=== PATIENT | female | born 1995 | race Caucasian/White ===

== ENCOUNTER 2023-08-15 12:46 | Outpatient (OUT) | payer OTHER, SELFPAY ==
--- NOTE | 2023-08-15 | US_ITS ---
The [address] [address] Patient Name: IZABEL VILLALOBOS MRN: [id number] date: 1995 Sex: F Assigned Patient Location: [facility] Current Patient Location: [facility] Accession/Order Number: [id number] Exam Date: 08/15/2023 12:49 Report Date: 08/15/2023 14:38 At the request of: ALEX HEATH Procedure: US OB transvaginal EXAMINATION: US OB transvaginal HISTORY: MISSED MENSES COMPARISON: No relevant comparison available. FINDINGS: GESTATIONAL SAC: Present and normal appearing. YOLK SAC: Present and normal appearing. POLE: Present and normal appearing. CARDIAC: Present. UTERUS: Normal size and appearance. OVARIES: Right: Normal. Left: Normal. CERVIX: cm in length and closed. CUL-DE-SAC: Normal. OTHER: None. AGE BY LMP: 9 weeks 0 days WILLIAM BY LMP: 03/19/2024 AGE BY US CRL: 9 weeks 1 day WILLIAM BY US CRL: 03/18/2024 US/US OB transvaginal IMPRESSION: 1. Single live intrauterine . Electronically authenticated by: NARENDRA MISTRY Date: 08/15/2023 14:38
== END 2023-08-15 12:47 | disposition home or self-care (01) ==
LOC: NOMS 12:46
PROVIDERS: Visit Provider Obstetrics & Gynecology
DX: N92.6 Irregular menstruation, unspecified (principal)
CPT/HCPCS: 76817

== ENCOUNTER 2023-09-03 12:59 | Outpatient (OUT) | payer OTHER, SELFPAY ==
[2023-09-03 13:28] LABS: Basophils Percent Auto 0.3 % (0.2-2.0); Eosinophils Absolute Auto 0.1 10^3/uL (0.0-0.7); Eosinophils Percent Auto 1.9 % (0.9-7.0); Hematocrit 39.8 % (36.0-48.0); Hemoglobin 13.5 g/dL (12.0-16.0); Lymphocytes Absolute Auto 1.4 10^3/uL (1.2-3.8); Lymphocytes Percent Auto 21.9 % (20.5-60.0); Mean Corpuscular HGB Conc 33.9 g/dL (29.9-35.2); Mean Corpuscular Hemoglobin 30.9 pg (26.7-34.0); Mean Corpuscular Volume 91.1 fL (81.0-99.0); Mean Platelet Volume 11.5 fL (9.5-13.5); Monocytes Absolute Auto 0.4 10^3/uL (0.3-0.8); Monocytes Percent Auto 6.2 % (1.7-12.0); Neutrophils Absolute Auto 4.4 10^3/uL (1.4-6.5); Neutrophils Percent Auto 69.7 % (43.0-75.0); Platelet Count 207 10^3/uL (150-450); Red Blood Count 4.37 10^6/uL (4.20-5.40); Red Cell Distribution Width 12.6 % (11.0-15.0); White Blood Count 6.3 10^3/uL (4.0-11.0)
[2023-09-03 13:48] LABS: Estimated Average Glucose 88 mg/dL; Glycohemoglobin A1C 4.7 % (4.5-6.2)
[2023-09-03 13:52] LABS: BOX Test Sent Out Y
[2023-09-04 06:08] LABS: HBsAg Screen Negative (Negative); HCV Ab Non Reactive (Non Reactive); HIV Ab/p24 Ag Screen Non Reactive (Non Reactive)
[2023-09-04 12:09] LABS: Rapid Plasma Reagin, Quant Non Reactive titer (NonRea<1:1)
== END 2023-09-03 13:00 | disposition home or self-care (01) ==
LOC: LAB 13:03
PROVIDERS: Visit Provider Obstetrics & Gynecology
DX: N92.6 Irregular menstruation, unspecified (principal); Z36.0 Encounter for antenatal screening for chromosomal anomalies
CPT/HCPCS: 36415; 83036; 85025; 86592; 86762; 86803; 86850; 86900; 86901; 87086; 87340; 87389

== ENCOUNTER 2023-09-12 20:27 | Outpatient (REF) | payer OTHER, SELFPAY | END 2023-09-12 20:28 | disposition home or self-care (01) | LOC: LAB 20:27 | PROVIDERS: Visit Provider Obstetrics & Gynecology | DX: Z01.419 Encounter for gynecological examination (general) (routine) without abnormal findings (principal) | CPT/HCPCS: G0145 ==

== ENCOUNTER 2023-11-07 09:34 | Outpatient (OUT) | payer OTHER, SELFPAY ==
--- NOTE | 2023-11-07 09:35 | US_ITS ---
[address] [address] Patient Name: IZABEL VILLALOBOS MRN: [id number] date: 1995 Sex: F Assigned Patient Location: [facility] Current Patient Location: [facility] Accession/Order Number: [id number] Exam Date: 11/07/2023 09:36 Report Date: 11/07/2023 11:12 At the request of: CESAR ASIF Procedure: US OB cervical length EXAMINATION: US OB anatomy, US OB cervical length HISTORY: ANATOMY COMPARISON: No relevant comparison available. TECHNIQUE: Transabdominal sonographic examination was performed for obstetrical and evaluation. FINDINGS: Number: 1 Heart Rate: 150.0 bpm H.B. /min Amniotic Fluid Volume: Subjectively normal position: Cephalic presentation, longitudinal lie Placental Location: Anterior. The placenta is 6.3 cm from the cervical os Cervix Length: 5 cm , closed Normal anatomy: Lateral ventricles, cerebellum, posterior fossa, nose, lips, orbits, four-chamber heart, RVOT, LVOT, diaphragm, stomach, kidneys, abdominal cord insertion, bladder, umbilical arteries, three-vessel cord, spine, extremities BIOMETRY: BPD: 4.7 cm 20 weeks 1 days , 16% HC: 18.1 cm 20 weeks 3 days, 20% AC: 16.0 cm 21 weeks 1 days, 47% FL: 3.5 cm 21 weeks 1 days , 46% EFW:394.5 grams; 14 ounces, 47% FL/AC: 22.0 FL/BPD: 75.6 HC/AC: 1.1 GESTATIONAL AGE: Age by EDC: 21 weeks 0 days WILLIAM by EDC: 03/21/2024 Age by current US: 20 weeks 5 days WILLIAM by current US: 03/19/2020 US/US OB cervical length IMPRESSION: Normal anatomy scan Closed cervix measuring 5 cm in length *Reference: [employer] Practice Guideline for the performance of Obstetric Ultrasound Examinations, February 24, 2007. Electronically authenticated by: DAVID CHENG Date: 11/07/2023 11:12
--- NOTE | 2023-11-07 09:35 | US_ITS ---
[address] [address] Patient Name: IZABEL VILLALOBOS MRN: [id number] date: 1995 Sex: F Assigned Patient Location: [facility] Current Patient Location: [facility] Accession/Order Number: [id number] Exam Date: 11/07/2023 09:36 Report Date: 11/07/2023 11:12 At the request of: CESAR ASIF Procedure: US OB anatomy EXAMINATION: US OB anatomy, US OB cervical length HISTORY: ANATOMY COMPARISON: No relevant comparison available. TECHNIQUE: Transabdominal sonographic examination was performed for obstetrical and evaluation. FINDINGS: Number: 1 Heart Rate: 150.0 bpm H.B. /min Amniotic Fluid Volume: Subjectively normal position: Cephalic presentation, longitudinal lie Placental Location: Anterior. The placenta is 6.3 cm from the cervical os Cervix Length: 5 cm , closed Normal anatomy: Lateral ventricles, cerebellum, posterior fossa, nose, lips, orbits, four-chamber heart, RVOT, LVOT, diaphragm, stomach, kidneys, abdominal cord insertion, bladder, umbilical arteries, three-vessel cord, spine, extremities BIOMETRY: BPD: 4.7 cm 20 weeks 1 days , 16% HC: 18.1 cm 20 weeks 3 days, 20% AC: 16.0 cm 21 weeks 1 days, 47% FL: 3.5 cm 21 weeks 1 days , 46% EFW:394.5 grams; 14 ounces, 47% FL/AC: 22.0 FL/BPD: 75.6 HC/AC: 1.1 GESTATIONAL AGE: Age by EDC: 21 weeks 0 days WILLIAM by EDC: 03/21/2024 Age by current US: 20 weeks 5 days WILLIAM by current US: 03/19/2020 US/US OB anatomy IMPRESSION: Normal anatomy scan Closed cervix measuring 5 cm in length *Reference: [employer] Practice Guideline for the performance of Obstetric Ultrasound Examinations, February 24, 2007. Electronically authenticated by: DAVID CHENG Date: 11/07/2023 11:12
== END 2023-11-07 09:35 | disposition home or self-care (01) ==
LOC: NOMS 09:34
PROVIDERS: Visit Provider Physician Assistant
DX: Z34.92 Encounter for supervision of normal pregnancy, unspecified, second trimester (principal); Z36.89 Encounter for other specified antenatal screening; Z3A.20 20 weeks gestation of pregnancy
CPT/HCPCS: 36415; 76805; 76817; 82105

== ENCOUNTER 2023-11-07 10:37 | Outpatient (OUT) | payer OTHER, SELFPAY ==
[2023-11-09 01:07] LABS: AFP Value 56.1 ng/mL (.); Insulin Dep Diabetes No (.); Maternal Age At EDD 28.3 yr (.); OSBR Risk 1 IN 10000 (.); Results Report (.)
== END 2023-11-07 10:38 | disposition home or self-care (01) ==
LOC: LAB 10:38
PROVIDERS: Visit Provider Obstetrics & Gynecology
DX: Z34.92 Encounter for supervision of normal pregnancy, unspecified, second trimester (principal); Z36.89 Encounter for other specified antenatal screening
CPT/HCPCS: 36415; 82105

== ENCOUNTER 2023-12-13 10:31 | Outpatient (OUT) | payer OTHER, SELFPAY ==
--- OUTSIDE RECORDS SUMMARY | 2023-12-13 10:42 | XMS_ITS | CCD ---
Author Organization [facility] Inform ion Partnership [facility] Care Team Providers Care Furnace Attendant Name Role Phone Unavailable Primary Care Provider UnavailSUZI [place] Admitting Unavailable SUZI ALMONTE Attending Unavailable BHARAT, DR EVANS Attending Unavailable BHARAT, DR EVANS Consulting Unavailable BHARAT, DR EVANS Admitting Unavailable MISC, DR MADRID Primary Care Unavailable NONE, XXXX Primary Care Physician Unavailab Cheryl Moraes Unavailable Unavailable Aidan Melton Attending Unavailable ALEX HEATH Attending Unavailable CESAR ASIF Attending Unavailable ALEX HEATH Attending Unavailable Medications Current Medications Medication Drug Class(es) Dates Sig (Normalized) Sig (Original) acetaminophen 325 mg / HYDROcodone bitartrate 5 mg oral tablet (1 source) Opioid Agonist Start: 07-06-2020 End: 07-13-2020 take 1 tablet by mouth every six hours as needed for pain, then take 1 tablet by mouth as needed for pain HYDROcodone-acetamin ophen (NORCO) 5-325 MG per tablet Indications: Postoperative state Take 1 tablet by mouth every 6 hours as needed for Pain for up to 7 days. Intended supply: 3 days. Take lowest dose possible to manage pain 24 tablet 0 07/06/2020 07/13/2020 Active amoxicillin 875 mg oral tablet (1 source) Penicillin-class Antibacterial Start: 08-20-2023 End: 08-27-2023 take 1 tablet by mouth twice daily amoxicillin 875 mg Tab 875 mg = 1 tab(s), Oral, BID, X 7 day(s), # 14 tab(s), Refills(s) 0, Pharmacy: [facility], 165, cm, 08/20/23 14:01:00 EDT, Height/Length Dosing, 70.4, kg, 08/20/23 14:01:00 EDT, Weight Dosing Start Date: 08/20/23 Stop Date: 08/27/23 Status: Ordered 30 ml bupivacaine hydrochloride 5 mg/ml injection (1 source) Amide Local Anesthetic Start: 07-06-2020 bupivacaine (PF) (MARCAINE) 0.5 % injection 10 ml bupivacaine liposome 13.3 mg/ml injection (1 source) Start: 07-06-2020 bupivacaine liposome (EXPAREL) 1.3 % injection calcium chloride 0.0014 meq/ml / potassium chloride 0.004 meq/ml / sodium chloride 0.103 meq/ml / sodium lactate 0.028 meq/ml injectable solution (1 source) Start: 07-06-2020 lactated ringers infusion cephalexin 500 mg oral capsule (1 source) Cephalosporin Antibacterial Start: 07-06-2020 End: 07-13-2020 take 1 capsule by mouth three times daily cephALEXin (KEFLEX) 500 MG capsule Take 1 capsule by mouth 3 times daily for 7 days 21 capsule 0 07/06/2020 07/13/2020 Active 1 ml diphenhydrAMINE hydrochloride 50 mg/ml cartridge (1 source) Histamine-1 Receptor Antagonist Start: 07-06-2020 End: 07-06-2020 diphenhydrAMINE (BENADRYL) injection 12.5 mg docusate sodium 50 mg / sennosides, penitentiary 8.6 mg oral tablet (1 source) Start: 07-06-2020 take 8.6-50 mg by mouth once as needed senna-docusate (PERICOLACE) 8.6-50 MG per tablet Take 2 tablets by mouth daily as needed for Constipation Start taking 5 days after surgery. 60 tablet 1 07/06/2020 Active duloxetine 60 mg Cap-DR (1 source) Start: 08-11-2014 take 1 capsule by mouth once daily duloxetine 60 mg Cap-DR 60 mg, Oral, Daily, Refills(s) 0 Start Date: 08/11/14 Status: Ordered 2 ml fentaNYL 0.05 mg/ml injection (1 source) Opioid Agonist Start: 07-06-2020 fentaNYL (SUBLIMAZE) injection 25 mcg 1 ml hydrALAZINE hydrochloride 20 mg/ml injection (1 source) Arteriolar Vasodilator Start: 07-06-2020 hydrALAZINE (APRESOLINE) injection 5 mg 1 ml HYDROmorphone hydrochloride 1 mg/ml cartridge (1 source) Opioid Agonist Start: 07-06-2020 HYDROmorphone (DILAUDID) injection 0.5 mg ibuprofen 600 mg oral tablet (1 source) Nonsteroidal Anti-inflammatory Drug Start: 07-06-2020 take 1 tablet by mouth every six hours as needed for pain ibuprofen (ADVIL;MOTRIN) 600 MG tablet Take 1 tablet by mouth every 6 hours as needed for Pain 60 tablet 1 07/06/2020 Active loperamide hydrochloride 2 mg oral capsule (1 source) Opioid Agonist Start: 07-06-2020 End: 07-11-2020 take 1 capsule by mouth four times daily loperamide (IMODIUM) 2 MG capsule Take 1 capsule by mouth 4 times daily for 5 days 20 capsule 0 07/06/2020 07/11/2020 Active 1 ml meperidine hydrochloride 50 mg/ml injection (1 source) Opioid Agonist Start: 07-06-2020 meperidine (DEMEROL) injection 12.5 mg Misc Medication (1 source) Start: 03-29-2014 Misc Medication Control Pills daily Start Date: 03/29/14 Status: Ordered 30 ml morphine sulfate 1 mg/ml injection (1 source) Opioid Agonist Start: 07-06-2020 morphine (PF) injection 1 mg ondansetron 4 mg disintegrating oral tablet (2 sources) Serotonin-3 Receptor Antagonist Start: 07-06-2020 take 1 tablet by mouth every eight hours as needed for nausea ondansetron (ZOFRAN ODT) 4 MG disintegrating tablet Take 1 tablet by mouth every 8 hours as needed for Nausea or Vomiting 15 tablet 0 07/06/2020 Active Start: 07-06-2020 End: 07-06-2020 ondansetron (ZOFRAN) injecti on 4 mg 1 ml promethazine hydrochloride 25 mg/ml injection (1 source) Phenothiazine Start: 07-06-2020 End: 07-06-2020 promethazine (PHENERGAN) injection 6.25 mg 3 ml sodium chloride 9 mg/ml injection (5 sources) Start: 07-06-2020 sodium chlorid e flush 0.9 % injection Start: 07-06-2020 End: 07-06-2020 sodium chloride 0.9 % irriga tion Start: 07-06-2020 0.9 % sodium c hloride infusion Start: 07-06-2020 sodium chlorid e flush 0.9 % injection 10 mL Completed/Discontinued Medications Medication Drug Class(es) Dates Sig (Normalized) Sig (Original) MV-Min-Fe Fum-FA-DHA ( 1 PO) (1 source) MV-Min-Fe Fum-FA-DHA ( 1 PO) Take by mouth 0 Suspended tamsulosin hydrochloride 0.4 mg oral capsule (1 source) alpha-Adrenergic Jona Start: 07-06-2020 End: 07-06-2020 tamsulosin (FLOMAX) capsule 0.4 mg Start: 07-06-2020 End: 07-06-2020 tamsulosin (FLOMAX) capsule 0.4 mg Problems Problem Classification Problem Date Documented Date Episodic/Chronic Abdominal hernia (1 source) Left inguinal hernia 06-30-2019 Episodic Immunizations and screening for infectious disease (1 source) Encounter for screening for human papillomavirus (HPV); Translations: [ENC SCREENING HUMAN PAPILLOMAVIRUS] Onset: 02-15-2022 Episodic Other screening for suspected conditions (not mental disorders or infectious disease) (4 sources) Encounter for screening for malignant neoplasm of cervix; Translations: [ENC SCREENING MALIG NEOPLASM CERV] Onset: 02-14-2022 Episodic Otitis media and related conditions (1 source) Otitis media; Translations: [Otitis media, unspecified, right ear] Onset: 08-20-2023 Episodic Residual codes; unclassified (1 source) Needs influenza immunization 06-30-2019 Episodic Residual codes; unclassified (1 source) Postoperative state; Translations: [Postoperative state] Substance-related disorders (1 source) Cigarette smoker 06-30-2019 Chronic Comment on above: Added secondary to d ocumentation in Social History. Results Test Name Value Interpretation Reference Range Facil ity Ambulatory Visit Summaryon 0 08-20-2023 Ambulatory Visit Summary CRIS VILLALOBOSTONY Villalpando :1995 Visit Date:08/20/2023 Ambulatory Visit Instructions Your Diagnosis Right otitis media Your Care Team Attending Physician - Linh KWON, Aidan Butler Primary Care Physician - NONE, XXXX This Is Your Medications List amoxicillin (amoxicillin 875 mg Tab) Contact prescribing physician if questions or concerns Non-Formulary Medication (Misc Medication) duloxetine (duloxetine 60 mg Cap-DR) Procedures Performed left inguinal hernia repair (05/22/2013). Discharge Vitals Temperature (Temporal Artery) 36.5 ?C Heart Rate (Peripheral) 83 Blood Pressure 118/68 Height 165 cm Height 65 in Weight 70.4 kg Weight 154.88 lb BMI 25.86 Medications What How Much When Why Instructions New amoxicillin (amoxicillin 875 mg Tab) 1 Tablets By Mouth 2 times a day Right otitis media Duration: 7 Days Pickup at [facility] Unchanged duloxetine (duloxetine 60 mg Cap-DR) 60 Milligram By Mouth Every day Contact prescribing physician if questions or concerns Unchanged Non-Formulary Medication (Misc Medication) Control Pills daily Contact prescribing physician if questions or concerns Pharmacy Information [facility]: [address] [place] [id number] [phone] Medications and Immunizations Administered Not Given influenza virus vaccine, inactivated, Patient Refuses SARS-CoV-2 mRNA (tozinameran 5y-11y) vac, Postpone due to refusal Allergies No Known Allergies Problems Ongoing - Any problem that you are currently receiving treatment for. Cigarette smoker Influenza vaccination not up to date Historical - Any problem that you are no longer receiving treatment for. Left inguinal hernia Patient Survey You may receive a survey via text or e-mail asking about your office visit. Please share your experience with us by completing your survey. We appreciate your feedback and thank you for choosing us for your care. Education Materials Otitis Media, Adult Otitis media is a condition in which the middle ear is red and swollen (inflamed) and full of fluid. The middle ear is the part of the ear that contains bones for hearing as well as air that helps send sounds to the brain. The condition usually goes away on its own. What are the causes? This condition is caused by a blockage in the eustachian tube. This tube connects the middle ear to the back of the nose. It normally allows air into the middle ear. The blockage is caused by fluid or swelling. Problems that can cause blockage include: ? A cold or infection that affects the nose, mouth, or throat. ? Allergies. ? An irritant, such as tobacco smoke. ? Adenoids that have become large. The adenoids are soft tissue located in the back of the throat, behind the nose and the roof of the mouth. ? Growth or swelling in the upper part of the throat, just behind the nose (nasopharynx). ? Damage to the ear caused by a change in pressure. This is called barotrauma. What increases the risk? You are more likely to develop this condition if you: ? Smoke or are exposed to tobacco smoke. ? Have an opening in the roof of your mouth (cleft palate). ? Have acid reflux. ? Have problems in your body's defense system (immune system). What are the signs or symptoms? Symptoms of this condition include: ? Ear pain. ? Fever. ? Problems with hearing. ? Being tired. ? Fluid leaking from the ear. ? Ringing in the ear. How is this treated? This condition can go away on its own within 3?5 days. But if the condition is caused by germs (bacteria) and does not go away on its own, or if it keeps coming back, your doctor may: ? Give you antibiotic medicines. ? Give you medicines for pain. Follow these instructions at home: ? Take yuqm-rka-jqaydfj and prescription medicines only as told by your doctor. ? If you were prescribed an antibiotic medicine, take it as told by your doctor. Do not stop taking it even if you start to feel better. ? Keep all follow-up visits. Contact a doctor if: ? You have bleeding from your nose. ? There is a lump on your neck. ? You are not feeling better in 5 days. ? You feel worse instead of better. Get help right away if: ? You have pain that is not helped with medicine. ? You have swelling, redness, or pain around your ear. ? You get a stiff neck. ? You cannot move part of your face (paralysis). ? You notice that the bone behind your ear hurts when you touch it. ? You get a very bad headache. Summary ? Otitis media means that the middle ear is red, swollen, and full of fluid. ? This condition usually goes away on its own. ? If the problem does not go away, treatment may be needed. You may be given medicines to treat the infection or to treat your pain. ? If you were prescribed an antibiotic medicine, take it as told by yo (more content not included)... Normal [facility] Family Medicine Office/Clini c Noteon 08-20-2023 Family Medicine Office/Clinic Note Chief Complaint right ear pain HPI Staff 27 year old female presents with right ear pain, popping ,congestion, muffled hearing, feels like liquid in ear. No drainage. symptoms began two days ago. History of Present Illness Reviewed and agree with above documented HPI by medical assistant dermatology. Patient is a 27-year-old female who complains of right ear pain with a popping sensation and feeling of fluid in that ear. She denies any drainage from the ear. She states that the hearing on that side is muffled. The symptoms started about 2 days ago. She states that she does have some sinus congestion and has had that for about a week and a half. She states she has not done anything for treatment of symptoms. She has known allergies but she is currently with her second child. Review of Systems PHQ Score Initial Depression Screen Score: 0 SCORE Physical Exam Vitals & Measurements T: 36.5 ?C(Temporal Artery) HR: 83(Peripheral) BP: 118/68 SpO2: 99% HT: 65 in HT: 165 cm WT: 70.4 kg WT: 154.88 lb BMI: 25.86 General: Well developed, well nourished, in no acute distress, does not appear ill or septic Eyes: Pupils equal, round, and reactive to light. Conjunctivae and sclerae normal, and extraocular movements intact Ears: no deformity or lesions of external ear. Canals appear normal bilaterally. TM of left ear is intact, noninflamed, normal light reflex. TM of right ear is intact, inflamed, slightly bulging, absent light reflex. Hearing to the left ear is normal to conversational speech, right ear is diminished in hearing. Nose: No deformity, discharge, inflammation, or lesions Mouth: Mucous membranes moist. Normal oropharynx, and posterior pharynx without lesions or exudates. Tongue normal Neck: no adenopathy Lungs: Normal respiratory effort and clear to auscultation Cardio: regular rate and rhythm, no murmur Abdomen: Soft, non-distended, non-tender Musculoskeletal: No deformity or scoliosis noted. Normal range of motion. Joints normal. No erythema, edema, effusion, or ecchymosis Extremity: No clubbing, cyanosis, edema, or deformity, with normal ROM in both upper and lower bilateral extremities Neurologic: Grossly normal Skin: No rashes, ulcerations, or suspicious lesions Mental Status: Alert and oriented x3. Normal speech and thought content, normal mood and affect Assessment/Plan 1. Right otitis media (H66.91: Otitis media, unspecified, right ear) Will treat with amoxicillin. Finish course. Fluids/rest, PRN Tylenol/ibuprofen for pain and/or fever encouraged. May use antipyretics for symptomatic tx. Encouraged to follow up with PCP for recheck in about 5 days to ensure infection resolving, especially if symptoms worsening or fevers. Patient and/or parent verbalized understanding of treatment plan. Ordered: amoxicillin, 875 mg = 1 tab(s), Oral, BID, X 7 day(s), # 14 tab(s), Refills(s) 0, Pharmacy: [facility], 165, cm, 08/20/23 14:01:00 EDT, Height/Length Dosing, 70.4, kg, 08/20/23 14:01:00 EDT, Weight Dosing Portions of this record may have been created with voice recognition artificial intelligence software, specifically [employer], [employer] and or [employer]. Occasional wrong-word or `qkhvf-c-bewc? substitutions may have occurred due to the inherent limitations of voice recognition and artificial intelligence software. Follow-up No qualifying data available Patient Education Otitis Media, Adult, Efkq-rq-Gqqe Problem List/Past Medical History Ongoing Cigarette smoker Influenza vaccination not up to date Historical Left inguinal hernia Procedure/Surgical History left inguinal hernia repair (05/22/2013). Medications amoxicillin 875 mg Tab, 875 mg= 1 tab(s), Oral, BID duloxetine 60 mg Cap-DR, 60 mg, Oral, Daily, Not taking Misc Medication, Not taking Allergies No Known Allergies Social History Tobacco - Medium Risk, 06/30/2019 Former smoker, quit more than 30 days ago Tobacco Use:. Never Smokeless Tobacco Use:. Cigarettes, 08/20/2023 Family History Asthma: Sister. Hypertension: Mother and Father. Stroke: Grandparent. Immunizations Vaccine Date Status Comments influenza virus vaccine, inactivated - Not Given Patient Refuses SARS-CoV-2 mRNA (heber 5y-11y) vac - Not Given Postpone due to refusal Normal [facility] Comment on above: Result Comment: Elec tronically Signed By: Linh KWON, Aidan Miller.ryanne\Date and Time Signed: 08/20/23 14:33 EDT Patient Educationon 08-20-19 24 Patient Education ENT Otitis Media, Adult Otitis media is a condition in which the middle ear is red and swollen (inflamed) and full of fluid. The middle ear is the part of the ear that contains bones for hearing as well as air that helps send sounds to the brain. The condition usually goes away on its own. What are the causes? This condition is caused by a blockage in the eustachian tube. This tube connects the middle ear to the back of the nose. It normally allows air into the middle ear. The blockage is caused by fluid or swelling. Problems that can cause blockage include: ? A cold or infection that affects the nose, mouth, or throat. ? Allergies. ? An irritant, such as tobacco smoke. ? Adenoids that have become large. The adenoids are soft tissue located in the back of the throat, behind the nose and the roof of the mouth. ? Growth or swelling in the upper part of the throat, just behind the nose (nasopharynx). ? Damage to the ear caused by a change in pressure. This is called barotrauma. What increases the risk? You are more likely to develop this condition if you: ? Smoke or are exposed to tobacco smoke. ? Have an opening in the roof of your mouth (cleft palate). ? Have acid reflux. ? Have problems in your body's defense system (immune system). What are the signs or symptoms? Symptoms of this condition include: ? Ear pain. ? Fever. ? Problems with hearing. ? Being tired. ? Fluid leaking from the ear. ? Ringing in the ear. How is this treated? This condition can go away on its own within 3?5 days. But if the condition is caused by germs (bacteria) and does not go away on its own, or if it keeps coming back, your doctor may: ? Give you antibiotic medicines. ? Give you medicines for pain. Follow these instructions at home: ? Take snwt-szi-mmtwkqa and prescription medicines only as told by your doctor. ? If you were prescribed an antibiotic medicine, take it as told by your doctor. Do not stop taking it even if you start to feel better. ? Keep all follow-up visits. Contact a doctor if: ? You have bleeding from your nose. ? There is a lump on your neck. ? You are not feeling better in 5 days. ? You feel worse instead of better. Get help right away if: ? You have pain that is not helped with medicine. ? You have swelling, redness, or pain around your ear. ? You get a stiff neck. ? You cannot move part of your face (paralysis). ? You notice that the bone behind your ear hurts when you touch it. ? You get a very bad headache. Summary ? Otitis media means that the middle ear is red, swollen, and full of fluid. ? This condition usually goes away on its own. ? If the problem does not go away, treatment may be needed. You may be given medicines to treat the infection or to treat your pain. ? If you were prescribed an antibiotic medicine, take it as told by your doctor. Do not stop taking it even if you start to feel better. ? Keep all follow-up visits. This information is not intended to replace advice given to you by your health care provider. Make sure you discuss any questions you have with your health care provider. Document Revised: 08/21/2021 Document Reviewed: 08/21/2021 [employer] Patient Education ? 2022 [employer] Normal [facility] PAP ACOG PANEL 2: 21 to 29on 02-22-2022 . . Normal [facility] Comment on above: Performed By: #### [id number] #### [facility] [address] [place] [address] Dr. Jj Norman Age Gdln ACOG Testing - [facility] Comment on above: Performed By: #### [id number] #### [facility] [address] [address] [address] Jj Norman DIAGNOSIS: Comment [facility] Comment on above: Result Comment: NEGA TIVE FOR INTRAEPITHELIAL LESION OR MALIGNANCY. Performed By: #### [id number] #### [facility] [address] [address] [address] Jj Norman Methodology: Comment [facility] Comment on above: Result Comment: This liquid based ThinPrep(R) pap test was screened with the use of an image guided system. Performed By: #### [id number] #### [facility] [address] [place] [address] Dr. Jj Norman Note: Comment [facility] Comment on above: Result Comment: The Pap smear is a screening test designed to aid in the detection of premalignant and malignant conditions of the uterine cervix. It is not a diagnostic procedure and should not be used as the sole means of detecting cervical cancer. Both false-positive and false-negative reports do occur. . Performed By: #### [id number] #### [facility] [address] [place] [address] Dr. Jj Norman Performed by: Comment Normal [facility] Comment on above: Result Comment: Ashlyn Prado, Pesticide Chemist (ASCP) Performed By: #### [id number] #### [facility] [address] [place] [address] Dr. Jj Norman Reflex Criteria: Comment [facility] Comment on above: Result Comment: The HPV DNA reflex criteria were not met with this specimen result therefore, no HPV testing was performed. . Performed By: #### [id number] #### [facility] [address] [place] [address] Dr. Jj Norman Specimen adequacy: Comment [facility] Comment on above: Result Comment: Sati sfactory for evaluation. Endocervical and/or squamous metaplastic cells (endocervical component) are present. Performed By: #### [id number] #### [facility] [address] [place] [address] Dr. Jj Norman OPERATIVE REPORTon OPERATIVE REPORT [address] [id number] OPERATIVE REPORT PATIENT NAME: IZABEL ARCE : 1995 MED REC NO: [id number] ROOM: ACCOUNT NO: [id number] ADMIT DATE: 07/06/2020 PROVIDER: Suzi Almonte DATE OF PROCEDURE: 07/06/2020 INDICATIONS FOR SURGERY: Fecal incontinence, anal sphincter deficiency, and perineal disruption status post traumatic vaginal delivery with fourth-degree tear. PREOPERATIVE DIAGNOSES: Fecal incontinence, anal sphincter deficiency, perineal disruption status post traumatic vaginal delivery with fourth-degree tear, grade-2 rectocele, and perineal deficiency. POSTOPERATIVE DIAGNOSES: Fecal incontinence, anal sphincter deficiency, perineal disruption status post traumatic vaginal delivery with fourth-degree tear, grade-2 rectocele, perineal deficiency, internal and external anal sphincter tears and deficiency, poor tissue turgor. PROCEDURES: Posterior colpoperineorrhaphy with perineal revision and internal anal sphincteroplasty as well as overlapping external anal sphincteroplasty. SURGEON: Suzi Almonte DO DOCTOR OF NAPRAPATHY: Dagmar Womack DO ANESTHESIA: General endotracheal. FINDINGS: As above. SPECIMENS: None. COMPLICATIONS: None. BLOOD LOSS: Approximately 50 mL. DRAINS: In-and-out Powers catheterization. COURSE: Prior to the procedure, risks and benefits of the procedure were explained to the patient. The patient understood and signed informed consent under no duress or confusion. A rectovaginal fistula had been ruled out in the office. The patient understands she could have some persistent fecal incontinence or urgency, that there could be rare risk of wound breakdown or fistula formation with long-term dyspareunia of up to 17% over 2 years. It was discussed with her and advised that her next delivery be done via section. She was prepped preoperatively with a bowel prep to be medically constipated postoperatively for least 5-7 days to allow the area to heal without a large-caliber stool being evacuated out of the anus. She did receive preoperative antibiotics, and EPC cuffs were functioning. Her COVID and tests were negative. She was taken back to the OR and prepped and draped in sterile fashion in the dorsal lithotomy position under general anesthesia. She was confirmed to be neutrally positioned by myself in candy cane stirrups. The bladder was drained with in-and-out Powers catheterization. The perineum was grasped with 2 Allis clamps at the introitus. The area was infiltrated with approximately 20 mL of a mixture of 266 mg of Exparel with 20 mL of saline as well as 10 mL of 0.5% Marcaine plain for both immediate and long-term pain relief. The area of the posterior vagina, introitus, and perianus was injected and infiltrated with negative vascular withdrawal . A naveed-shaped incision was made with a 15-blade scalpel and extended up to the apex of the posterior rectocele, which was at the distal third of the vagina. Dissection down to the muscularis of the internal and external sphincters as well as the insertions of the bulbocavernosus and transverse perinei muscles was completed. The rectocele was dissected away from perirectal fascia and mucosa as perianal dissection helped to free up both areas of the external anal sphincter in particular. It is important to note that skin tissue turgor was extremely poor and elastic. Skin tended to tear really very easily, so extra caution was used to ensure no tearing of the mucosa or muscular tissue. It was noted that there was a rupture between the internal anal sphincter and the external anal sphincter that needed to be repaired as well. Cautery was used to treat some rather moderate oozing during dissection as well as pressure from operative sponges. 1-0 Vicryl suture was then used to build up the lateral perirectal fascia in an interrupted manner, incorporating the lower levators into the midline. Internal anal sphincteroplasty was also completed with 1-0 Vicryl suture with finger into the rectum to ensure no intrarectal suture placement as well as reestablishing a shelf of which to support the external anal sphincter apically. Next, the ends of the external anal sphincter found at 10 and 2 o'clock were brought into the midline, and in an overlapping manner, the right part of the sphincter was overlapped on top of the left portion using a [id number], doubly placed, 1-0 Vicryl suture in four quadrants as well as reattaching the distal internal sphincter to the capsule of the external sphincter apically. This reduced redundancy of the anus from approximately 2-1/2 fingerbreadths down to 1 to 1-1/2 fingerbreadths. Superficial perirectal fascia and was brought into the midline with 1-0 Vicryl suture from the apex to the introitus of the posterior colpoperineorrhaphy as well as building up the perineum and reestablishing the perineal body with plication of the bulbocavernosus and transverse perinei muscles to the sphincter complexes. Bleeding was negligible at this time. The vaginal mucosa was then closed in a locked running position with 1-0 Vicryl suture from the apex down to the posterior introitus and anterior hymenal ring. 3-0 Monocryl was then used in a double-imbricated running manner through the introitus to buildup the perineum and back up from the anus to the introitus. Labia minora that were lacerated around this area were trimmed and closed appropriately. This did not reduce the aperture of the vaginal introitus or hour-glass the vagina. It did help to get rid of extreme redundancy under anesthesia of up to 4 fingerbreadths down to 2-1/2 fingerbreadths. This redundancy seemed to affect the way the patient defecated and some of her dyspareunia. Vaginal length and girth were maintained to a healthy degree. The perineum which was less than 1 cm between the anus and posterior introitus was now built up to 4 cm without a high-riding introitus. All incisions were hemostatic, and sponge and needle counts were correct. The patient tolerated the procedure well and went to Recovery in stable fashion. The mother was updated by phone POSTOPERATIVE COURSE: The patient will undergo a voiding trial in postop, and if her pain is less than 5, she will go home. If greater than 5, she will stay to be managed overnight. She will go home on oral narcotic pain medicine to alternate with Motrin; a stool softener, not to start for 5-7 days; Imodium 2 tablets four times a day for the next week; she understands maintaining a liquid diet but may use protein shakes. If she does have a BM and cannot help it, she should try and make the BM as soft as possible with good oral intake of water. She may also go home on some Flomax for any mild urinary retention from an S2/3/4 reflex arc due to the surgery. SUZI ALMONTE [id number] Doc#: [id number] CC: Suzi Quinones Armida Normal [facility] POCT urine pregnancyon 07-06 Beta HCG ( test) Ql (U) Negative NEGATIVE [facility] [place] [place] [place] Comment on above: Specimens with hCG l evels near the threshold of the test (25 mIU/mL) may give a negative or indeterminate result. In such cases, another test should be performed with a new specimen in 48-72 hours. If early is suspected clinically in this setting, correlation with quantitative serum b-hCG level is suggested. TESTING PERFORMED AT [address] [place] [address] Vital Signs Date Time Vital Sign Value Performing Clinician Facility 08-20-2023 13:59-0400 Blood Pressure Location [facility] 08-20-2023 13:59-0400 Body temperature 97.7 [degF] [facility] 08-20-2023 13:59-0400 Diastolic blood pressure 68 mm[Hg] [facility] 08-20-2023 13:59-0400 Heart rate 83 /min [facility] 08-20-2023 13:59-0400 SaO2% (BldA) [Mass fraction] 99 % [facility] 08-20-2023 13:59-0400 Systolic blood pressure 118 mm[Hg] [facility] 07-06-2020 10:45-0500 BP Diastolic 82 mm[Hg] [place] 07-06-2020 10:45-0500 BP Systolic 121 mm[Hg] [place] 07-06-2020 10:45-0500 Pulse (Heart Rate) 89 /min [place] 07-06-2020 10:45-0500 Pulse Oximetry 100 % Suzi Tiara [place], [place] 07-06-2020 10:15-0500 Body Temperature 97.59 [degF] Suzi Almonte [place], [place] 07-06-2020 07:47-0500 BMI (Body Mass Index) 24 kg/m2 [place] 07-06-2020 07:47-0500 Body weight 65.43 kg Suzi Tiara [place], [place] 07-06-2020 07:47-0500 Respiratory Rate 18 /min Suzi Almonte [place], [place] 06-29-2020 10:13-0500 Height 165.1 cm Suzi Almonte [place] Encounters Encounter Date Encounter Type Care Provider Facility Start: 11-14-2023 End: 11-14-2023 ambulatory ALEX ARMIDA Not Available Start: 10-10-2023 End: 10-10-2023 ambulatory CESAR ASIF Not Available Start: 09-12-2023 End: 09-12-2023 ambulatory ALEX ARMIDA Not Available Start: 08-20-2023 End: 08-21-2023 ambulatory Aidan Melton Facility:[facility] Start: 08-20-2023 End: 08-20-2023 Patient encounter procedure Aidan Melton [facility] Start: 08-15-2023 End: 08-15-2023 ambulatory ALEX ARMIDA Not Available Start: 02-14-2022 End: 02-14-[address] NATHAN NICHOLSON Facility: Start: 07-06-2020 End: 07-06-2020 Patient encounter procedure SUZI ALMONTE [facility] Start: 07-06-2020 End: 07-06-2020 Subsequent hospital visit by physician Suzi Almonte Work Phone: [facility] [place] Comment on above: Postoperative state (Primary Dx) Procedures Date Procedure Procedure Detail Performing Clinician Start: 07-06-2020 Urine test visual color cmprsn meths Suzi Almonte Work Phone: Start: 05-22-2013 left inguinal hernia repair Aidan Melton Plan of Treatment Date Care Activity Detail Author Start: 01-26-2020 [facility] End: 07-06-2020 Blood glucose - POCT Blood glucose - POCT Point of Care Testing Routine One Time for 1 Occurrences starting 07/06/2020 until 07/06/2020 [facility] Comment on above: One Time for 1 Occur rences starting 07/06/2020 until 07/06/2020 Oxygen therapy [[facility] Data Set] Initiate Oxygen Therapy Protocol Respiratory Care Routine Daily until discontinued starting 07/06/2020 [facility] Comment on above: Daily until disconti nued starting 07/06/2020 Phase I & II - meter ed glucose Phase I & II - metered glucose Point of Care Testing Routine As Needed until discontinued starting 07/06/2020 [facility] Comment on above: As Needed until disc ontinued starting 07/06/2020 End: 07-06-2020 , urine POCT , urine POCT Point of Care Testing Routine One Time for 1 Occurrences starting 07/06/2020 until 07/06/2020 [facility] Comment on above: One Time for 1 Occur rences starting 07/06/2020 until 07/06/2020 Immunizations Immunization Date Immunization Notes Care Provider Fa cility NEGATED: Highlighted row has not occurred!08-20-2023 influenza virus vaccine, unspecified formulation [facility] NEGATED: Highlighted row has not occurred!08-20-2023 SARS-CoV-2 mRNA (tozinameran 5y-11y) vaccine [facility] Payers Date Payer Category Payer Unknown [id number] [id number] 1995 Unknown [id number] [id number] [id number] 1995 Unknown [id number] [id number] 1995 Unknown [id number] 2.16.84 [id number] 1995 Unknown [id number] 2.16.84 [id number] 1995 Unknown [id number] 2.16.84 [id number] 1995 Unknown [id number] 2.16.84 [id number] 1959 Private Health Insurance [id number] Social History Date Type Detail Facility Start: 07-06-2020 End: 08-20-2023 Tobacco smoking status NHIS Former smoker [facility] Start: 07-06-2020 Tobacco use and exposure Never used [place], [place] Start: 07-06-2020 Alcohol intake Ex-drinker (finding) [place] Start: 06-29-2020 Tobacco Comment Jun 2019 [place] Sex Assigned At Not on file [place] Exposure to SARS-CoV -2 (event) Not sure [place], [place] Tobacco smoking status Never [facility] Sex Assigned At Female [facility] Functional Status Date Assessment Result Facility 08-20-2023 Functional Status N/A [facility] Discharge instructions 08-20-2023 Note Date & Type Note Facility 08-20-2023 Hospital Discharg e instructions Patient Education 08/20/2023 14:33:02 Otitis Media, Adult, Iyfp-jc-[id number] Otitis Media, Adult Otitis media is a condition in which the middle ear is red and swollen (inflamed) and full of fluid. The middle ear is the part of the ear that contains bones for hearing as well as air that helps send sounds to the brain. The condition usually goes away on its own. What are the causes? This condition is caused by a blockage in the eustachian tube. This tube connects the middle ear to the back of the nose. It normally allows air into the middle ear. The blockage is caused by fluid or swelling. Problems that can cause blockage include: A cold or infection that affects the nose, mouth, or throat. Allergies. An irritant, such as tobacco smoke. Adenoids that have become large. The adenoids are soft tissue located in the back of the throat, behind the nose and the roof of the mouth. Growth or swelling in the upper part of the throat, just behind the nose (nasopharynx). Damage to the ear caused by a change in pressure. This is called barotrauma. What increases the risk? You are more likely to develop this condition if you: Smoke or are exposed to tobacco smoke. Have an opening in the roof of your mouth (cleft palate). Have acid reflux. Have problems in your body's defense system (immune system). What are the signs or symptoms? Symptoms of this condition include: Ear pain. Fever. Problems with hearing. Being tired. Fluid leaking from the ear. Ringing in the ear. How is this treated? This condition can go away on its own within 3 5 days. But if the condition is caused by germs (bacteria) and does not go away on its own, or if it keeps coming back, your doctor may: Give you antibiotic medicines. Give you medicines for pain. Follow these instructions at home: Take infa-sow-dhrqktr and prescription medicines only as told by your doctor. If you were prescribed an antibiotic medicine, take it as told by your doctor. Do not stop taking it even if you start to feel better. Keep all follow-up visits. Contact a doctor if: You have bleeding from your nose. There is a lump on your neck. You are not feeling better in 5 days. You feel worse instead of better. Get help right away if: You have pain that is not helped with medicine. You have swelling, redness, or pain around your ear. You get a stiff neck. You cannot move part of your face (paralysis). You notice that the bone behind your ear hurts when you touch it. You get a very bad headache. Summary Otitis media means that the middle ear is red, swollen, and full of fluid. This condition usually goes away on its own. If the problem does not go away, treatment may be needed. You may be given medicines to treat the infection or to treat your pain. If you were prescribed an antibiotic medicine, take it as told by your doctor. Do not stop taking it even if you start to feel better. Keep all follow-up visits. This information is not intended to replace advice given to you by your health care provider. Make sure you discuss any questions you have with your health care provider. Document Revised: 08/21/2021 Document Reviewed: 08/21/2021 [employer] Patient Education 2022 [employer]. [facility] Evaluation + Plan note Note Date & Type Note Facility Evaluation + Plan note No data available for this section [facility] Progress note Note Date & Type Note Facility Progress note No data available for this section [facility] Discharge Instructions * Instructions* Mackenzie Pinon RN - 07/06/2020 Learning About Urinary Catheter Care to Prevent Infection What is a urinary catheter? A urinary catheter is a flexible plastic tube used to drain urine from your bladder when you can't urinate on your own. The catheter allows urine to drain from the bladder into a bag. Two types of drainage bags may be used with a urinary catheter. A bedside bag is a large bag that you can hang on the side of your bed or on a chair. You can use it overnight or anytime you will be sitting or lying down for a long time. A leg bag is a small bag that you can use during the day. It is usually attached to your thigh or calf and hidden under your clothes. Having a urinary catheter increases your risk of getting a urinary tract infection. Germs may get on the catheter and cause an infection in your bladder or kidneys. The longer you have a catheter, the more likely it is that you will get an infection. You can help prevent this problem with good hygiene and careful handling of your catheter and drainage bags. How can you help prevent infection? Take care to be clean Always wash your hands well before and after you handle your catheter. Clean the skin around the catheter twice a day using soap and water. Dry with a clean towel afterward. You can shower with your catheter and drainage bag in place unless your doctor told you not to. When you clean around the catheter, check the surrounding skin for signs of infection. Look for things like pus or irritated, swollen, red, or tender skin around the catheter. Be careful with your drainage bag Always keep the drainage bag below the level of your bladder. This will help keep urine from flowing back into your bladder. Check often to see that urine is flowing through the catheter into the drainage bag. Empty the drainage bag when it is half full. This will keep it from overflowing or backing up. When you empty the drainage bag, do not let the tubing or drain spout touch anything. Keep the cap that comes with the tubing and cover the tip of the tubing when not in use. Be careful with your catheter Do not unhook the catheter from the drain tube until you are ready to change the tubing and bag. That could let germs get into the tube. Make sure that the catheter tubing does not get twisted or kinked. Do not tug or pull on the catheter. And make sure that the drainage bag does not drag or pull on the catheter. Do not put powder or lotion on the skin around the catheter. Talk with your doctor about your options for sexual intercourse while wearing a catheter. How do you empty a urine drainage bag? If your doctor has asked you to keep a record, write down the amount of urine in the bag before youempty it. Wash your hands before and after you touch the bag. 1. Remove the drain spout from its sleeve at the bottom of the drainage bag. 2. Open the valve on the drain spout. Let the urine flow out into the toilet or a container. Be careful not to let the tubing or drain spout touch anything. 3. After you empty the bag, close the valve. Then put the drain spout back into its sleeve at the bottom of the collection bag. How do you switch to a bedside bag for overnight use? Wash your hands before and after you handle the bags. 1. Empty the leg bag that is attached to the tubing and catheter. 2. Put a clean towel under the tubing attached to the leg bag. 3. Use an alcohol wipe to clean the tip of the tubing attached to the bedside bag. 4. To stop the flow of urine, pinch the catheter with your fingers just above the tubing connection. 5. Use a twisting motion to disconnect the leg bag tubing from the catheter. 6. Then securely connect the catheter to the tubing from the bedside bag. How can you clean a bedside drainage bag? Many people clean their bedside bag in the morning if they switch to a leg bag. To clean a bedside drainage ba. Remove the bedside bag and attach the leg bag. 2. Fill the bedside bag with 2 parts vinegar and 3 parts water. Let it stand for 20 minutes. 3. Empty the bag, and let it air dry. When should you call for help? Call your doctor now or seek immediate medical care if: You have symptoms of a urinary infection. These may include: ? Pain or burning when you urinate. ? A frequent need to urinate without being able to pass much urine. ? Pain in the flank, which is just below the rib cage and above the waist on either side of the back. ? Blood in your urine. ? A fever. Your urine smells bad. You see large blood clots in your urine. No urine or very little urine is flowing into the bag for 4 or more hours. Watch closely for changes in your health, and be sure to contact your doctor if: The area around the catheter becomes irritated, swollen, red, or tender, or there is pus draining from it. Urine is leaking from the place where the catheter enters your body. Follow-up care is a baca part of your treatment and safety. Be sure to make and go to all appointments, and call your doctor if you are having problems. It's also a good idea to know your test resultsand keep a list of the medicines you take. Where can you learn more? Go to [email or web address] and sign in to your [employer] account. Enter U010 in the Search Health Information box to learn more about Learning About Urinary Catheter Care to PreventInfection. If you do not have an account, please click on the Sign Up Now link. Current as of: November 23, 2019 Content Version: 12.6 [employer]. Care instructions adapted under license by [employer]. If you have questions about a medical condition or this instruction, always ask your healthcare professional. [employer] disclaims any warranty or liability for your use of this information. POSTOPERATIVE PATIENT INSTRUCTIONS MAJOR & MINOR SURGICAL PROCEDURES Congratulations! You have taken the brave step of undergoing a surgery in order to try to improve your health. Now it is time to focus on healing outside of the hospital / surgery center setting. To make your dismissal as successful as possible, it is recommended that you thoroughly review these postoperative instructions. These instructions pertain to, but are not limited to the following procedures: MAJOR ; Hysterectomy Vaginal / Laparoscopic / Robotic ; With or Without tube-ovarian Removal (Salpingo-oophorectomy) ; Sacrocolpopexy / Sacroperineopexy / Sacrocervicopexy (Lifting the vagina / cervix to the sacrum) ; Major Vaginal Prolapse repairs ; Cystocele repair (Anterior Colporrhaphy) ; Rectocele repair (Posterior Colporrhaphy) ; Enterocele repair ; Vaginal vault repair ; Closing or removal of the vagina (Colpocleisis / Colpectomy) ; Major urinary incontinence surgery (Dan Urethropexy, MMK) ; Major fibroid removal (Myomectomy) ; Major tubal surgery (re-anastomosis, ectopic , pelvic inflammatory disease) ; Major surgery for adhesions or endometriosis involving bowel ; Major vaginal mesh removal ; Fistula repair of the bladder or colorectum to the vagina ; Creation of a new vagina (Neovaginoplasty) or repair of a Mullerian Anomaly ; Other MINOR ; Hysteroscopy with Dilatation / Curettage, Endometrial Ablation ; Laparoscopy With or Without minor tubal or ovarian surgery ; Minor Vaginal Prolapse repairs ; Cystocele repair (Anterior Colporrhaphy) ; Rectocele repair (Posterior Colporrhaphy) ; Urethrocele repair ; Minor urinary incontinence surgery (Slings, Transurethral Bulking) ; Minor vaginal surgery (Mesh removal, Laser ablation, Biopsies, Labial revisions, Injections) ; Minor surgery of the bladder (DMSO, Hydrodistention, Botox, etc.) ; Other 1 POST OPERATIVE BASIC INSTRUCTIONS The office will call on the Saturday, or within 1 week, after your surgery to make sure you are doingwell and to answer questions. 1. Your 1st post-op visit will occur within 1-2 weeks after your surgery. 2. Your final post-op visit will occur @ 4-6 weeks depending on the surgery & your desire to return to work. 3. Your surgery and recovery may require more visits in between the 1st and final visits. DO S, DONT S, & WHEN TO CALL As reviewed with you on the morning of your discharge, for the 1st week out of surgery below is a QUICK list of DO s, DONT s, and WHEN TO CALL: 5 THINGS YOU MAY DO 5 THINGS YOU MAY NOT DO FOR 4-6 WEEKS -Shower with Ivory Soap and water -Tub bathe, hot tub, or swim -Gradually increase walking -Heavy lifting > 15lbs (2 gallons worth) -Go up and down stairs slowly -Insert anything into the vagina (sex, douching, tampons) -Drive a car / motorcycle (*See -Light housecleaning (dusting, dishwashing) Special Considerations) -Short local travel (restaurant, gnosticist) -Long distance travel > 1.5 hours (*See Special Considerations) 5 SYMPTOMS TO CALL FOR: -Sustained fever >100.4 despite Tylenol or a cold shower, especially associated with redness of incision/s -Pain out of the ordinary (>7) despite pain meds / anti-inflammatories -Heavy vaginal bleeding > 1 pad / hour with large red clots -Inability to eliminate urine (especially if catheterized) or flatus / stool (with sustained distention & nausea) -Calf pain or extreme shortness of breath QUESTIONS, CONCERNS, EMERGENCIES * Please call the office with any questions or concerns at [phone]. * If during office hours, your issue may require an appointment. If after hours, the answering service will connect you with the physician Neurology Physician Assistant. * If you are concerned that your issue may be emergent, PLEASE CALL FIRST. ; Many issues may be resolved over the phone and avoid an unnecessary and expensive ER visit. ; If you truly have an emergency related to the surgery and call first: *You will be directed to the hospital ER in which you had your surgery. [facility] primarily or [facility] rarely. [facility] patients may be asked to report to [facility] if Dr. Almonte s on-call partner is assuming responsibility. ; Calling first helps to expedite your care and avoids an unnecessary and expensive ambulance transfer to [facility]. Dial 911 or go to your closest ER if your emergency is related to a potential heart attack or stroke. 2 DISCHARGE MEDICINES * [place] 325/5mg tablets or alternative narcotic. Take 1-2 tablets by mouth every 4-6 hours as needed for pain. - Per [place] Board [employer] Pharmacy laws, only 1 week of narcotics may be prescribed at a time. - Do not take extra Tylenol (Acetaminophen) orally as [place] already contains the medicine. - May take 500mg orally every 4-6 hours if off of [place]. * Ibuprofen 400-800mg is safe to take. Take 1 tablet by mouth every 8 hours for inflammation. * Senokot S. Take two tablets by mouth every night to prevent constipation. Stop if loose stools occur. * If an antibiotic is required: Keflex 250-500mg take 1 tablet by mouth 3x / day as prescribed OR Cipro 250-500mg take 1 tablet by mouth 2x / day as prescribed * Other medicines or antibiotics may be prescribed based on your postoperative course or situation. *You may resume taking any medications you were taking before your surgery, unless told otherwise. DUE TO BLEEDING RISK, DO NOT RESUME HOME ANTICOAGULANTS UNLESS DISCUSSED SPECIAL CONSIDERATIONS After surgery, give yourself a chance to adjust and recover. Some patients feel fine within a month. Many need a little extra time. Do not be concerned if you feel fatigued for the first month, your body is recovering. It may take several weeks for you to get your energy back. Even if energy has returned, please do not be tempted to re-engage in strenuous activity. Although mild weight gain is not uncommon, most of it is IV fluid weight that your body will remove with time. You have the rest ofyour life to exercise, so some patience and rest is browning in the short term in order to heal successfully [employer]. Once you have fully recovered, you may focus on enjoying your life. Keep in mind, you will continue to heal for 6-12 months after surgery, so use common sense to protect your surgery (avoid repetitive heavy lifting, constipation, chronic pelvic strain.) In particular, if you had a hysterectomy, you may have both physical and emotional effects that maybe brief or fci. After hysterectomy, periods will stop and a woman can no longer achieve . Despite popular myth, post-hysterectomy weight gain is not due to the hysterectomy, but is usually a result of other factors. A depressive emotional reaction to loss of the uterus is not uncommon or abnormal. Please discuss any concerns with your health care provider if persistent. Sexual response may change after hysterectomy. There are no definitive studies showing decreased orgasmic potential post-hysterectomy. Some women have a heightened response due to correcting painful pathology. O varian removal may decrease estrogenization, leading to vaginal dryness and menopausal hot flashes.Hormonal therapy may need to be discussed. SOME SURGERIES HAVE SPECIAL CONSIDERATIONS MAJOR * For all major surgeries listed above, you may drive after your 1week post-op visit if cleared, have discontinued narcotic pain meds, and are able to depress the brake quickly without pain. Long distance travel may be resumed in 4 weeks if stable. * With major robotic hysterectomy, you should refrain from intercourse for 8 weeks, other hysterectomies 6 weeks. MINOR * Minor surgeries may drive next day any distance if off narcotic pain meds and are able to brake safely. * For minor vaginal surgeries for prolapse and / or urinary incontinence procedures, maintain pelvic rest for 4 weeks. Exercise and work may be resumed within 2-4 weeks depending on healing. * For minor surgeries of the vagina, uterus, and bladder, hysteroscopy, D&C, and laparoscopy, maintain pelvic rest for 1-2 weeks depending on healing. Exercise and work may be resumed within the week. 3 CONSENT ITEMS REVISITED IN THE POST OPERATIVE PERIOD 1. Physical and sexual activity will be restricted in varying degrees for an indeterminate period of time, but most often 2-8 weeks depending on the breadth of surgery. It is impossible to list everyundesirable effect and that the condition for which surgery is done is not always cured or significantly improved, and in rare cases may even worsen. 2. There is no 100% guarantee that the planned surgery, despite everything being done correctly andto the medico-surgical standard with resolve a condition 100% including but not limited to pain, urinary infections, bladder function, or defecatory dysfunction. Specifically, up to 20% of patients with abdominopelvic pain, 27% of those with UTI's, 16-26% with urinary incontinence or voiding dysfunction, and 40% with defecatory dysfunction may not see substantial long lasting improvement from a surgical intervention. 3. Dangerous blood clots in the legs or lungs may occur post-operatively. Patients on chronic bloodthinners, particularly those without antidote, may be at significant risk of bleeding, hemorrhage, hematoma formation, need for transfusion, and over the regular population. Life-threatening bleeding complications may even occur up to 4 weeks out of surgery even if anticoagulation is managed appropriately. If the patient has been taken off anticoagulation because of bleeding, this could expose her to life-threatening blood clots in the legs or lungs, IA, or stroke. 4. Elderly patients over the age of 70 may experience up to a 2% mortality rate in the postsurgicalperiod related to comorbidities and declining health. A living will and is recommended to be reviewed. 5. For major outpatient procedures requiring less than a 24 hour stay, you will be dismissed from the hospital or surgery setting when stable and meets criteria for discharge. Less than 5% of patients may rebound to an emergency setting for some of the risks mentioned above even though they have met criteria for dismissal earlier. Outpatient surgical recovery usually occurs between 2 and 4 weeks.For major inpatient procedures requiring an average 1-3 day hospital stay, and the patient may not be fully recovered from major surgery for up to 6-8 weeks. Please understand with Medicare and insurance reform, only 1 night will be approved for most reconstructive or robotic procedures. In regards to reconstructive pelvic and incontinence surgery: 1. Approximately 85% of patients experience a reasonable improvement >5 years in pelvic support and urinary/fecal incontinence, as well as urinary infections, after the procedure. There is a long-term risk of recurrent prolapse in up to 30% of women who have undergone reconstructive surgery if healthy lifestyle behaviors are not maintained. This includes but is not limited to smoking cessation, weight loss in the obese, reduction in heavy lifting, exercise, fall prevention, and bowel regularity. Reconstructive pelvic and/or urinary/fecal incontinence surgeries may only improve your condition/s mildly and may not completely resolve problems including but not limited to urinary tract infect ions and/or defecatory dysfunction. 17% of patients may still get a urinary tract infection and 40-60% of patients may still experience constipation postoperatively. 2. It may be hard to urinate for a few days or weeks. Sometimes, up to 40% of women cannot urinate efficiently after surgery due to swelling, anesthesia, or pain. Prolonged urinary retention may rarely occur after an incontinence or pelvic prolapse surgery and is more likely if retention predates surgery or includes factors that are not limited to neuropathy, diabetes mellitus, or prior pelvic surgery. The patient may need a catheter to drain the bladder for 1-2 weeks on average. Patients in Dr. Almonte's practice most often prefer a transurethral Powers. Other choices are a suprapubic catheter or intermittent self-catheterization. The patient has been given instructions on how to manage the type of catheter chosen, which will be reiterated postoperatively. Despite evidence indicating no need for antibiotics with a catheter, real world experience shows a 20-40% rate of UTI with a Powers catheter which depending on personal risk factors and extent of surgery, may require a prophylactic anti biotic afterwards. Antibiotics have risks of resistance, diarrhea and C. difficile infection. Suprapubic catheters carry a risk of urinoma, bowel injury, and bleeding and have a UTI risk of 15-20%. Intermittent self-catheterization carries an 11% risk of a UTI. In regards to labial or perineal reconstructive surgery: 1. You should expect some bruising and mild swelling with related discomfort following these surgeries that lasts 1-2 weeks. Ice packs and sitz baths may be utilized after surgery to help minimize swelling and discomfort. Mild analgesics are also used. Final optimal results can usually be appreciated in several months. Most patients may return to work or school within a week after surgery; however, strenuous activity or tight clothing is discouraged and patients must refrain from sexual intercourse for 4-6 weeks after surgery. 2. You may receive a topical antibiotic, which reduces risk of infection. Mild bleeding is not uncommon and can occur postoperatively if strenuous activity or intercourse is begun too early. Problemswith healing, such as incision separation, suture popping, scarring, and/or pain following the surgery are rare but can happen. 4 SPECIAL INSTRUCTIONS IF MRSA POSITIVE * Continue Bactroban to the nares 2x / day for 2 weeks post-operatively. Since many people are colonized in the community, it is not something we will routinely culture for post-operatively. TO PREVENT BLOOD CLOTS IN THE LEGS OR LUNGS / PNEUMONIA IN THE LUNGS * Regular walking or calf stretches and wearing a supportive hose may help prevent clots in the legs or lungs. * If interested, home pneumatic cuffs are available for purchase through the office if you wish to continue these at home. * Take home your incentive spirometer and utilize it as instructed to prevent pneumonia. * Smoking cessation before and after surgery is strongly encouraged. VAGINAL BLEEDING & DISCHARGE * You will likely experience light bleeding with the potential for small dime size clots, lasting 2-3 weeks after your surgery. This should not be construed as heavy bleeding. * You may notice an increase in vaginal discharge 4-6 weeks after your surgery, which may be watery, yellowish, or pinkish. It may have more of an acidic odor. This is common as the vagina flushes out edematous body fluid and dissolves the absorbable sutures. * As the healing process progresses, you may experience mild itching within the vagina, as well as outside the vaginal opening. If this itching become severe, and/or is accompanied by a foul smell and swelling, please call the office. DRAINS & WOUND CARE * If a drain or specific wound care appliance is present at the time of dismissal, please follow additional instructions that may be provided regarding maintenance of the device/s. * Basic daily maintenance of a drain is as follows: - You may wash around the drain site with warm, soapy water and pat dry with a towel. - If indicated, use a topical antibiotic around the drain site 2x / day. - Strip or milk the drain from the drain site to the bulb suction 3x / day. This clears any blockage from the drain. Simply pinch the drain at its insertion site into your body between your thumb and forefinger. Thensqueeze and pull the drainage tubing as you move towards the drain bulb, allowing the tube to slidebetween your fingers with mild resistance, you should see a suction effect within the drain tube that moves fluid toward the bulb. * Please call the office immediately if the drain falls out or cannot maintain suction. * Please call if redness of the drain site increases and is associated with fever, pain, or purulent discharge. CONSTIPATION * Patients are often constipated after a prolonged period of bed rest, or with the use of oral narcotic pain medications. If you have not had a bowel movement for 3 days after you are dismissed from the hospital, or are uncomfortable and unable to pass stool, please try one or all of the following measures in a stepwise manner: 1. Eat fruits, vegetables, prunes & whole-grain foods. Drink 8 glasses of fluid daily. Add PlumSmart juice. 2. Metamucil, FiberCon, or other bulking medication - use as directed 3. Milk of magnesia - 30 mL s by mouth every 12 hours 4. Dulcolax suppository - 1 suppository per rectum every 4-6 hours 5. Fleets enema use as directed unless told nothing per rectum (colorectal fistula repair) BLADDER DRAINAGE There is a >70% chance you will void on your own post-operatively. In particular to reconstructive and incontinence surgeries (whether you had incontinence before surgery or not), sometimes surgical effects of normal swelling and new positioning of the bladder may be associated with some mild tomoderate postoperative urinary leakage. Often this leakage is urge related. As discussed pre-operatively, up to 26% of patients with prolapse and negative urodynamic testing may develop de taylor incontinence afterwards. Please do not be frustrated if temporary incontinence occurs for it will most likely improve as you continue to heal. Leakage rarely persists long-term, there are many options for t reatment, and Dr. Almonte and his office staff are there to help you every step of the way. 5 [facility] The patient, (name), has been discharged from the hospital / surgery center on (date) from her operation. The patient has been given the appropriate postoperative instructions and they have been reviewed thoroughly with the patient and her family as necessary. The patient voices understanding and all questions have been answered to her and / or her family s satisfaction. Regarding her voiding ability at the time of discharge from the hospital: [ ] Patient was able to void on her own. (*RN to remove pages 7-16*) [ ] The patient was discharged with an indwelling Powers catheter and will do clamping trials at home. She will need a voiding trial at the office in 1 week. (*RN to include pages 7-10,15,16 & remove pages 11-14*) [ ] The patient was discharged with an indwelling Powers catheter and bladder rest. She will not undergo a voiding trial unless directed by Dr. Almonte at the first post-operative visit. (*RN to include pages 7-10,15,16 & remove pages 11-14*) [ ] Patient was taught intermittent self-catheterization. (*RN to include pages 7,8,11,15,16 & remove pages 9,10,12-14*) [ ] The patient was discharged with a suprapubic catheter. (*RN to include pages 7-10,12-16 & remove page 11*) RN Signature Date Patient or Family Member Signature Date FAX COMPLETED FORM TO: Suzi Almonte DO FAX: [phone] (Patient Sticker Here) 6 BLADDER DRAINAGE FOR THOSE PATIENTS REQUIRING A CATHETER Conversely, it may be hard for you to urinate for a few days or weeks. Sometimes, up to 30-40% of women cannot urinate efficiently after surgery due to swelling or anesthesia. This may last a few hours to a few weeks. You may be required to use a catheter in your bladder to help it drain and retrain it to work properly. One kind of catheter, called a Transurethral Powers Catheter, may be placed into the bladder through the urethra. This is usually reserved for large pelvic reconstructive surgeries and timely recovery. Some patients prefer to use a catheter intermittently to empty their bladder. This is called Intermittent Self-Catheterization (ISC). It is an easy technique to learn and helps to lessen the threat of urine infection. A third kind of catheter is called a Suprapubic Catheter (SPC). This catheter is placed through a small incision in the abdomen. A SPC is good for elderly patients or those whoare obese and may not be able to insert a catheter, or for complex bladder surgery requiring delayed recovery. Other tubes may help drain fluid from your incision/s. Unless instructed to maintain a catheter to drainage or to rest, you will begin plugging the end ofyour catheter with a small plastic plug in the hospital, and you will leave it plugged for set intervals of time. You will continue this upon dismissal. While your catheter is plugged, the urine willnot drain out of it, and your bladder will fill like it always has naturally. You will be sent home with a smaller day bag that straps to your leg for mobility plus a larger night bag to allow you torest all night without the need to drain the bag, and cleansing supplies. * If you have a Transurethral Powers Catheter, plugging of the catheter helps to wake up the bladderand increases capacity. By the time you come in for your 1st postoperative visit, 95% of patients will be ready to pass a voiding trial and have the catheter removed successfully. During daytime, tryplugging until you are comfortably full, then drain your bladder through the catheter. Your goal should be 2-4 hours of plugging between bladder emptying. You may put your catheter to drainage at night. * If you are performing Intermittent Self-Catheterization, you should attempt to urinate every houror so and then catheterize at the end of the time interval to measure how much urine is left in thebladder by emptying the catheter into the measuring hat. * If you have a Suprapubic Catheter, during the time that your catheter is plugged, you should attempt to urinate naturally every hour or so. At the end of the time interval, measure how much urine is left in the bladder by emptying the catheter into the measuring hat. 7 You will not begin progressing through the different intervals of the suprapubic plugging or catheterization routine until you are able to urinate normally through your urethra. Until this happens, you will repeat the 4 hour interval over and over. When you have started urinating normally, you willmeasure how much is left in your bladder at the end of each interval and make a decision about whether you may progress to the next time interval. Please see the respective catheterization routine pertinent to the type of catheter that you may have. Until the 12 hour interval is reached, the catheter should be hooked to the drainage bag every night to drain. After the 1st successful 24-hour interval, please call the office to update one of the nurses. Troubleshooting the Catheter It is not uncommon for the transurethral or suprapubic catheter to leak around the urethra or skin incision respectively as the bladder gets too full. If you have problems with this type of leaking, drain your bladder through the catheter. If leakage continues, reconnect your catheter to the Powers bag until the next morning, then restart the plugging routine. Please call the office with continuedleakage problems. Removing the Catheter The catheter is held in place inside your bladder by a water-filled balloon. Cutting the collar (next to the end of the part you ve been plugging) will cause the water inside the balloon to empty out, and the balloon will deflate. You may then remove the catheter by pulling on it gently. Things to Remember * You do not need to measure how much you urinate, ever. You need only to measure how much is left in your bladder (which gets drained from the catheter) at the end of each plugging interval. This isknown as the residual urine. You do not have to measure this residual every time you urinate normally; only at the end of the plugging interval. * You may find it easier to use the Powers bag at night to collect your urine. Doing this prevents you from having to get up in the night to drain your bladder. If you use the Powers bag, simply restart your most recent plugging interval when you wake up (for example, if you were at the 6 hour interval before bed, start at this interval routine in the morning.) * The site where a catheter is inserted into the urethra or abdomen may become pinkish, purplish, or develop a pus-like or crusty substance around it. These are your body s reactions to the catheter s presence, and are very normal. You may wash around the catheter daily with soap and water. Rinse and dry these areas well. You may shower while wearing the catheter. Maintain good personal hygiene. If this site develops a redness that spreads, or is warm and painful to the touch, please call the office immediately. * When changing from one bag to another, using a clean leg bag or Powers bag and an alcohol prep. Wash your hands thoroughly with soap and water and swab the end of the drainage tubing that will be attached to the Powers catheter. Disconnect the drainage bag from the Powers catheter and put the bag aside. Attach a clean bag to the catheter. Wash your hands thoroughly afterwards. * To clean the bags simply empty the urine from the bag and leave the spout open for cleaning. Mix a cup of vinegar and cup of cool water and flush the bag using a 50 mL syringe, or by submerging thebag under the mixture. Once the bag is filled, close the spout and allow the liquid to stay in the bag for 30 minutes. Drain the cleaning solution and rinse the bag again with tap water. Hang dry with the cap off and the spout open. A commercially prepared urinary appliance cesspool cleaner may also be usedas instructed. * It is important that when it is time to remove the catheter, do so in the morning, because you will need to urinate every 30-60 minutes on the day that you remove it. This is to keep the bladder empty and compressed, and to allow itself to heal. This is especially important for the suprapubic incision for those with suprapubic catheters. After removing the suprapubic catheter in particular, cover the site with a Band-Aid for the 1st 24-48 hours. * Drink at least 2 quarts of liquid a day. Avoid caffeinated drinks as they may irritate the bladder and cause bladder spasms. * Please remember to call the office once a week until the catheter is removed with an update on your progress. 8 HOW TO CARE FOR YOUR POWERS CATHETER FEMALE About this Topic: Powers catheter is a thin, flexible tube that drains urine from your bladder. The catheter connects to a special bag. The bag holds the urine until you are able to empty the bag. Youmay need to have a catheter for a short time. You may need a catheter after you are sick or have had surgery. Sometimes a catheter is used for a long time. What Will the Results Be: Your urine will drain and you will prevent infection. What Care is Needed at Home? ; Ask your doctor what you need to do when you go home. Make sure you ask questions if you do not understand what the doctor says. This way you will know what you need to do. ; Your doctor may order a home health nurse to come to your house to help you learn to care for your catheter. ; Prevent infections: ; Wash your hands before and after handling your catheter. ; If you switch between a leg bag and an overnight drainage bag, be sure you clean the connection between the catheter and the bag before you switch bags. Ask your doctor what to use to clean the connection. ; Place a cap on the drainage bag you are not using and store in a clean towel. ; Rinse the empty drainage bag not in use with 1 cup vinegar mixed with 1 cup water. ; Care for the tube: ; Wash the skin around the catheter with soap and water each day. Pat the skin dry. ; Do not put anything on the tube. ; Keep the tube secure. Do not let the tube pull or catch when you are moving around during the day. ; Do not let the tube kink or loop. ; Care for the Drainage Bag: ; Keep your urine bag below your bladder. ; Drain the bag often to help keep you from getting an infection. ; Wear cotton underwear. ; What Follow-Up Care Is Needed? Your doctor may ask you to make visits to the office to check on your progress. Be sure to keep these visits. ; ; ; ; 9 ; What Lifestyle Changes are Needed? ; Drink 6-8 glasses of water every day. ; Take showers rather than soaking in a bath. ; Will Physical Activity Be Limited? ; Talk to your doctor about what you can and cannot do when the catheter is in place. ; What Problems Could Happen? ; The catheter has a balloon to hold it inside the bladder. The balloon can break or leak and the catheter can fall out. ; Urine flow stops or is blocked by kinks or bends in the tube or if the drain bag is kept higher than your bladder. ; You may see blood in the collecting tube or bag. ; Bladder infection. ; When Do I Need To Call the Doctor? ; Signs of infection like a fever of 100.4F (38C) or higher, chills, pain around the catheter, redness or swelling of the skin around the catheter. ; Urine has blood and it is dark or coffee colored, or is pus-like. ; Tube comes out or urine stops flowing. ; Burning or painful feeling in your bladder. ; You are not feeling better in 2-3 days or you are feeling worse. ; Teach Back: Helping You Understand ; The Teach Back Method helps you understand the information we are giving you. The idea is simple.After talking with the staff, tell them in your own words what you were just told. This helps to make sure the staff has covered each thing clearly. It also helps to explain things that may have denae bit confusing. Before going home, make sure you are able to do these: ; I can tell you about my condition. ; I can tell you how to prevent infection and care for the tube and bag of my Powers catheter. ; I can tell you what I will do if my urine stops flowing or there is a burning or painful feeling in my bladder. 10 Intermittent Self-Catheterization (ISC) Instructions After your operation, you may experience swelling around the bladder and urethra. Swelling may limit the ability to pass urine naturally through your urethra. Intermittent Self-Catheterization (ISC) will allow you to pass your urine until this swelling subsides. This technique prevents discomfort from bladder over distention. By following the simple routine below, you will be able to use ISC to empty your bladder until yournatural ability to pass urine gradually returns. You will find that as your ability to pass urine naturally improves, the need for ISC will be less. On average, a woman should expect to have use ISC from 2 to 4 weeks. You may reuse catheters by cleaning them in hot soapy water if low on supplies. 1. Attempt to pass urine naturally as often as you like. At first, do not be surprised if you cannot pass urine in very small amounts. 2. Try to void naturally immediately before each self-catheterization. 3. During the day, self-catheterize every 3 - 4 hours to ensure bladder emptying. Use your non-dominant hand to gently spread your labia and wipe your urethra with a soap wipe. Use your dominant hand to introduce the catheter into the urethra until urine flow starts and then stops. 4. Measure the residual urine drained out of the catheter at the end of each interval. Use the measuring hat. If your catheterized amount is 400 ml or more, self- catheterize more often (every 2 -3 hours). 5. Start out with a self-catheterization schedule of every 3 - 4 hours if possible. This is equivalent to self-catheterizing 6 - 8 times per day. 6. When the amount catheterized is less than 150 ml on 2 occasions, increase your catheterization interval to every 6 hours, or 4 times per day. 7. When the amount catheterized is less than 150 ml on 2 occasions, increase your catheterization interval to every 8 hours, or 3 times per day. 8. When the amount catheterized is less than 150 ml on 2 occasions, increase your catheterization interval to every 12 hours, or 2 times per day. 9. When the amount catheterized is less than 150 ml on 2 occasions, increase your catheterization interval to every 24 hours, or 1 time per day. 10. Once the amount catheterized at the 24 hour interval is less than 150 ml on 1 occasion, self-catheterization may be stopped. SPECIAL INSTRUCTIONS * Call Dr. Almotne's office at [phone] on a weekly basis to report to Franny on your progress. * Call Dr. Almonte with the following problems: 1. Symptoms of a urinary infection (pain, burning, urgency, frequency, or blood). 2. Fever greater than 100.4 F on 2 occasions 4 hours apart. 3. The inability to pass urine through the catheter. 11 Suprapubic Catheter Instructions After your operation, you may experience swelling around the bladder and urethra. Swelling may limit your ability to pass urine naturally through your urethra. The suprapubic catheter (SPC) placed into your pubic hair area allows you to pass urine until swelling subsides. The SPC prevents discomfort from bladder over distention. The SPC site may be cleaned with soap and water. The SPC tucks discreetly into your underpants. By following the simple routine below, you will be able to use the SPC to empty your bladder until your natural ability to pass urine gradually returns. You will find that as your ability to pass urine naturally improves, the need to use your SPC will be less. On average, a woman should expect to have the SPC from 2 to 4 weeks. 1. Attempt to pass urine naturally as often as you like. At first, do not be surprised if you cannot pass urine in very small amounts. 2. Try to void naturally immediately before each unplugging of the SPC. 3. During the day, unplug your SPC every 3 - 4 hours to ensure bladder emptying. So you can sleep well at night, connect your SPC to the night bag. 4. Measure the residual amount drained out of the SPC at the end of each interval. Use the measuring hat. If your SPC amount is 400 cc or more, unplug more often (every 2 -3 hours). 5. Start out with an unplugging interval of every 3 - 4 hours if possible. This is equivalent to unplugging 6 - 8 times per day. 6. When the amount unplugged is less than 150 ml on 2 occasions, increase your unplugging interval to every 6 hours, or 4 times per day. 7. When the amount unplugged is less than 150 ml on 2 occasions, increase your unplugging interval to every 8 hours, or 3 times per day. At the 8 hour interval, you no longer need to connect your SPC to the night bag. 8. When the amount unplugged is less than 150 ml on 2 occasions, increase your unplugging interval to every 12 hours, or 2 times per day. 9. When the amount unplugged is less than 150 ml on 2 occasions, increase your unplugging interval to every 24 hours, or 1 time per day. 10. Once the amount unplugged at the 24 hour interval is less than 150 cc on 1 occasion, the SPC may then be removed. SPECIAL INSTRUCTIONS * Call Dr. Almonte's office at [phone] on a weekly basis to report on your progress or to arrange for removal of the SPC. * Call Dr. Almonte with the following problems: 1. Symptoms of a urinary infection (pain, burning, urgency, frequency, or blood). 2. Fever greater than 100.4 F on 2 occasions 4 hours apart. 3. The inability to pass urine through the SPC. 12 HOW TO CARE FOR YOUR SUPRAPUBIC URINARY CATHETER About this Topic: A suprapubic urinary catheter is a bendable rubber tube. It is put into an opening called a stoma. This is made in the lower belly wall that goes straight into the bladder. A bulb at the end of the tube sits against the bladder wall and keeps the tube from moving out of place. Thecatheter is used to drain urine from the bladder when the bladder is not working the right way or is blocked. This type of catheter may have less chance of infection. General: The skin near the stoma should be cleaned every day and checked for signs of infection. These include redness, swelling, pus, and soreness. Cleaning the Skin Near the Stoma: You may take showers, but check with your doctor about bathing, hot tubs, and swimming pools. Avoid using creams, powders or sprays near the tube site. ; Get the Things You Will Need: ; Gloves * Warm water and non-scented soap ; Clean, dry washcloth and towel * Clean gauze bandage ; Surgical tape * Plastic Trash Bag ; Wash your hands with soap and water. ; Put on clean gloves ; Hold the skin on all sides of the stoma. Gently take off the bandage. Be careful not to pull out the catheter. Throw the bandage away in the trash bag. ; Check for redness or swelling, colored or foul-smelling urine or drainage, or skin changes. Thesemay be signs of an infection. Call your doctor. ; Hold the end of the catheter tube while cleaning. ; Wash the base of the catheter and the skin near the stoma with warm soap and water. Wash away from the stoma, gently pat dry with a towel. ; Secure the catheter with a clean gauze bandage and tape. Changing the Catheter: ; Get the Things You Will Need: ; Drainage bag * Sterile gloves ; Syringe to remove water in the catheter balloon * Clean sterile gauze bandage ; Surgical tape * Plastic trash bag ; Wash your hands with soap and water before and after changing the catheter. ; Put on clean gloves. ; Take off the old bandage or dressing and throw in the trash bag. ; Clean the skin at the site. ; Remove and throw away your gloves. ; Open packages carefully before putting on sterile gloves so you do not infect yourself once gloved. Be careful not to contaminate the sterile items inside the packages, mainly the new catheter. It is very helpful to have someone help you. ; Put on sterile gloves and take care to keep things sterile at all times when working with the newcatheter. ; Fix the new catheter as you have been trained. ; Using the syringe, remove water from the old catheter bulb. ; Keep your fingers close to the site. Gently pull the catheter until it comes out. You can tell how far in the new catheter should go from the length of the catheter you took out. ; Clean the skin at the site again. 13 ; Make sure the drainage bag is attached to the new catheter. ; Gently put the new catheter in as far as the old one had been. ; Once urine begins to flow, inflate the bulb with about 8-10 mL water or the amount given on the package. If you have pain or feel resistance, withdraw the catheter a little and try again. If you cannot get the catheter in, cover the opening and call your caregiver right away. ; Secure the catheter with a new bandage. Tubing should be loose so it does not pull on the catheter. ; Throw away your gloves and any old catheter supplies. What Problems Could Happen? ; Infection * Bleeding ; Kidney damage * Bladder injury ; Bladder stones * Catheter gets displaced causing a leak or blockage When Do I Need to Call the Doctor? ; Signs of infection these include a fever of 100.4F (38C) or higher, chills, stomach pain. ; Signs of wound infection these include swelling, redness, warmth around the catheter site, too much pain when touched, yellowish/greenish or bloody discharge, foul smell coming from the site. ; Cloudy or foul smelling urine. ; Blood in urine. ; Stones or sediment in the tubing or drainage bag. ; Soreness near the tube. ; Very bad bladder pain or spasms. ; Urine leaking around the tube. ; No urine flowing into the bag; this could be a sign that the tube is clogged. ; Tubing comes out. Helpful Tips: ; To lower your chance if infection or other problems: ; Always wash your hands before and after you care for your catheter. ; Check your catheter often to be sure it is in the right position and secure to avoid leakage at the stoma. ; Keep the urine drain bag below the level of your bladder. ; Make sure to keep the tubing free of kinks so the urine flows freely. ; Avoid wearing tight-fitting clothing over the tubing that could block the flow of urine. ; Do not re-use single use drainage bags. ; Drink lots of liquids each day; avoid caffeine drinks and beer, wine, and mixed drinks (alcohol) which may bother the bladder. ; Eat lots of fiber each day to avoid hard stools. This will help to avoid a blockage and bladder pressure. 14 RECORD FOR VOIDED AND POSTVOID AMOUNTS Please record the time you void, the amount voided, and the amount left in your bladder after you empty it with your catheter. Date/Time Voided Amount Post Void Residual Amount Date/Time Voided Amount Post Void Residual Amount 15 [facility] SUPPLY LIST Please contact your local pharmacy or medical supply store regarding supplies for the type of catheter you may have. Transurethral Powers catheter 1 Night bag and 1 Day bag with leg strap Lubricating jelly Alcohol wipes Measuring had for toilet seat 5 50 mL syringes Self-Intermittent Catheterization Supplies: 100 #11-Bol[place] female catheters (hydrophilic if possible) Lubricating jelly Alcohol wipes Measuring hat for toilet seat Hand-held mirror Suprapubic catheter kit 1 Roll Transpire tape 1 inch 10 yards 1. Box of 25 drain dressings, precut, 6 pi 4 x 4 1 package catheter plugs 1. 2000 mL urinary drainage bag 1 day bag with leg strap 1 60 mL syringe catheter tip 1 Quart vinegar You may obtain the above supplies from the Pharmacy Counter at their 3 locations. [facility] [address] [address] [place] [address] [place] [address] Store hours: Saturday through Saturday 9 AM to 6 PM Saturday 9 AM to 1 PM Saturday closed 16 documented in this encounter History of Present Illness * Mackenzie Pinon RN - 07/06/2020 2:44 PM EST Indwelling powers cath care and edu discussed with pt. Supplies sent home. Questions answered. [facility]. Resident aware. * Donovan Gonzalez - 07/06/2020 11:15 AM EST CLINICAL PHARMACY NOTE: MEDS TO BEDS [facility] Select Patient?: No Total # of Prescriptions Filled: 6 The following medications were delivered to the patient: norco 5-325 pericolace Ondansetron ODT 4mg Ibuprofen 600 Cephalexin 500mg Loperamide 2mg Total # of Interventions Completed: 0 Time Spent (min): 0 Additional Documentation: * Mackenzie Pinon RN - 07/06/2020 10:40 AM EST Discharge inst discussed w/ pt an mother. Question answered. Scripts per pharmacy * Cristy Crump RN - 06/29/2020 10:27 AM EST DAY OF SURGERY/PROCEDURE GUIDELINES As a patient at the [facility] you can expect quality medical and nursing carethat is centered on your individual needs. It is our goal to make your surgical experience as comfortable and excellent as possible. The following instructions are general guidelines, if any information on this sheet is different from what your doctor has instructed you to do, please follow your doctor's instructions. Please arrive on time or your procedure may be rescheduled. Enter through front entrance C of the building. Upon arrival you will be taken to the pre-operative area to get ready for surgery You will be given a specific time when you will NOT be able to eat, drink, smoke, suck or chew ANYTHING (no water, gum, mints, cigarettes, cigars, pipes, snuff, chewing tobacco, etc.) or your surgerymay be canceled. This will occur during your PAT appointment or by phone 1-2 days before surgery Take a shower or bath on the morning of your surgery/procedure (Hibiclens if directed) [place] your teeth, but do not swallow any water IN CASE OF ILLNESS - If you have a cold or flu symptoms (high fever, runny nose, sore throat, cough, etc.) rash, nausea, vomiting, loose stools, and/or recent contact with someone who has a contagious disease (chick pox, measles, etc.) please call your doctor before coming to the surgery center Take a small sip of water with heart, blood pressure, and/or seizure medication the morning of surgery. (DO NOT take blood pressure medications that contain a diuretic) If applicable bring your: Inhaler (s) Hearing aid(s) Eyeglasses and Case (If you wear contacts they have to be removed before surgery, bring case and solution) Any paperwork given to you by your doctor Any X-rays you were told to bring A copy of your Living Will or Durable Power of [employer] DO NOT take anticoagulants (blood thinners, aspiring or aspirin-containing products) two weeks prior to your surgery. DO NOT take any diabetic pills or insulin. Please bring your sliding scale instructions and sick day plan with you. If you have a low blood sugar reaction after midnight, drink 4 ounces of apple juice or regular pop. Wear loose, comfortable clothing that is easy to put on and take off. You will be returning home the same day as your surgery, you will need to have a responsible adult (18 years of age or older) present to drive you home. You will need someone to stay with you at homefor the first 24 hours following your surgery. This is due to the anesthesia and the medications given to you during surgery and recovery. Your doctor may talk with your family immediately following your procedure. Depending on your needs, you will stay in the recovery room between 30 minutes to 2 hours. While you are recovering, the surgery family waiting room entry level receptionist can answer many of your family's questions. All medically related questions will be answered by a medical professional. If you had outpatient surgery, you will meet your family for discharge instructions before leaving. documented in this encounter Assessments Diagnosis Postoperative state- Primary Other postprocedural status Summary Purpose Family History No Family History Records FoundNo Family History Records Found No data available for this section No Family History Records FoundNo Family History Records Found Advance Directives No Advanced Directives Records FoundNo Advanced Directives Records FoundNo Advanced Directives Records FoundNo Advanced Directives Records Found Additional Source Comments Reason for Visit (unrecogniz ed section and content) Status Reason Specialty Diagnoses / Procedures Re ferred By Contact Referred To Contact Diagnoses Fourth degree perineal tear during delivery with problem PERINEAL 4* TEAR CHILDBIRTH Procedures SD OFFICE/OUTPT VISIT,PROCEDURE ONLY SD REPAIR OF PERINEUM,NON OBSTETRICAL SD REPAIR OF ANAL SPHINCTER,ADULT PERINEAL REVISION WITH [place] [id number] [address] [facility] Ordered Prescriptions (unrec ognized section and content) Prescription Sig Dispensed Refills Start Date End Da te ondansetron (ZOFRAN ODT) 4 MG disintegrating tablet Take 1 tablet by mouth every 8 hours as needed for Nausea or Vomiting 15 tablet 0 07/06/2020 loperamide (IMODIUM) 2 MG capsule Take 1 capsule by mouth 4 times daily for 5 days 20 capsule 0 07/06/2020 07/11/2020 senna-docusate (PERICOLACE) 8.6-50 MG per tablet Take 2 tablets by mouth daily as needed for Constipation Start taking 5 days after surgery. 60 tablet 1 07/06/2020 HYDROcodone-acetaminop hen (NORCO) 5-325 MG per tabletIndications:Post operative state Take 1 tablet by mouth every 6 hours as needed for Pain for up to 7 days. Intended supply: 3 days. Take lowest dose possible to manage pain 24 tablet 0 07/06/2020 07/13/2020 ibuprofen (ADVIL;MOTRIN) 600 MG tablet Take 1 tablet by mouth every 6 hours as needed for Pain 60 tablet 1 07/06/2020 cephALEXin (KEFLEX) 500 MG capsule Take 1 capsule by mouth 3 times daily for 7 days 21 capsule 0 07/06/2020 07/13/2020 INFORMATION SOURCE (unrecogn ized section and content) DATE CREATED AUTHOR 07/12/2020 [facility] DATE CREATED AUTHOR AUTHOR'S ORGANIZ ATION 02/25/2022 Berny Fitzgerald [facility] DATE CREATED AUTHOR AUTHOR'S ORGANIZ ATION 08/21/2023 [facility] DATE CREATED AUTHOR AUTHOR'S ORGANIZ ATION 11/16/2023 [facility] FOR RECORDS PERTAINING TO PATIENTS WHO ARE OR HAVE BEEN ENROLLED IN A CHEMICAL DEPENDENCY/SUBSTANCEABUSE PROGRAM, SOME INFORMATION MAY BE OMITTED. This clinical summary was aggregated from multiple sources. Caution should be exercised in using it in the provision of clinical care. This summary normalizes information from multiple sources, and as a consequence, information in this document may materially change the coding, format and clinical context of patient data. In addition, data may be omitted in some cases. CLINICAL DECISIONS SHOULD BE BASED ON THE PRIMARY CLINICAL RECORDS. [facility]. provides no warranty or guarantee of the accuracy or completeness of information in this document.
[2023-12-13 11:58] LABS: Basophils Percent Auto 0.3 % (0.2-2.0); Eosinophils Absolute Auto 0.1 10^3/uL (0.0-0.7); Eosinophils Percent Auto 1.3 % (0.9-7.0); Hematocrit 37.6 % (36.0-48.0); Hemoglobin 12.6 g/dL (12.0-16.0); Immature Granulocytes Abs Auto 0.03 10^3/uL (0.00-0.03); Immature Granulocytes Pct Auto 0.4 % (0.0-0.5); Lymphocytes Absolute Auto 1.1 10^3/uL (1.2-3.8); Lymphocytes Percent Auto 14.5 % (20.5-60.0); Mean Corpuscular HGB Conc 33.5 g/dL (29.9-35.2); Mean Corpuscular Hemoglobin 32.1 pg (26.7-34.0); Mean Corpuscular Volume 95.7 fL (81.0-99.0); Mean Platelet Volume 11.9 fL (9.5-13.5); Monocytes Absolute Auto 0.4 10^3/uL (0.3-0.8); Monocytes Percent Auto 5.7 % (1.7-12.0); Neutrophils Percent Auto 77.8 % (43.0-75.0); Platelet Count 167 10^3/uL (150-450); Red Blood Count 3.93 10^6/uL (4.20-5.40); Red Cell Distribution Width 13.1 % (11.0-15.0); White Blood Count 7.7 10^3/uL (4.0-11.0)
[2023-12-13 12:31] LABS: Glucose 1 Hour 118 mg/dL (<130)
== END 2023-12-13 10:32 | disposition home or self-care (01) ==
LOC: LAB 10:32
PROVIDERS: Visit Provider Obstetrics & Gynecology
DX: Z13.1 Encounter for screening for diabetes mellitus (principal)
CPT/HCPCS: 36415; 82950; 85025

== ENCOUNTER 2024-01-16 10:15 | Outpatient (OUT) | payer OTHER, SELFPAY ==
--- NOTE | 2024-01-16 10:18 | US_ITS ---
[address] [address] Patient Name: IZABEL VILLALOBOS MRN: [id number] date: 1995 Sex: F Assigned Patient Location: [facility] Current Patient Location: [facility] Accession/Order Number: [id number] Exam Date: 01/16/2024 10:18 Report Date: 01/16/2024 13:39 At the request of: ALEX HEATH Procedure: US OB growth EXAMINATION: US OB growth HISTORY: INCONSISTENT SIZE COMPARISON: Ultrasound OB anatomy 11/07/2023 FINDINGS: Heart Rate: 135 bpm Amniotic Fluid Volume: 9.9 cm; normal range. Number: 1 Position: CEPHALIC BIOMETRY: BPD: 7.55 cm; 30 weeks 2 days; 19.10 % HC: 28.30 cm; 31 weeks 0 days; 16.10 % AC: 26.27 cm; 30 weeks 3 days; 28.80 % FL: 5.88 cm; 30 weeks 5 days; 27.50 % EFW: 1540.69 g; 23.90 % FL/AC: 22.38 FL/BPD: 77.88 HC/AC: 1.08 GESTATIONAL AGE: Age by EDC: 31 weeks 0 days WILLIAM by EDC: 2024-03-19 Age by US: 30 weeks 4 days WILLIAM by US: 2024-03-22 US/US OB growth IMPRESSION: 1. Single live intrauterine with growth detailed above. Electronically authenticated by: NARENDRA MISTRY Date: 01/16/2024 13:39
--- OUTSIDE RECORDS SUMMARY | 2024-01-16 10:28 | XMS_ITS | CCD ---
Author Organization [facility] Inform ion Partnership [facility] Care Team Providers Care Leather Patcher Name Role Phone Unavailable Primary Care Provider UnavailSUZI [place] Admitting Unavailable SUZI ALMONTE Attending Unavailable BHARAT, DR EVANS Attending Unavailable BHARAT, DR EVANS Consulting Unavailable BHARAT, DR EVNAS Admitting Unavailable MISC, DR MADRID Primary Care Unavailable NONE, XXXX Primary Care Physician Unavailab Cheryl Moraes Unavailable Unavailable Aidan Melton Attending Unavailable ALEX HUFFMAN Attending Unavailable CESAR ASIF Attending Unavailable ALEX HUFFMAN Attending Unavailable ALEX HUFFMAN Attending Unavailable ALEX HUFFMAN Attending Unavailable Medications Current Medications Medication Drug [...] day(s), # 14 tab(s), Refills(s) 0, Pharmacy: [facility], 165, cm, 08/20/23 14:01:00 EDT, [...] mg docusate sodium 50 mg / sennosides, alf 8.6 mg oral tablet (1 source) Start: [...] Start: 07-06-2020 meperidine (DEMEROL) [facility] Start: 03-29-2014 Misc Medication [...] Visit Summaryon 0 08-20-2023 Ambulatory Visit Summary IZABEL VILLALOBOS :1995 Visit Date:08/20/2023 Ambulatory Visit Instructions Your [...] otitis media Duration: 7 Days Pickup at [facility] 1985 Unchanged duloxetine (duloxetine 60 mg Cap-DR) 60 Milligram By Mouth Every day Contact prescribing physician if questions or concerns Unchanged Non-Formulary Medication (Misc Medication) Control Pills daily Contact prescribing physician if questions or concerns Pharmacy Information [facility]: [address] [place] [id number] [phone] Medications and Immunizations Administered Not Given influenza virus vaccine, inactivated, Patient Refuses SARS-CoV-2 mRNA (toveronameran 5y-11y) vac, Postpone due to refusal Allergies [...] Follow these instructions at home: ? Take pfpi-noi-whwfbll and prescription medicines only as told by [...] by yo (more content not included)... [facility]/Cheloi c Bandar 08-20-2023 Family Medicine Office/Clinic Note Chief Complaint right ear pain HPI Staff 27 year old female presents with right ear pain, popping ,congestion, muffled hearing, feels like liquid in ear. No drainage. symptoms began two days ago. History of Present Illness Reviewed and agree with above documented HPI by medical records assistant. Patient is a 27-year-old female who complains [...] day(s), # 14 tab(s), Refills(s) 0, Pharmacy: [facility], 165, cm, 08/20/23 14:01:00 EDT, Height/Length Dosing, 70.4, kg, 08/20/23 14:01:00 EDT, Weight Dosing Portions of this record may have been created with voice recognition artificial intelligence software, specifically [employer], [employer] and or [employer]. Occasional wrong-word or `sfdlf-d-tsmx? substitutions may have occurred due to the inherent limitations of voice recognition and artificial intelligence software. Follow-up No qualifying data available Patient Education Otitis Media, Adult, Oros-ul-Uqmf Problem List/Past Medical History Ongoing Cigarette smoker [...] - Not Given Patient Refuses SARS-CoV-2 mRNA (toalenan 5y-11y) vac - Not Given Postpone due to refusal [facility] Comment on above: Result Comment: Elec tronically Signed By: Linh KWON, Aidan K\.br\Date and Time Signed: 08/20/23 14:33 EDT Patient Educationon 08-20-19 Patient Education ENT Otitis Media, Adult Otitis [...] Follow these instructions at home: ? Take ituh-jjd-bkchiji and prescription medicines only as told by [...] provider. Document Revised: 08/21/2021 Document Reviewed: 08/21/2021 [employer] Patient Education ? 2022 [employer] [facility] PAP ACOG PANEL 2: 21 to 29on 02-22-2022 . . Normal [facility] Comment on above: Performed By: #### [id number] #### [facility] [address] [place] [address] Dr. Jj Norman Age Gdln ACOG Testing - Normal [facility] Comment on above: Performed By: #### [id number] #### [facility] [address] [address] [address] Jj Norman DIAGNOSIS: Comment [facility] Comment on above: Result Comment: NEGA TIVE FOR INTRAEPITHELIAL LESION OR MALIGNANCY. Performed By: #### [id number] #### [facility] [address] [address] [address] Jj Norman Methodology: Comment [facility] Comment on above: Result Comment: This liquid based ThinPrep(R) pap test was screened with the use of an image guided system. Performed By: #### [id number] #### [facility] [address] [place] [address] Dr. Jj Norman Note: Comment [facility] Comment on above: Result Comment: The Pap smear is a screening test designed to aid in the detection of premalignant and malignant conditions of the uterine cervix. It is not a diagnostic procedure and should not be used as the sole means of detecting cervical cancer. Both false-positive and false-negative reports do occur. . Performed By: #### [id number] #### [facility] [address] [place] [address] Dr. Jj Norman Performed by: Comment Normal [facility] Comment on above: Result Comment: Ashlyn Prado, Manager House (ASCP) Performed By: #### [id number] #### [facility] [address] [place] [address] Dr. Jj Norman Reflex Criteria: Comment Normal [facility] Comment on above: Result Comment: The HPV DNA reflex criteria were not met with this specimen result therefore, no HPV testing was performed. . Performed By: #### [id number] #### [facility] [address] [place] [address] Dr. Jj Norman Specimen adequacy: Comment [facility] Comment on above: Result Comment: Sati sfactory for evaluation. Endocervical and/or squamous metaplastic cells (endocervical component) are present. Performed By: #### 4 [id number] #### [facility] [address] [place] [address] Dr. Jj Norman OPERATIVE REPORTon 1 OPERATIVE REPORT [address] [id number] OPERATIVE REPORT PATIENT NAME: IZABEL ARCE : 1995 MED REC NO: [id number] ROOM: ACCOUNT NO: [id number] ADMIT DATE: 07/06/2020 PROVIDER: Suzi Almonte DATE [...] external anal sphincteroplasty. SURGEON: Suzi Almonte DO TOOL ROOM ATTENDANT: Dagmar Womack DO ANESTHESIA: General endotracheal. FINDINGS: [...] top of the left portion using a yirine-rn-tiglk, doubly placed, 1-0 Vicryl suture in four [...] arc due to the surgery. SUZI ALMONTE [id number] Doc#: [id number] CC: Suzi Huffman [facility] POCT urine pregnancyon 07-06 Beta HCG ( test) Ql (U) Negative NEGATIVE [facility], [place] Comment on above: Specimens with hCG l evels near the threshold of the test (25 mIU/mL) may give a negative or indeterminate result. In such cases, another test should be performed with a new specimen in 48-72 hours. If early is suspected clinically in this setting, correlation with quantitative serum b-hCG level is suggested. TESTING PERFORMED AT [facility] [address] [place] [address] Vital Signs Date Time Vital Sign Value Performing Clinician Facility 08-20-2023 13:59-0400 Blood Pressure Location [facility] 08-20-2023 13:59-0400 Body temperature 97.7 [degF] [facility] 08-20-2023 13:59-0400 Diastolic blood pressure 68 mm[Hg] [facility] 08-20-2023 13:59-0400 Heart rate 83 /min [facility] 08-20-2023 13:59-0400 SaO2% (BldA) [Mass fraction] 99 % [facility] 08-20-2023 13:59-0400 Systolic blood pressure 118 mm[Hg] [facility] 07-06-2020 10:45-0500 BP Diastolic 82 mm[Hg] [place] 07-06-2020 10:45-0500 BP Systolic 121 mm[Hg] [place], [place] 07-06-2020 10:45-0500 Pulse (Heart Rate) 89 /min [place], [place] 07-06-2020 10:45-0500 Pulse Oximetry 100 % [place] 07-06-2020 10:15-0500 Body Temperature 97.59 [degF] [place] 07-06-2020 07:47-0500 BMI (Body Mass Index) 24 kg/m2 [place], [place] 07-06-2020 07:47-0500 Body weight 65.43 kg [place] 07-06-2020 07:47-0500 Respiratory Rate 18 /min [place] 06-29-2020 10:13-0500 Height 165.1 cm Suzi Croak [facility] [place] [facility] [place] Encounters Encounter Date Encounter Type Care Provider Facility Start: 01-01-2024 End: 01-01-2024 ambulatory ALEX KUMAR Not Available Start: 12-12-2023 End: 12-12-2023 ambulatory ALEX KUMAR Not Available Start: 11-14-2023 End: 11-14-2023 ambulatory ALEX KUMAR Not Available Start: 10-10-2023 End: 10-10-2023 ambulatory CESAR ASIF Not Available Start: 09-12-2023 End: 09-12-2023 ambulatory ALEX KUMAR Not Available Start: 08-20-2023 End: 08-21-2023 ambulatory Aidan Melton Facility:[facility] Start: 08-20-2023 End: 08-20-2023 Patient encounter procedure Aidan Melton [facility] Start: 08-15-2023 End: 08-15-2023 ambulatory ALEX KUMAR Not Available Start: 02-14-2022 End: 02-14-[address] NATHAN NICHOLSON Facility:[facility] Start: 07-06-2020 End: 07-06-2020 Patient encounter procedure SUZI ALMONTE [facility] Start: 07-06-2020 End: 07-06-2020 Subsequent hospital visit by physician Suzi Almonte Work Phone: [facility] [place] Comment on above: Postoperative state (Primary Dx) Procedures Date Procedure Procedure Detail Performing Clinician Start: 07-06-2020 Urine test visual color cmprsn meths Suzi Almonte Work Phone: Start: 05-22-2013 left inguinal hernia repair Aidan Melton Plan of Treatment Date Care Activity Detail Author Start: 01-26-2020 Influenza vaccination Flu vaccine (# 1) [facility] JANET End: 07-06-2020 Blood glucose - POCT Blood glucose - POCT Point of Care Testing Routine One Time for 1 Occurrences starting 07/06/2020 until 07/06/2020 [facility]ANET Comment on above: One Time for 1 Occur rences starting 07/06/2020 until 07/06/2020 Oxygen therapy [[facility] Data Set] Initiate Oxygen Therapy Protocol Respiratory Care Routine Daily until discontinued starting 07/06/2020 [facility] JANET Comment on above: Daily until disconti nued starting 07/06/2020 Phase I & II - meter ed glucose Phase I & II - metered glucose Point of Care Testing Routine As Needed until discontinued starting 07/06/2020 [facility] [place] Comment on above: As Needed until disc ontinued starting 07/06/2020 End: 07-06-2020 , urine POCT , urine POCT Point of Care Testing Routine One Time for 1 Occurrences starting 07/06/2020 until 07/06/2020 [facility] JANET Comment on above: One Time for 1 Occur rences starting 07/06/2020 until 07/06/2020 Immunizations Immunization Date Immunization Notes Care Provider Fa cility NEGATED: Highlighted row has not occurred!08-20-2023 influenza virus vaccine, unspecified formulation [facility] NEGATED: Highlighted row has not occurred!08-20-2023 SARS-CoV-2 mRNA (tozinameran 5y-11y) vaccine [facility] Payers Date Payer Category Payer Unknown [id number] 2.16.8 [id number] 1995 Unknown [id number] 2.16.84 [id number] 1995 Unknown [id number] 2.16.8 [id number] 1995 Unknown [id number] 2.16.84 [id number] 1995 Unknown [id number] 2.16.84 [id number] 1995 Unknown [id number] 2.16.84 [id number] 1995 Unknown [id number] 2.16.84 [id number] 1995 Unknown [id number] 2.16.84 [id number] 1995 Unknown [id number] 2.16.84 [id number] 1959 Private Health Insurance [id number] Social History Date Type Detail Facility Start: 07-06-2020 End: 08-20-2023 Tobacco smoking status NHIS Former smoker [facility] Start: 07-06-2020 Tobacco use and exposure Never used [place] Start: 07-06-2020 Alcohol intake Ex-drinker (finding) [place] Start: 06-29-2020 Tobacco Comment Jun 2019 [place], [place] Sex Assigned At Not on file [place] Exposure to SARS-CoV -2 (event) Not sure [place] Tobacco smoking status Never [facility] Sex Assigned At Female [facility] Functional Status Date Assessment Result Facility 08-20-2023 Functional Status N/A [facility] Hospital Discharge instructions 08-20-2023 Note Date & Type Note Facility 08-20-2023 Hospital Discharg e instructions Patient Education 08/20/2023 14:33:02 Otitis Media, Adult, Hvba-vo-Asvz Otitis Media, Adult Otitis media is a [...] pain. Follow these instructions at home: Take lpqm-ppt-leemire and prescription medicines only as told by [...] provider. Document Revised: 08/21/2021 Document Reviewed: 08/21/2021 [employer] Patient Education 2022 Project Manager. [facility] Evaluation + Plan note Note Date & Type Note Facility Evaluation + Plan note No data available for this section [facility] Progress note Note Date & Type Note Facility Progress note No data available for this section [facility] Discharge Instructions * Instructions* Mackenzie Pinon, DOUGLAS - 07/06/2020 Learning About Urinary Catheter Care [...] Where can you learn more? Go to [email or web address] and sign in to your Vilynx account. Enter U010 in the Search Health Information box to learn more about Learning About Urinary Catheter Care to PreventInfection. If you do not have an account, please click on the Sign Up Now link. Current as of: November 23, 2019 Content Version: 12.6 [employer]. Care instructions adapted under license by [email or web address]. If you have questions about a medical condition or this instruction, always ask your healthcare professional. [employer] disclaims any warranty or liability for your [...] dishwashing) Special Considerations) -Short local travel (restaurant, nondenominational) -Long distance travel > 1.5 hours (*See [...] office with any questions or concerns at [phone]. * If during office hours, your issue may require an appointment. If after hours, the answering service will connect you with the physician [employer]. * If you are concerned that your issue may be emergent, PLEASE CALL FIRST. ; Many issues may be resolved over the phone and avoid an unnecessary and expensive ER visit. ; If you truly have an emergency related to the surgery and call first: *You will be directed to the hospital ER in which you had your surgery. [facility] primarily or [facility] rarely. [facility] patients may be asked to report to [facility] if Dr. Almonte s on-call partner is assuming responsibility. ; Calling first helps to expedite your care and avoids an unnecessary and expensive ambulance transfer to [facility]. Dial 911 or go to your closest ER if your emergency is related to a potential heart attack or stroke. 2 DISCHARGE MEDICINES * [place] 325/5mg tablets or alternative narcotic. Take 1-2 tablets by mouth every 4-6 hours as needed for pain. - Per [place] Board of Pharmacy laws, only 1 week of narcotics may be prescribed at a time. - Do not take extra Tylenol (Acetaminophen) orally as [place] already contains the medicine. - May take 500mg orally every 4-6 hours if off of [place]. * Ibuprofen 400-800mg is safe to take. [...] short term in order to heal successfully exterminator termite. Once you have fully recovered, you may focus on enjoying your life. Keep in mind, you will continue to heal for 6-12 months after surgery, so use common sense to protect your surgery (avoid repetitive heavy lifting, constipation, chronic pelvic strain.) In particular, if you had a hysterectomy, you may have both physical and emotional effects that maybe brief or exterminator termite. After hysterectomy, periods will stop and a [...] blood clots in the legs or lungs, [place], or stroke. 4. Elderly patients over the [...] you every step of the way. [facility] The [...] Signature Date FAX COMPLETED FORM TO: Suzi Almonte, FAX: [phone] (Patient Sticker Here) 6 BLADDER DRAINAGE FOR [...] spout open. A commercially prepared urinary appliance creel cleaner may also be usedas instructed. * [...] be stopped. SPECIAL INSTRUCTIONS * Call Dr. Almonte's office at [phone] on a weekly basis to report to [...] INSTRUCTIONS * Call Dr. Almonte's office at [phone] on a weekly basis to report on [...] Voided Amount Post Void Residual Amount 15 [facility] HOME SUPPLY LIST Please contact your local pharmacy or medical supply store regarding supplies for the type of catheter you may have. Transurethral Powers catheter 1 Night bag and 1 Day bag with leg strap Lubricating jelly Alcohol wipes Measuring had for toilet seat 5 50 mL syringes Self-Intermittent Catheterization Supplies: 100 #11-Cymraes female catheters (hydrophilic if possible) Lubricating jelly [...] the Pharmacy Counter at their 3 locations. [facility] [address] [address] [place] [address] [place] [address] Store hours: Saturday through Saturday 9 AM to 6 PM Saturday 9 AM to 1 PM Saturday closed 16 documented in this encounter History of Present Illness * Mackenzie Pinon RN - 07/06/2020 2:44 PM EST Indwelling powers cath care and edu discussed with pt. Supplies sent home. Questions answered. [facility]. Resident aware. * Donovan Gonzalez - 07/06/2020 11:15 AM EST CLINICAL PHARMACY NOTE: MEDS TO [facility] Patient?: No Total # of Prescriptions [...] SURGERY/PROCEDURE GUIDELINES As a patient at the [facility] you can expect quality medical and nursing [...] morning of your surgery/procedure (Hibiclens if directed) [place] your teeth, but do not swallow any [...] your Living Will or Durable Power of Cash Control Specialist DO NOT take anticoagulants (blood thinners, aspiring [...] are recovering, the surgery family waiting room retail center receptionist can answer many of your family's [...] with problem PERINEAL 4* TEAR CHILDBIRTH Procedures [place] OFFICE/OUTPT VISIT,PROCEDURE ONLY [place] REPAIR OF PERINEUM,NON OBSTETRICAL [place] REPAIR OF ANAL SPHINCTER,ADULT PERINEAL REVISION WITH [place] [address] [place] [address] [facility] Ordered Prescriptions (unrec ognized section and content) [...] section and content) DATE CREATED AUTHOR 07/12/2020 [facility] DATE CREATED AUTHOR AUTHOR'S ORGANIZ ATION 02/25/2022 [facility] DATE CREATED AUTHOR AUTHOR'S ORGANIZ ATION 08/21/2023 [facility] DATE CREATED AUTHOR AUTHOR'S ORGANIZ ATION 01/03/2024 [facility] Specialists [facility] FOR RECORDS PERTAINING TO PATIENTS WHO ARE [...] BE BASED ON THE PRIMARY CLINICAL RECORDS. [facility] [employer] [facility]. provides no warranty or guarantee of the accuracy or completeness of information in this document.
== END 2024-01-16 10:16 | disposition home or self-care (01) ==
LOC: NOMS 10:15
PROVIDERS: Visit Provider Obstetrics & Gynecology
DX: O26.849 Uterine size-date discrepancy, unspecified trimester (principal); Z3A.30 30 weeks gestation of pregnancy
CPT/HCPCS: 76816

== ENCOUNTER 2024-02-20 19:12 | Outpatient (REF) | payer OTHER, SELFPAY ==
--- OUTSIDE RECORDS SUMMARY | 2024-02-20 19:15 | XMS_ITS | CCD ---
Author Organization [facility] Care Team Providers Care Cupola Worker Name Role Phone Unavailable Primary Care Provider UnavailSUZI [place] Admitting Unavailable SUZI ALMONTE Attending Unavailable BHARAT, DR EVANS Attending Unavailable KARJENK, DR EVANS Consulting Unavailable BHARAT, DR EVANS Admitting Unavailable MISC, DR MADRID Primary Care Unavailable NONE, XXXX Primary Care Physician Unavailab Cheryl Moraes Unavailable Unavailable Aidan Melton Attending Unavailable ARMIDA, ALEX Attending Unavailable CESAR ASIF Attending Unavailable ARMIDA, ALEX Attending Unavailable ARMIDA, ALEX Attending Unavailable ARMIDA, ALEX Attending Unavailable ARMIDA, ALEX Attending Unavailable CESAR ASIF Attending Unavailable ARMIDA, ALEX Attending Unavailable Medications Current Medications Medication Drug [...] day(s), # 14 tab(s), Refills(s) 0, Pharmacy: [facility], 165, cm, 08/20/23 14:01:00 [...] mg docusate sodium 50 mg / sennosides, correction 8.6 mg oral tablet (1 source) Start: [...] Your Care Team Attending Physician - Linh AYOUB-JORGE ALBERTOAidan Primary Care Physician - NONE, XXXX This [...] otitis media Duration: 7 Days Pickup at [facility] 1985 Unchanged duloxetine (duloxetine 60 mg Cap-DR) 60 Milligram By Mouth Every day Contact prescribing physician if questions or concerns Unchanged Non-Formulary Medication (Misc Medication) Control Pills daily Contact prescribing physician if questions or concerns Pharmacy Information [facility] 1986: [address] [place], [place] [id number] [phone] Medications and Immunizations Administered Not Given influenza [...] Follow these instructions at home: ? Take vtsq-mvj-pxsoqsu and prescription medicines only as told by [...] yo (more content not included)... Normal [facility] Medicine Office/Clini c Noteon 08-20-2023 Family Medicine Office/Clinic Note Chief Complaint right ear pain HPI Staff 27 year old female presents with right ear pain, popping ,congestion, muffled hearing, feels like liquid in ear. No drainage. symptoms began two days ago. History of Present Illness Reviewed and agree with above documented HPI by registered medical assistant. Patient is a 27-year-old female who [...] day(s), # 14 tab(s), Refills(s) 0, Pharmacy: [facility], 165, cm, 08/20/23 14:01:00 EDT, Height/Length Dosing, 70.4, kg, 08/20/23 14:01:00 EDT, Weight Dosing Portions of this record may have been created with voice recognition artificial intelligence software, specifically Phantom, Kynded and or [employer]. Occasional wrong-word or `mtlcr-x-cnxp? substitutions may have occurred due to the inherent limitations of voice recognition and artificial intelligence software. Follow-up No qualifying data available Patient Education Otitis Media, Adult, Ywph-vj-Iysj Problem List/Past Medical History Ongoing Cigarette smoker [...] Not Given Postpone due to refusal Normal [facility] Comment on above: Result Comment: Elec [...] Follow these instructions at home: ? Take tdcm-rst-rhvnmzj and prescription medicines only as told by [...] provider. Document Revised: 08/21/2021 Document Reviewed: 08/21/2021 [employer] Patient Education ? 2022 [employer] Normal [facility] PAP ACOG PANEL 2: 21 to 29on 02-22-2022 . . Normal [facility] Comment on above: Performed By: #### [id number] #### [facility] [address] [address] [address] Jj Norman Age Gdln ACOG Testing Normal [facility] Comment on above: Performed By: #### [id number] #### [facility] [address] [address] [address] Jj Norman DIAGNOSIS: Comment [facility] Comment on above: Result Comment: NEGA TIVE FOR INTRAEPITHELIAL LESION OR MALIGNANCY. Performed By: #### [id number] #### [facility] [address] [address] [address] Jj Norman Methodology: Comment [facility] Comment on above: Result Comment: This liquid based ThinPrep(R) pap test was screened with the use of an image guided system. Performed By: #### [id number] #### [facility] [address] [place] [address] Dr. Jj Norman Note: Comment Normal [facility] Comment on above: Result Comment: The Pap smear is a screening test designed to aid in the detection of premalignant and malignant conditions of the uterine cervix. It is not a diagnostic procedure and should not be used as the sole means of detecting cervical cancer. Both false-positive and false-negative reports do occur. . Performed By: #### [id number] #### [facility] [address] [place] [address] Dr. Jj Norman Performed by: Comment Normal [facility] Comment on above: Result Comment: Ashlyn Prado, Marketing Editor (ASCP) Performed By: #### [id number] #### [facility] [address] [place] [address] Dr. Jj Norman Reflex Criteria: Comment Normal [facility] Comment on above: Result Comment: The HPV DNA reflex criteria were not met with this specimen result therefore, no HPV testing was performed. . Performed By: #### [id number] #### [facility] [address] [place] [address] Dr. Jj Norman Specimen adequacy: Comment Normal [facility] Comment on above: Result Comment: Sati sfactory for evaluation. Endocervical and/or squamous metaplastic cells (endocervical component) are present. Performed By: #### [id number] #### [facility] [address] [place] [address] Dr. Jj Norman OPERATIVE REPORTon 1 OPERATIVE REPORT [address] [id number] OPERATIVE REPORT PATIENT NAME: IZABEL ARCE : 1995 MED REC NO: [id number] ROOM: ACCOUNT NO: [id number] ADMIT DATE: 07/06/2020 PROVIDER: Suzi Almonte DATE [...] external anal sphincteroplasty. SURGEON: Suzi Almonte DO PSYCHOLOGIST COUNSELING: Dagmar Womack DO ANESTHESIA: General endotracheal. FINDINGS: [...] top of the left portion using a dsqxuo-qq-crony, doubly placed, 1-0 Vicryl suture in four [...] to the surgery. SUZI ALMONTE [id number] Doc#: [id number] CC: Suzi Quinones Armida Normal [facility] POCT urine pregnancyon 07-06 Beta HCG ( test) Ql (U) Negative NEGATIVE [facility] [place] Comment on above: Specimens with hCG l evels near the threshold of the test (25 mIU/mL) may give a negative or indeterminate result. In such cases, another test should be performed with a new specimen in 48-72 hours. If early is suspected clinically in this setting, correlation with quantitative serum b-hCG level is suggested. TESTING PERFORMED AT [facility] [id number] [place] [address] Vital Signs Date Time Vital Sign Value Performing Clinician Facility 08-20-2023 13:59-0400 Blood Pressure Location [facility] 08-20-2023 13:59-0400 Body temperature 97.7 [degF] [facility] 08-20-2023 13:59-0400 Diastolic blood pressure 68 mm[Hg] [facility] 08-20-2023 13:59-0400 Heart rate 83 /min [facility] 08-20-2023 13:59-0400 SaO2% (BldA) [Mass fraction] 99 % [facility] 08-20-2023 13:59-0400 Systolic blood pressure 118 mm[Hg] [facility] 07-06-2020 10:45-0500 BP Diastolic 82 mm[Hg] [place], [place] 07-06-2020 10:45-0500 BP Systolic 121 mm[Hg] [facility] [place] 07-06-2020 10:45-0500 Pulse (Heart Rate) 89 /min [place], [place] 07-06-2020 10:45-0500 Pulse Oximetry 100 % [place], [place] 07-06-2020 10:15-0500 Body Temperature 97.59 [degF] [facility], [place] 07-06-2020 07:47-0500 BMI (Body Mass Index) 24 kg/m2 [place] 07-06-2020 07:47-0500 Body weight 65.43 kg [place] 07-06-2020 07:47-0500 Respiratory Rate 18 /min [facility], [place] 06-29-2020 10:13-0500 Height 165.1 cm Suzi Almonte [facility] [place] , [place] Encounters Encounter Date Encounter Type Care Provider Facility Start: 02-13-2024 End: 02-13-2024 ambulatory ALEX ARMIDA Not Available Start: 01-30-2024 End: 01-30-2024 ambulatory CESAR ASIF Not Available Start: 01-16-2024 End: 01-16-2024 ambulatory ALEX ARMIDA Not Available Start: 01-01-2024 End: 01-01-2024 ambulatory ALEX ARMIDA Not Available Start: 12-12-2023 End: 12-12-2023 ambulatory ALEX ARMIDA Not Available Start: 11-14-2023 End: 11-14-2023 ambulatory ALEX ARMIDA Not Available Start: 10-10-2023 End: 10-10-2023 ambulatory CESAR ASIF Not Available Start: 09-12-2023 End: 09-12-2023 ambulatory ALEX ARMIDA Not Available Start: 08-20-2023 End: 08-21-2023 ambulatory Aidan Melton Facility:[facility] Start: 08-20-2023 End: 08-20-2023 Patient encounter procedure Aidan Melton [facility] Start: 08-15-2023 End: 08-15-2023 ambulatory ALEX ARMIDA Not Available Start: 02-14-2022 End: 02-14-[address] NATHAN NICHOLSON Facility:[facility] Start: 07-06-2020 End: 07-06-2020 Patient encounter procedure USZI ALMONTE [facility] Start: 07-06-2020 End: 07-06-2020 Subsequent hospital visit by physician Suzi Almonte Work Phone: [facility] [place] Comment on above: Postoperative state (Primary Dx) Procedures Date Procedure Procedure Detail Performing Clinician Start: 07-06-2020 Urine test visual color cmprsn meths Suzi Almonte Work Phone: Start: 05-22-2013 left inguinal hernia repair Aidan Melton Plan of Treatment Date Care Activity Detail Author Start: 01-26-2020 Influenza vaccination Flu vaccine (# 1) [place], [place] End: 07-06-2020 Blood glucose - POCT Blood glucose - POCT Point of Care Testing Routine One Time for 1 Occurrences starting 07/06/2020 until 07/06/2020 [place] Comment on above: One Time for 1 Occur rences starting 07/06/2020 until 07/06/2020 Oxygen therapy [[facility] Data Set] Initiate Oxygen Therapy Protocol Respiratory Care Routine Daily until discontinued starting 07/06/2020 [place] Comment on above: Daily until disconti nued starting 07/06/2020 Phase I & II - meter ed glucose Phase I & II - metered glucose Point of Care Testing Routine As Needed until discontinued starting 07/06/2020 [place] Comment on above: As Needed until disc ontinued starting 07/06/2020 End: 07-06-2020 , urine POCT , urine POCT Point of Care Testing Routine One Time for 1 Occurrences starting 07/06/2020 until 07/06/2020 [place] Comment on above: One Time for 1 Occur rences starting 07/06/2020 until 07/06/2020 Immunizations Immunization Date Immunization Notes Care Provider Fa lilliam NEGATED: Highlighted row has not occurred!08-20-2023 influenza virus vaccine, unspecified formulation [facility] NEGATED: Highlighted row has not occurred!08-20-2023 SARS-CoV-2 mRNA (tozinameran 5y-11y) vaccine [facility] Payers Date Payer Category Payer Unknown [id number] 2.16.8 [id number] 1995 Unknown [id number] 2.16.84 [id number] 1995 Unknown [id number] 2.16.8 [id number] 1995 Unknown [id number] 2.16.84 [id number] 1995 Unknown [id number] 2.16.84 [id number] 1995 Unknown [id number] 2.16.84 [id number] 1995 Unknown [id number] 2.16.84 [id number] 1995 Unknown [id number] 2.16.84 [id number] 1995 Unknown [id number] 2.16.84 [id number] 1995 Unknown [id number] 2.16.84 [id number] 1995 Unknown [id number] 2.16.84 [id number] 1995 Unknown [id number] 2.16.84 [id number] 1959 Private Health Insurance [id number] Social History Date Type Detail Facility Start: 07-06-2020 End: 08-20-2023 Tobacco smoking status NHIS Former smoker [facility] Start: 07-06-2020 Tobacco use and exposure Never used [place] Start: 07-06-2020 Alcohol intake Ex-drinker (finding) [place] Start: 06-29-2020 Tobacco Comment Jun 2019 [facility] [place] Sex Assigned At Not on file [place] Exposure to SARS-CoV -2 (event) Not sure [place] Tobacco smoking status Never [facility] Sex Assigned At Female [facility] Functional Status Date Assessment Result Facility 08-20-2023 Functional Status N/A [facility] Hospital Discharge instructions 08-20-2023 Note Date & Type Note Facility 08-20-2023 Hospital Discharg e instructions Patient Education 08/20/2023 14:33:02 Otitis Media, Adult, Nvdc-an-Ajlt Otitis Media, Adult Otitis media is a [...] pain. Follow these instructions at home: Take sptu-gei-irxlxln and prescription medicines only as told by [...] provider. Document Revised: 08/21/2021 Document Reviewed: 08/21/2021 [employer] Patient Education 2022 [employer]. [facility] Evaluation + Plan note Note Date & Type Note Facility Evaluation + Plan note No data available for this section [facility] Progress note Note Date & Type Note Facility Progress note No data available for this section [facility] Discharge Instructions * Instructions* [...] Where can you learn more? Go to [email or web address] and sign in to your [employer] account. Enter U010 in the Search Health Information box to learn more about Learning About Urinary Catheter Care to PreventInfection. If you do not have an account, please click on the Sign Up Now link. Current as of: November 23, 2019 Content Version: 12.6 [employer]. Care instructions adapted under license by [employer]. If you have questions about a medical condition or this instruction, always ask your healthcare professional. [employer] disclaims any warranty or liability for your [...] dishwashing) Special Considerations) -Short local travel (restaurant, anglican) -Long distance travel > 1.5 hours (*See [...] office with any questions or concerns at [phone]. * If during office hours, your issue may require an appointment. If after hours, the answering service will connect you with the physician Stone Processing Machine Operator. * If you are concerned that your issue may be emergent, PLEASE CALL FIRST. ; Many issues may be resolved over the phone and avoid an unnecessary and expensive ER visit. ; If you truly have an emergency related to the surgery and call first: *You will be directed to the hospital ER in which you had your surgery. [facility] primarily or [facility] rarely. [facility] s patients may be asked to report to [facility] if Dr. Almonte s on-call partner is assuming responsibility. ; Calling first helps to expedite your care and avoids an unnecessary and expensive ambulance transfer to [facility]. Dial 911 or go to your closest ER if your emergency is related to a potential heart attack or stroke. 2 DISCHARGE MEDICINES * Sagle 325/5mg tablets or alternative narcotic. Take 1-2 tablets by mouth every 4-6 hours as needed for pain. - Per [facility] Board of Pharmacy laws, only 1 week of narcotics may be prescribed at a time. - Do not take extra Tylenol (Acetaminophen) orally as Sagle already contains the medicine. - May take 500mg orally every 4-6 hours if off of Sagle. * Ibuprofen 400-800mg is safe to take. [...] short term in order to heal successfully termite renewal inspector. Once you have fully recovered, you may focus on enjoying your life. Keep in mind, you will continue to heal for 6-12 months after surgery, so use common sense to protect your surgery (avoid repetitive heavy lifting, constipation, chronic pelvic strain.) In particular, if you had a hysterectomy, you may have both physical and emotional effects that maybe brief or termite renewal inspector. After hysterectomy, periods will stop and a [...] blood clots in the legs or lungs, [place], or stroke. 4. Elderly patients over the [...] you every step of the way. 5 [facility] [...] FAX COMPLETED FORM TO: Suzi Almonte, FAX: [phone] (Patient Sticker Here) 6 BLADDER DRAINAGE FOR [...] spout open. A commercially prepared urinary appliance immersion metalcleaner may also be usedas instructed. * It [...] INSTRUCTIONS * Call Dr. Almonte's office at [phone] on a weekly basis to report to [...] INSTRUCTIONS * Call Dr. Almonte's office at [phone] on a weekly basis to report on [...] Voided Amount Post Void Residual Amount 15 [facility] HOME SUPPLY LIST Please contact your local pharmacy or medical supply store regarding supplies for the type of catheter you may have. Transurethral Powers catheter 1 Night bag and 1 Day bag with leg strap Lubricating jelly Alcohol wipes Measuring had for toilet seat 5 50 mL syringes Self-Intermittent Catheterization Supplies: 100 #11-Persian female catheters (hydrophilic if possible) Lubricating jelly [...] the Pharmacy Counter at their 3 locations. [facility] [address] [place] [address] [place] [address] Store hours: Saturday through Saturday 9 AM to 6 PM Saturday 9 AM to 1 PM Saturday closed 16 documented in this encounter History of Present Illness * Mackenzie Pinon RN - 07/06/2020 2:44 PM EST Indwelling powers cath care and edu discussed with pt. Supplies sent home. Questions answered. Formsfaxed to [facility] office. Resident aware. * Donovan Gonzalez - 07/06/2020 11:15 AM EST CLINICAL PHARMACY NOTE: MEDS TO [facility] Patient?: No Total # of Prescriptions [...] SURGERY/PROCEDURE GUIDELINES As a patient at the [facility] you can expect quality medical and [...] morning of your surgery/procedure (Hibiclens if directed) Sanders your teeth, but do not swallow any [...] your Living Will or Durable Power of Warehouse Representative DO NOT take anticoagulants (blood thinners, aspiring [...] are recovering, the surgery family waiting room receptionist clerk can answer many of your family's questions. [...] with problem PERINEAL 4* TEAR CHILDBIRTH Procedures [place] OFFICE/OUTPT VISIT,PROCEDURE ONLY [place] REPAIR OF PERINEUM,NON OBSTETRICAL [place] REPAIR OF ANAL SPHINCTER,ADULT PERINEAL REVISION WITH [place] [address] [id number] [facility] Ordered Prescriptions (unrec ognized section and [...] section and content) DATE CREATED AUTHOR 07/12/2020 [facility] DATE CREATED AUTHOR AUTHOR'S ORGANIZ ATION 02/25/2022 [facility] DATE CREATED AUTHOR AUTHOR'S ORGANIZ ATION 08/21/[address] [facility] DATE CREATED AUTHOR AUTHOR'S ORGANIZ ATION 02/15/2024 [facility]me Specialists [facility] FOR RECORDS PERTAINING TO PATIENTS WHO ARE [...] BE BASED ON THE PRIMARY CLINICAL RECORDS. [employer]. provides no warranty or guarantee of the accuracy or completeness of information in this document.
== END 2024-02-20 19:13 | disposition home or self-care (01) ==
LOC: LAB 19:12
PROVIDERS: Visit Provider Obstetrics & Gynecology
DX: Z34.93 Encounter for supervision of normal pregnancy, unspecified, third trimester (principal)
CPT/HCPCS: 87081; 87150

== ENCOUNTER 2024-03-12 05:21 | Inpatient (IN) | payer OTHER, SELFPAY ==
[2024-03-12] VITALS (36 sets, daily range): BP systolic 110–136; BP diastolic 58–95; PULSE 66–95; TEMP 36.4–36.8; O2SAT 97–100
--- OUTSIDE RECORDS SUMMARY | 2024-03-12 05:24 | XMS_ITS | CCD ---
Author Organization [facility] Care Team Providers Care Cellular Biologist Name Role Phone Unavailable Primary Care Provider UnavailSUZI [place] Admitting Unavailable SUZI ALMONTE Attending Unavailable BHARAT, DR EVANS Attending Unavailable KARJENK, DR EVANS Consulting Unavailable MAXWELLK, DR EVANS Admitting Unavailable MISC, DR MADRID Primary Care Unavailable NONE, XXXX Primary Care Physician Unavailab Cheryl Moraes Unavailable Unavailable ClingmaAidan pozo Attending Unavailable Unavailable Primary Care Provider Unavailraymundo HUFFMAN, ALEX Attending Unavailable YEFRI, GOLDIE Attending Unavailable ARMIDA, ALEX Attending Unavailable ARMIDA, ALEX Attending Unavailable ARMIDA, ALEX Attending Unavailable ARMIDA, ALEX Attending Unavailable YEFRI, GOLDIE Attending Unavailable ARMIDA, ALEX Attending Unavailable ARMIDA, ALEX Attending Unavailable YEFRI, GOLDIE Attending Unavailable YEFRI, GOLDIE Attending Unavailable Medications Current Medications Medication Drug [...] day(s), # 14 tab(s), Refills(s) 0, Pharmacy: [facility], 165, cm, 08/20/23 14:01:00 [...] mg docusate sodium 50 mg / sennosides, skilled nursing 8.6 mg oral tablet (1 source) Start: [...] 07-06-2020 ondansetron (ZOFRAN) injecti on 4 mg Vit-Fe Fumarate-FA ( 19 PO) (6 sources) take 1 dose by mouth once daily Vit-Fe Fumarate-FA ( 19 PO) Take 1 each by mouth Daily Active 1 ml promethazine hydrochloride 25 mg/ml injection (1 source) Phenothiazine Start: 07-06-2020 End: 07-06-2020 promethazine (PHENERGAN) injection 6.25 mg 3 ml sodium chloride 9 mg/ml injection (5 sources) Start: 07-06-2020 sodium chloride flush 0.9 % injection Start: 07-06-2020 End: [...] SCREENING HUMAN PAPILLOMAVIRUS] Onset: 02-15-2022 Episodic Other and delivery including normal (4 sources) Third trimester ; Translations: [Encounter for supervision of normal , unspecified, third trimester] 02-27-2024 Episodic Other screening for suspected conditions (not mental disorders or infectious disease) (4 sources) Encounter for screening for malignant neoplasm of cervix; Translations: [ENC SCREENING MALIG NEOPLASM CERV] Onset: 02-14-2022 Episodic Otitis media and related conditions (1 source) Otitis media; Translations: [Otitis media, unspecified, right ear] Onset: 08-20-2023 Episodic Residual codes; unclassified (1 source) Needs influenza immunization 06-30-2019 Episodic Residual codes; unclassified (2 sources) Gestation period, 37 weeks; Translations: [37 weeks gestation of ] 02-27-2024 Episodic Residual codes; unclassified (2 sources) Gestation period, 38 weeks; Translations: [38 weeks gestation of ] 03-05-2024 Episodic Residual codes; unclassified (1 source) Postoperative state; Translations: [Postoperative state] Substance-related disorders (1 source) Cigarette smoker 06-30-2019 Chronic Comment on above: Added secondary to d ocumentation in Social History. Results Test Name Value Interpretation Reference Range Facility Urinalysis macro (dipstick) panel (U)on 03-05-2024 Bilirubin, UA Negative Negative - 4(70) +++ mg/dL [facility] Blood, UA Positive Negative - 50 Bebeto/mcL [facility] Comment on above: trace-intact Clarity, UA Clear [facility] Color, UA Yellow [facility] Glucose, UA Negative Negative - 1999(110) ++++ mg/dL [facility] Interpretation and review of laboratory results Abnormal [facility] Ketones, UA Negative Negative - 160(16) ++++ mg/dL [facility] Leukocytes, UA Trace Negative - 500+++ Jose/mcL [facility] Nitrite, UA Negative Negative - Positive [facility] pH, UA 7.0 5 - 9 [facility] Protein, UA Negative Negative - 1999(20) ++++ mg/dL [facility] Spec Grav, UA 1.020 1 - 1.03 [facility] Urobilinogen, UA 0.2 0.2 - 12 mg/dL [facility] Urinalysis macro (dipstick) panel (U)on 02-27-2024 Bilirubin, UA Negative Negative - 4(70) +++ mg/dL [facility] Blood, UA Negative Negative - 50 Bebeto/mcL [facility] Clarity, UA Clear [facility] Color, UA Yellow [facility] Glucose, UA Negative Negative - 1999(110) ++++ mg/dL [facility] Interpretation and review of laboratory results Normal [facility] Ketones, UA Negative Negative - 160(16) ++++ mg/dL [facility] Leukocytes, UA Negative Negative - 500+++ Jose/mcL [facility] Nitrite, UA Negative Negative - Positive [facility] pH, UA 6.0 5 - 9 [facility] Protein, UA Negative Negative - 1999(20) ++++ mg/dL [facility] Spec Grav, UA 1.020 1 - 1.03 [facility] Urobilinogen, UA 1.0 0.2 - 12 mg/dL [facility] Ambulatory Visit Summaryon 0 08-20-2023 Ambulatory Visit Summary IZABEL BUSTAMANTE :1995 Visit Date:08/20/2023 Ambulatory Visit Instructions Your [...] otitis media Duration: 7 Days Pickup at [facility] Unchanged duloxetine (duloxetine 60 mg Cap-DR) 60 Milligram By Mouth Every day Contact prescribing physician if questions or concerns Unchanged Non-Formulary Medication (Misc Medication) Control Pills daily Contact prescribing physician if questions or concerns Pharmacy Information [facility] 1985: [address] [place], [place] [id number] [phone] Medications and Immunizations Administered Not Given influenza [...] Follow these instructions at home: ? Take szcw-ckj-dgnecpc and prescription medicines only as told by [...] (more content not included)... Normal [facility] Family Medicine Office/Clini c Noteon 08-20-2023 Family Medicine Office/Clinic Note Chief Complaint right ear pain HPI Staff 27 year old female presents with right ear pain, popping ,congestion, muffled hearing, feels like liquid in ear. No drainage. symptoms began two days ago. History of Present Illness Reviewed and agree with above documented HPI by medical center manager. Patient is a 27-year-old female who complains [...] day(s), # 14 tab(s), Refills(s) 0, Pharmacy: [facility], 165, cm, 08/20/23 14:01:00 EDT, Height/Length Dosing, 70.4, kg, 08/20/23 14:01:00 EDT, Weight Dosing Portions of this record may have been created with voice recognition artificial intelligence software, specifically [employer], [employer] and or [employer]. Occasional wrong-word or `kfjlw-h-acud? substitutions may have occurred due to the inherent limitations of voice recognition and artificial intelligence software. Follow-up No qualifying data available Patient Education Otitis Media, Adult, Emop-bi-Axqy Problem List/Past Medical History Ongoing Cigarette smoker [...] - Not Given Patient Refuses SARS-CoV-2 mRNA (arlenemaddy 5y-11y) vac - Not Given Postpone due to refusal Normal [facility] Comment on above: Result Comment: Elec tronically [...] Follow these instructions at home: ? Take xzoq-nja-diwqicg and prescription medicines only as told by [...] provider. Document Revised: 08/21/2021 Document Reviewed: 08/21/2021 [employer] Patient Education ? 2022 [employer] Normal [facility] PAP ACOG PANEL 2: 21 to 29on 02-22-2022 . . Normal [facility] Comment on above: Performed By: #### [id number] #### [facility] [address] [place] [address] Dr. Jj Norman Age Gdln ACOG Testing - Normal [facility] Comment on above: Performed By: #### [id number] #### [facility] [address] [place] [address] Dr. Jj Norman DIAGNOSIS: Comment Normal [facility] Comment on above: Result Comment: NEGA TIVE FOR INTRAEPITHELIAL LESION OR MALIGNANCY. Performed By: #### [id number] #### [facility] [address] [place] [address] Dr. Jj Norman Methodology: Comment Normal [facility] Comment on above: Result Comment: This liquid based ThinPrep(R) pap test was screened with the use of an image guided system. Performed By: #### [id number] #### [facility] [address] [place] [address] Dr. Jj Norman Note: Comment Normal [facility] Comment on above: Result Comment: The Pap smear is a screening test designed to aid in the detection of premalignant and malignant conditions of the uterine cervix. It is not a diagnostic procedure and should not be used as the sole means of detecting cervical cancer. Both false-positive and false-negative reports do occur. . Performed By: #### [id number] #### [facility] [address] [place] [address] Dr. Jj Norman Performed by: Comment Normal [place] Comment on above: Result Comment: Ashlyn Prado, Insurance Verification Clerk (ASCP) Performed By: #### 4 [id number] #### [facility] [address] [place] [address] Dr. Jj Norman Reflex Criteria: Comment Normal [facility] Comment on above: Result Comment: The HPV DNA reflex criteria were not met with this specimen result therefore, no HPV testing was performed. . Performed By: #### [id number] #### [facility] [address] [place] [address] Dr. Jj Norman Specimen adequacy: Comment Normal [facility] Comment on above: Result Comment: Sati sfactory for evaluation. Endocervical and/or squamous metaplastic cells (endocervical component) are present. Performed By: #### [id number] #### [facility] [address] [place] [address] Dr. Jj Norman OPERATIVE REPORTon OPERATIVE REPORT [address] [address] OPERATIVE REPORT PATIENT NAME: IZABEL ARCE : 1995 MED REC NO: [id number] ROOM: ACCOUNT NO: [id number] ADMIT DATE: 07/06/2020 PROVIDER: Suzi Almonte DATE [...] external anal sphincteroplasty. SURGEON: Suzi Almonte DO TILE MOLDER: Dagmar Womack DO ANESTHESIA: General endotracheal. FINDINGS: [...] top of the left portion using a dnsjtq-ub-zoljn, doubly placed, 1-0 Vicryl suture in four [...] to the surgery. SUZI ALMONTE [id number] Doc#: [id number] CC: Suzi Fariao Normal [facility] POCT urine pregnancyon 07-06 Beta HCG ( test) Ql (U) Negative NEGATIVE [place], [place] Comment on above: Specimens with hCG l evels near the threshold of the test (25 mIU/mL) may give a negative or indeterminate result. In such cases, another test should be performed with a new specimen in 48-72 hours. If early is suspected clinically in this setting, correlation with quantitative serum b-hCG level is suggested. TESTING PERFORMED AT [facility] [address] [place] [address] Vital Signs Date Time Vital Sign Value Performing Clinician Facility 03-05-2024 09:16-0400 Body mass index (BMI) [Ratio] 28.86 kg/m2 Goldie KATZ Work Phone: [facility] 03-05-2024 09:16-0400 Body weight 78.65 kg Goldie KATZ Work Phone: [facility] 03-05-2024 09:16-0400 Diastolic blood pressure 70 mm[Hg] Goldie KATZ Work Phone: [facility] 03-05-2024 09:16-0400 Systolic blood pressure 120 mm[Hg] Goldie KATZ Work Phone: [facility] 02-27-2024 14:40-0400 Body mass index (BMI) [Ratio] 28.62 kg/m2 Goldie KATZ Work Phone: [facility] 02-27-2024 14:40-0400 Body weight 78.02 kg Goldie KATZ Work Phone: [facility] 02-27-2024 14:40-0400 Diastolic blood pressure 70 mm[Hg] Goldie KATZ Work Phone: [facility] 02-27-2024 14:40-0400 Systolic blood pressure 110 mm[Hg] Goldie KATZ Work Phone: [facility] 08-20-2023 13:59-0400 [facility] 08-20-2023 13:59-0400 Body temperature 97.7 [degF] [facility] 08-20-2023 13:59-0400 Diastolic blood pressure 68 mm[Hg] [facility] 08-20-2023 13:59-0400 Heart rate 83 /min [facility] 08-20-2023 13:59-0400 SaO2% (BldA) [Mass fraction] 99 % [facility] 08-20-2023 13:59-0400 Systolic blood pressure 118 mm[Hg] [facility] 07-06-2020 10:45-0500 BP Diastolic 82 mm[Hg] Suzi Almonte [place], [place] 07-06-2020 10:45-0500 BP Systolic 121 mm[Hg] [place] 07-06-2020 10:45-0500 Pulse (Heart Rate) 89 /min [place] 07-06-2020 10:45-0500 Pulse Oximetry 100 % [place] 07-06-2020 10:15-0500 Body Temperature 97.59 [degF] Suzi Almonte [facility], [place] 07-06-2020 07:47-0500 BMI (Body Mass Index) 24 kg/m2 [place], [place] 07-06-2020 07:47-0500 Body weight 65.43 [place] 07-06-2020 07:47-0500 Respiratory Rate 18 /min Suzi Almonte [place], [place] 06-29-2020 10:13-0500 Height 165.1 cm Suzi [place], [place] Encounters Encounter Date Encounter Type Care Provider Facility Start: 03-05-2024 End: 03-05-2024 Arvin flowsviktoria KATZ Work Phone: [facility] Start: 03-05-2024 End: 03-05-2024 Arvin KATZ Work Phone: [facility] Start: 03-05-2024 End: 03-05-2024 flow sheet Goldie KATZ Work Phone: [facility] Comment on above: 38 weeks gestation o f ; Third trimester Start: 03-05-2024 End: 03-05-2024 ambulatory GOLDIE ASIF Not Available Start: 02-27-2024 End: 02-27-2024 flow sheet Goldie KATZ Work Phone: [facility] Comment on above: 37 weeks gestation o f (Primary Dx); Third trimester Start: 02-27-2024 End: 02-27-2024 ambulatory GOLDIE ASIF Not Available Start: 02-27-2024 End: 02-27-2024 Bamboo flowsheet Goldie KATZ Work Phone: [facility] Start: 02-27-2024 End: 02-27-2024 Bamboo flowsheet Goldie KATZ Work Phone: [facility] Start: 02-20-2024 End: 02-20-2024 ambulatory ALEX ARMIDA Not Available Start: 02-13-2024 End: 02-13-2024 ambulatory ALEX ARMIDA Not Available Start: 01-30-2024 End: 01-30-2024 ambulatory GOLDIE YEFRI Not Available Start: 01-16-2024 End: 01-16-2024 ambulatory ALEX ARMIDA Not Available Start: 01-01-2024 End: 01-01-2024 ambulatory ALEX ARMIDA Not Available Start: 12-12-2023 End: 12-12-2023 ambulatory ALEX ARMIDA Not Available Start: 11-14-2023 End: 11-14-2023 ambulatory ALEX ARMIDA Not Available Start: 10-10-2023 End: 10-10-2023 ambulatory GOLDIE YEFRI Not Available Start: 09-12-2023 End: 09-12-2023 ambulatory ALEX ARMIDA Not Available Start: 08-20-2023 End: 08-21-2023 ambulatory Aidan Melton Facility: [facility] Start: 08-20-2023 End: 08-20-2023 Patient encounter procedure Aidan Butler Linh [facility] Start: 08-15-2023 End: 08-15-2023 ambulatory ALEX HUFFMAN Not Available Start: 02-14-2022 End: 02-14-[address] NATHAN NICHOLSON Facility: Start: 07-06-2020 End: 07-06-2020 Patient encounter procedure SUZI ALMONTE [facility] Start: 07-06-2020 End: 07-06-2020 Subsequent hospital visit by physician Suzi Almonte Work Phone: [facility] [place] Comment on above: Postoperative state (Primary Dx) Procedures Date Procedure Procedure Detail Performing Clinician Start: 03-05-2024 Urnls dip stick/tabl et rgnt non-auto w/o micrscp Goldie KATZ Work Phone: Start: 02-27-2024 Urnls dip stick/tabl et rgnt non-auto w/o micrscp Goldie KATZ Work Phone: Start: 07-06-2020 Urine test visual color cmprsn meths Suzi Almonte Work Phone: Start: 05-22-2013 left inguinal hernia repair Aidan Melton Plan of Treatment Date Care Activity Detail Author Start: 03-12-2024 End: 03-12-2024 Patient encounter procedure 03/12/2024 6:00 AM EDT Procedure Visit [facility] Alex Huffman, [address] [place] [address] [facility] Start: 03-05-2024 End: 03-05-2024 Patient encounter procedure 03/05/2024 9:10 AM EDT Routine [facility] [address] [place] [id number] Goldie Asif PA [address] [place] [address] [facility] Start: 02-27-2024 End: 02-27-2024 Patient encounter procedure 02/27/2024 2:30 PM EDT Routine [facility] [address] [facility] [place] [address] Goldie Asif PA [address] [facility] [place] [address] [facility] Comment on above: Arrived Start: 01-26-2020 Influenza vaccination Flu vaccine (# 1) [place], [place] End: 07-06-2020 Blood glucose - POCT Blood glucose - POCT Point of Care Testing Routine One Time for 1 Occurrences starting 07/06/2020 until 07/06/2020 [place], [place] Comment on above: One Time for 1 Occur rences starting 07/06/2020 until 07/06/2020 Oxygen therapy [[facility] Data Set] Initiate Oxygen Therapy Protocol Respiratory Care Routine Daily until discontinued starting 07/06/2020 [place], [place] Comment on above: Daily until disconti nued starting 07/06/2020 Phase I & II - meter ed glucose Phase I & II - metered glucose Point of Care Testing Routine As Needed until discontinued starting 07/06/2020 [place], [place] Comment on above: As Needed until disc ontinued starting 07/06/2020 End: 07-06-2020 , urine POCT , urine POCT Point of Care Testing Routine One Time for 1 Occurrences starting 07/06/2020 until 07/06/2020 [place], [place] Comment on above: One Time for 1 Occur rences starting 07/06/2020 until 07/06/2020 Immunizations Immunization Date Immunization Notes Care Provider Fa cility NEGATED: Highlighted row has not occurred!08-20-2023 influenza virus vaccine, unspecified formulation [facility] NEGATED: Highlighted row has not occurred!08-20-2023 SARS-CoV-2 mRNA (tozinameran 5y-11y) vaccine [facility] Payers Date Payer Category Payer Private Health Insurance [employer] [id number] 2018-Present [address] [place] [address] [id number] 1995 Unknown [id number] .175 1995 Unknown [id number] [id number] .593 1995 Unknown [id number] [id number] .727 1995 Unknown [id number] [id number] .1259 1995 Unknown [id number] [id number] .9 1995 Unknown [id number] [id number] .1259 1995 Unknown [id number] 2.16840.1.327379.3.579.2 .1259 1995 Unknown [id number] 2.16840.1.033333.3.579.2 .1259 1995 Unknown [id number] [id number] .1259 1995 Unknown [id number] [id number] .1259 1995 Unknown [id number] [id number] .1259 1995 Unknown [id number] [id number] .1259 1995 Unknown [id number] [id number] .1259 1995 Unknown [id number] [id number] .1259 1995 Unknown [id number] [id number] .1259 1959 Private Health Insurance [id number] Social History Date Type Detail Facility Start: 07-06-2020 End: 08-20-2023 Tobacco smoking status NHIS Former smoker [facility] Start: 07-06-2020 End: 08-15-2023 Tobacco use and exposure Never used [employer] Start: 07-06-2020 [facility] Start: 06-29-2020 Tobacco Comment Jun 2019 [facility] [employer] Sex Assigned At Not on file [facility] Exposure to SARS-CoV -2 (event) [facility] smoking status Never [facility] Start: 08-15-2023 Sex Assigned At Female [facility] Start: 08-15-2023 Tobacco smoking status NHIS Never smoked tobacco [facility] Start: 02-13-2024 End: 03-05-2024 Alcoholic beverage intake Lifetime non-drinker (finding) [facility] Start: 08-15-2023 History of Social function [facility] Start: 06-27-2023 [facility] Start: 1995 Sex assigned at Female [facility] Start: 03-14-2023 Gender identity Identifies as female gender (finding) [facility] Start: 03-14-2023 Sexual orientation Heterosexual (finding) [facility] Functional Status Date Assessment Result Facility 08-20-2023 Functional Status N/A [facility] [place] History of Present illness Narrative 03-05-2024 GIANNA Vergara - 03/05/2024 9:10 AM EDT Note Date & Type Note Facility 03-05-2024 History of Presen t illness Narrative Reason for Appointment: Patient ID: Izabel Bustamante is a 28 y.o. female who presents for Routine Visit Patient presents today for Return OB appointment. MEDICATIONS Current Outpatient Medications Medication Instructions Vit-Fe Fumarate-FA ( 19 PO) 1 each, Oral, Daily ALLERGIES No Known Allergies PROBLEMS Active Ambulatory Problems Diagnosis Date Noted No Active Ambulatory Problems Resolved Ambulatory Problems Diagnosis Date Noted No Resolved Ambulatory Problems No Additional Past Medical History HISTORY PAST MEDICAL HISTORY SOCIAL HISTORY History reviewed. No pertinent past medical history. Social History Tobacco Use Smoking status: Never Smokeless tobacco: Never Vaping Use Vaping status: Never Used Substance Use Topics Alcohol use: Never Drug use: Never FAMILY HISTORY No family history on file. SURGICAL HISTORY Past Surgical History: Procedure Laterality Date HERNIA REPAIR REVIEW OF SYSTEMS Review of Systems: Review of Systems Constitutional: Negative. HENT: Negative. Eyes: Negative. Respiratory: Negative. Cardiovascular: Negative. Gastrointestinal: Negative. Genitourinary: Negative. Musculoskeletal: Negative. Skin: Negative. Neurological: Negative. All other systems reviewed and are negative. Hematological: Negative. Endocrine: Negative. Allergic/Immunologic: Negative. OBJECTIVE Objective: Physical Exam Constitutional: Appearance: Normal appearance. She is well-developed and normal weight. HENT: Head: Normocephalic. Cardiovascular: Rate and Rhythm: Normal rate and regular rhythm. Pulses: Normal pulses. Pulmonary: Effort: Pulmonary effort is normal. Breath sounds: Normal breath sounds. Abdominal: General: Bowel sounds are normal. There is no distension. Palpations: Abdomen is soft. Tenderness: There is no abdominal tenderness. There is no guarding or rebound. Musculoskeletal: General: No swelling. Normal range of motion. Right lower leg: No edema. Left lower leg: No edema. Neurological: General: No focal deficit present. Mental Status: She is alert and oriented to person, place, and time. Skin: General: Skin is warm and dry. Psychiatric: Mood and Affect: Mood normal. Behavior: Behavior normal. Thought Content: Thought content normal. Judgment: Judgment normal. Vitals and nursing note reviewed. Exam conducted with a shop coordinator present. Vitals: Estimated body mass index is 28.86 kg/m as calculated from the following: Height as of 04/04/23: 5' 5 . Weight as of this encounter: 173 lb 6.4 oz. BP: 120/70 Patient's last menstrual period was 06/13/2023. ASSESSMENT & PLAN ICD-10-CM 1. 38 weeks gestation of Z3A.38 POCT urinalysis dipstick manually resulted 2. Third trimester Z34.93 POCT urinalysis dipstick manually resulted Return OB: Patient presents today for a routine obstetrics appointment. Patient is currently 38w0d . Patient states she is doing well but has complaints of being tired due to current . Patient has verbalizes frequent movement. labor precautions was discussed/given and patient was instructed to perform kick counts three times a day. Orders Placed This Encounter Procedures POCT urinalysis dipstick manually resulted Follow Up: Patient is to return to office in 1 week for routine OB appointment. Documented by Nini Myers LPN on behalf of: GIANNA Vergara documented in this encounter [facility] History of Present illness Narrative 02-27-2024 GIANNA Vergara - 02/27/2024 2:30 PM EDT Note Date & Type Note Facility 02-27-2024 History of Presen t illness Narrative Reason for Appointment: Patient ID: Izabel Bustamante is a 28 y.o. female who presents for Routine Visit Patient presents today for Return OB appointment. MEDICATIONS Current Outpatient Medications Medication Instructions Vit-Fe Fumarate-FA ( 19 PO) 1 each, Oral, Daily ALLERGIES No Known Allergies PROBLEMS Active Ambulatory Problems Diagnosis Date Noted No Active Ambulatory Problems Resolved Ambulatory Problems Diagnosis Date Noted No Resolved Ambulatory Problems No Additional Past Medical History HISTORY PAST MEDICAL HISTORY SOCIAL HISTORY History reviewed. No pertinent past medical history. Social History Tobacco Use Smoking status: Never Smokeless tobacco: Never Vaping Use Vaping status: Never Used Substance Use Topics Alcohol use: Never Drug use: Never FAMILY HISTORY No family history on file. SURGICAL HISTORY Past Surgical History: Procedure Laterality Date HERNIA REPAIR REVIEW OF SYSTEMS Review of Systems: Review of Systems Constitutional: Negative. HENT: Negative. Eyes: Negative. Respiratory: Negative. Cardiovascular: Negative. Gastrointestinal: Negative. Genitourinary: Negative. Musculoskeletal: Negative. Skin: Negative. Neurological: Negative. All other systems reviewed and are negative. Hematological: Negative. Endocrine: Negative. Allergic/Immunologic: Negative. OBJECTIVE Objective: Physical Exam Constitutional: Appearance: Normal appearance. She is normal weight. HENT: Head: Normocephalic. Cardiovascular: Rate and Rhythm: Normal rate. Pulses: Normal pulses. Pulmonary: Effort: Pulmonary effort is normal. Breath sounds: Normal breath sounds. Abdominal: Palpations: Abdomen is soft. Musculoskeletal: General: Normal range of motion. Neurological: General: No focal deficit present. Mental Status: She is alert and oriented to person, place, and time. Psychiatric: Mood and Affect: Mood normal. Behavior: Behavior normal. Thought Content: Thought content normal. Judgment: Judgment normal. Vitals and nursing note reviewed. Vitals: Estimated body mass index is 28.62 kg/m as calculated from the following: Height as of 04/04/23: 5' 5 . Weight as of this encounter: 172 lb. BP: 110/70 Patient's last menstrual period was 06/13/2023. ASSESSMENT & PLAN ICD-10-CM 1. Third trimester Z34.93 POCT urinalysis dipstick manually resulted Return OB: Patient presents today for a routine obstetrics appointment. Patient is currently 37w0d . Patient states she is doing well but has complaints of being tired due to current . Patient has verbalizes frequent movement. labor precautions was discussed/given and patient was instructed to perform kick counts three times a day. Orders Placed This Encounter Procedures POCT urinalysis dipstick manually resulted Follow Up: Patient is to return to office in 1 week for routine OB appointment. Documented by GIANNA eVrgara on behalf of: GIANNA Vergara documented in this encounter [facility] Discharge instructions 08-20-2023 Note Date & Type Note Facility 08-20-2023 Hospital Discharg e instructions Patient Education 08/20/2023 14:33:02 Otitis Media, Adult, [id number] Otitis Media, Adult Otitis media is a [...] pain. Follow these instructions at home: Take [id number] and prescription medicines only as told by [...] provider. Document Revised: 08/21/2021 Document Reviewed: 08/21/2021 [employer] Patient Education 2022 [employer]. [facility] Evaluation + Plan note Note Date & Type Note Facility Evaluation + Plan note No data available for this section [facility] Evaluation note Note Date & Type Note Facility Evaluation note Diagnosis 37 weeks gestation of - Primary Third trimester state, incidental documented in this encounter [facility] Evaluation note Note Date & Type Note Facility Evaluation note Diagnosis 38 weeks gestation of Third trimester state, incidental documented in this encounter [facility] Healthcare Progress note Note Date & Type Note Facility Progress note No data available for this section [facility] Discharge Instructions * Instructions* [...] Where can you learn more? Go to [email or web address] and sign in to your Sinnet account. Enter U010 in the Search Health Information box to learn more about Learning About Urinary Catheter Care to PreventInfection. If you do not have an account, please click on the Sign Up Now link. Current as of: November 23, 2019 Content Version: 12.6 [employer]. Care instructions adapted under license by [employer]. If you have questions about a medical condition or this instruction, always ask your healthcare professional. [employer] disclaims any warranty or liability for your [...] dishwashing) Special Considerations) -Short local travel (restaurant, alevism) -Long distance travel > 1.5 hours (*See [...] office with any questions or concerns at [phone]. * If during office hours, your issue may require an appointment. If after hours, the answering service will connect you with the physician Transitional Care Manager. * If you are concerned that your issue may be emergent, PLEASE CALL FIRST. ; Many issues may be resolved over the phone and avoid an unnecessary and expensive ER visit. ; If you truly have an emergency related to the surgery and call first: *You will be directed to the hospital ER in which you had your surgery. [facility] primarily or [facility] rarely. [facility] patients may be asked to report to [facility] if Dr. Almonte s on-call partner is assuming responsibility. ; Calling first helps to expedite your care and avoids an unnecessary and expensive ambulance transfer to [facility]. Dial 911 or go to your closest ER if your emergency is related to a potential heart attack or stroke. 2 DISCHARGE MEDICINES * [place] 325/5mg tablets or alternative narcotic. Take 1-2 tablets by mouth every 4-6 hours as needed for pain. - Per [facility] Board of Pharmacy laws, only 1 week of narcotics may be prescribed at a time. - Do not take extra Tylenol (Acetaminophen) orally as [place] already contains the medicine. - May take 500mg orally every 4-6 hours if off of [place]. * Ibuprofen 400-800mg is safe to take. [...] short term in order to heal successfully shelter. Once you have fully recovered, you may focus on enjoying your life. Keep in mind, you will continue to heal for 6-12 months after surgery, so use common sense to protect your surgery (avoid repetitive heavy lifting, constipation, chronic pelvic strain.) In particular, if you had a hysterectomy, you may have both physical and emotional effects that maybe brief or ferry terminal agent. After hysterectomy, periods will stop and a [...] blood clots in the legs or lungs, [place], or stroke. 4. Elderly patients over the [...] you every step of the way. 5 [facility] [...] COMPLETED FORM TO: Suzi Almonte DO FAX: [phone] (Patient Sticker Here) 6 BLADDER DRAINAGE FOR [...] plugging routine. Please call the office with denisaleguidoge problems. Removing the Catheter The catheter is [...] spout open. A commercially prepared urinary appliance book cleaner may also be usedas instructed. * [...] INSTRUCTIONS * Call Dr. Almonte's office at [phone] on a weekly basis to report to [...] INSTRUCTIONS * Call Dr. Almonte's office at [phone] on a weekly basis to report on [...] Voided Amount Post Void Residual Amount 15 [facility] S HEALTH HOME SUPPLY LIST Please contact your local pharmacy or medical supply store regarding supplies for the type of catheter you may have. Transurethral Powers catheter 1 Night bag and 1 Day bag with leg strap Lubricating jelly Alcohol wipes Measuring had for toilet seat 5 50 mL syringes Self-Intermittent Catheterization Supplies: 100 #11-Nauruan female catheters (hydrophilic if possible) Lubricating jelly [...] the Pharmacy Counter at their [address] [place] [id number] [place] [address] [place] [address] Store hours: Saturday through Saturday 9 AM to 6 PM Saturday 9 AM to 1 PM Saturday closed 16 documented in this encounter History of Present Illness * Mackenzie Pinon RN - 07/06/2020 2:44 PM EST Indwelling powers cath care and edu discussed with pt. Supplies sent home. Questions answered. [facility]axed to [facility]. Resident aware. * Donovan Gonzalez - 07/06/2020 11:15 AM EST CLINICAL PHARMACY NOTE: MEDS TO [facility] Select Patient?: No Total # of [...] mother. Question answered. Scripts per pharmacy * Cirsty Crump RN - 06/29/2020 10:27 AM EST DAY OF SURGERY/PROCEDURE GUIDELINES As a patient at the [facility] you can expect quality medical [...] morning of your surgery/procedure (Hibiclens if directed) [place] your teeth, but do not swallow any [...] your Living Will or Durable Power of Certified Nurse Aide DO NOT take anticoagulants (blood thinners, aspiring [...] are recovering, the surgery family waiting room human resources receptionist can answer many of your family's [...] with problem PERINEAL 4* TEAR CHILDBIRTH Procedures TN OFFICE/OUTPT VISIT,PROCEDURE ONLY TN REPAIR OF PERINEUM,NON OBSTETRICAL TN REPAIR OF ANAL SPHINCTER,ADULT PERINEAL REVISION WITH [place] [id number] [place] [id number] [facility] Reason Comments Routine Visit Ordered Prescriptions (unrec ognized section and content) [...] section and content) DATE CREATED AUTHOR 07/12/2020 [facility] DATE CREATED AUTHOR AUTHOR'S ORGANIZ ATION 02/25/2022 [facility] DATE CREATED AUTHOR AUTHOR'S ORGANIZ ATION 08/21/2023 [facility] DATE CREATED AUTHOR AUTHOR'S ORGANIZ ATION 03/07/[address] [facility] dicga Specialists [facility] FOR RECORDS PERTAINING TO PATIENTS [...] BE BASED ON THE PRIMARY CLINICAL RECORDS. [employer] provides no warranty or guarantee of the accuracy or completeness of information in this document.
[2024-03-12] MEDS: 0.9 % SODIUM CHLORIDE 1,000 ML 1000 ML IV ×2 (05:50→06:50)
[2024-03-12 06:33] LABS: Basophils Percent Auto 0.4 % (0.2-2.0); Eosinophils Absolute Auto 0.1 10^3/uL (0.0-0.7); Eosinophils Percent Auto 1.7 % (0.9-7.0); Hematocrit 38.4 % (36.0-48.0); Hemoglobin 13.3 g/dL (12.0-16.0); Immature Granulocytes Abs Auto 0.04 10^3/uL (0.00-0.03); Immature Granulocytes Pct Auto 0.5 % (0.0-0.5); Lymphocytes Absolute Auto 1.9 10^3/uL (1.2-3.8); Lymphocytes Percent Auto 22.5 % (20.5-60.0); Mean Corpuscular HGB Conc 34.6 g/dL (29.9-35.2); Mean Corpuscular Hemoglobin 32.4 pg (26.7-34.0); Mean Corpuscular Volume 93.7 fL (81.0-99.0); Mean Platelet Volume 12.8 fL (9.5-13.5); Monocytes Absolute Auto 0.6 10^3/uL (0.3-0.8); Monocytes Percent Auto 7.3 % (1.7-12.0); Neutrophils Absolute Auto 5.6 10^3/uL (1.4-6.5); Neutrophils Percent Auto 67.6 % (43.0-75.0); Platelet Count 149 10^3/uL (150-450); Red Cell Distribution Width 12.7 % (11.0-15.0); White Blood Count 8.3 10^3/uL (4.0-11.0)
[2024-03-12 07:04] LABS: Amphetamine Screen Urine NEGATIVE (NEGATIVE); Barbiturates Screen Urine NEGATIVE (NEGATIVE); Benzodiazepines Screen Urine NEGATIVE (NEGATIVE); Buprenorphine Screen Urine NEGATIVE (NEGATIVE); Cannabinoid Screen Urine NEGATIVE (NEGATIVE); Cocaine Screen Urine NEGATIVE (NEGATIVE); Methadone Screen Urine NEGATIVE (NEGATIVE); Methamphetamines Screen Urine NEGATIVE (NEGATIVE); Opiate Screen Urine NEGATIVE (NEGATIVE); Oxycodone Screen Urine NEGATIVE (NEGATIVE); Phencyclidine Screen Urine NEGATIVE (NEGATIVE); Tricyclic Antidepressant Urine NEGATIVE (NEGATIVE)
[2024-03-12] MEDS: CITRIC ACID/SODIUM CITRATE 30 ML SOLUTION ORACIT SHOHL'S SOLN PO (07:12)
[2024-03-12] MEDS: FAMOTIDINE/PF 20 MG/2 ML VIAL IV (07:12)
[2024-03-12] MEDS: METOCLOPRAMIDE HCL 10 MG/2 ML VIAL IVP (07:12)
--- NOTE | 2024-03-12 07:17 | PC.NURSE ---
Stefan grimm auto overhauler at bedside.
[2024-03-12] MEDS: CEFAZOLIN SODIUM/DEXTROSE,ISO 2 GM/50 ML PIGGYBACK IV (07:23)
[2024-03-12] MEDS: LACTATED RINGER'S SOLUTION 1,000 ML 50 ML IV (07:54)
--- NOTE | 2024-03-12 08:32 | PM.ONB ---
Brief Operative Note Date of procedure: 03/12/24 Pre-op diagnosis general: iup at 39wks, ho 4th degree laceration Post-op diagnosis: same as pre-op Procedure: NAME OF PROCEDURE: [ section ] PROCEDURE: Patient was taken back to the Operating Room where she was given a spinal anesthesia with Duramorph without difficulty. She was prepped and draped in the normal sterile fashion. A Pfannenstiel skin incision was then made 2 cm above the symphysis pubis and carried down to underlying rectus fascia using a Bovie. The fascia was incised in the midline and extended laterally using Ayala scissors. Two Darren clamps were placed on the superior aspect of the fascia and dissected off the underlying rectus muscles. The same was performed on the inferior aspect as well. The muscles were then in the midline. Peritoneum was identified and entered bluntly. The peritoneum was then extended superiorly and inferiorly with good visualization of the bladder. The bladder blade was inserted. A low transverse incision was made on the patient's uterus and extended laterally digitally. The was then delivered atraumatically after the bladder blade was removed in the cephalic position. The cord was clamped and cut. Cord blood was obtained. The infant was handed off to awaiting team. The patient's placenta was spontaneously delivered. The uterus was then exteriorized. The uterus was cleared of all clots and debris. The bladder blade was reinserted. The patient's uterine incision was closed using #0 Vicryl in a running lock fashion. Excellent hemostasis was assured. The uterus was then returned to the patient's abdomen. The patient's abdomen was copiously irrigated using warm saline. Peritoneal gutters were cleared of all clots and debris. Again excellent hemostasis was assured. The patient's peritoneum was closed using 3-0 Vicryl in a running fashion. The patient's fascia was closed using #0 Vicryl in a running fashion. The patient's skin was closed using 4-0 Vicryl subcuticularly. The patient tolerated the procedure well. Sponge, lap, and needle counts were correct x2. The patient was taken to the Recovery Room in stable condition. Anesthesia: spinal Surgeon: Joni Huffman Store Gift Wrap Associate: Lindsey Koch Estimated blood loss (mL): 575 Pathology: none sent Condition: stable Disposition: floor Urinary Catheter Management Urinary Catheter Management Urethral: Cath placed during this visit: no
--- NOTE | 2024-03-12 08:33 | PM.OBPRCCS ---
Procedure Pre-op/Post-op diagnoses: Pre-Op/Post-Op Diagnoses Operation Date: 03/12/24 07:30 <No data on this case meets the specified criteria> Procedure: Procedures Operation Date: 03/12/24 07:30 Actual Procedure Side Surgeon p Not Applicable Joni Huffman DO Predictive Maintenance Specialist: Lindsey Koch Estimated blood loss (mL): 575 Disposition: floor Anesthesia type: Spinal
[2024-03-12] MEDS: OXYTOCIN/0.9 % SODIUM CHLORIDE 20 UNITS/1,000 ML PLAST..BAG 125 UNIT IV (08:47)
[2024-03-12] MEDS: KETOROLAC TROMETHAMINE 30 MG/ML VIAL IVP ×2 (13:27→23:35)
[2024-03-12] MEDS: CEFAZOLIN SODIUM/DEXTROSE,ISO 1 GM/50 ML PREMIX IV (13:28)
[2024-03-12 16:41] LABS: Hematocrit 32.8 % (36.0-48.0); Hemoglobin 11.5 g/dL (12.0-16.0); Mean Corpuscular HGB Conc 35.1 g/dL (29.9-35.2); Mean Corpuscular Hemoglobin 32.8 pg (26.7-34.0); Mean Corpuscular Volume 93.4 fL (81.0-99.0); Mean Platelet Volume 12.5 fL (9.5-13.5); Platelet Count 128 10^3/uL (150-450); Red Blood Count 3.51 10^6/uL (4.20-5.40); Red Cell Distribution Width 12.7 % (11.0-15.0); White Blood Count 16.4 10^3/uL (4.0-11.0)
[2024-03-12 17:46] LABS: Lymphocytes Absolute Manual 1.96 10^3/uL (1.20-3.80); Monocytes Absolute Manual 0.16 10^3/uL (0.30-0.80)
[2024-03-13 03:56] VITALS: BP 106/62; TEMP 36.9
[2024-03-13 06:54] LABS: Basophils Percent Auto 0.2 % (0.2-2.0); Eosinophils Absolute Auto 0.1 10^3/uL (0.0-0.7); Eosinophils Percent Auto 0.6 % (0.9-7.0); Hematocrit 27.5 % (36.0-48.0); Hemoglobin 9.4 g/dL (12.0-16.0); Immature Granulocytes Pct Auto 0.6 % (0.0-0.5); Lymphocytes Absolute Auto 2.3 10^3/uL (1.2-3.8); Lymphocytes Percent Auto 14.7 % (20.5-60.0); Mean Corpuscular HGB Conc 34.2 g/dL (29.9-35.2); Mean Corpuscular Hemoglobin 32.5 pg (26.7-34.0); Mean Corpuscular Volume 95.2 fL (81.0-99.0); Mean Platelet Volume 12.4 fL (9.5-13.5); Monocytes Absolute Auto 1.2 10^3/uL (0.3-0.8); Monocytes Percent Auto 7.3 % (1.7-12.0); Neutrophils Absolute Auto 12.1 10^3/uL (1.4-6.5); Neutrophils Percent Auto 76.6 % (43.0-75.0); Platelet Count 128 10^3/uL (150-450); Red Blood Count 2.89 10^6/uL (4.20-5.40); Red Cell Distribution Width 12.9 % (11.0-15.0); White Blood Count 15.8 10^3/uL (4.0-11.0)
--- NOTE | 2024-03-13 07:47 | PM.OBPN ---
OB - PN: Subj Subjective Patient comments: no complaints and pain well controlled [place] status: doing well Exam Constitutional Vital Signs, click to edit/add: Last Vital Signs Temp 98.5 F 03/13/24 03:56 Pulse 80 03/12/24 20:32 Resp 16 03/12/24 14:45 BP 106/62 03/13/24 03:56 Pulse Ox 97 03/12/24 09:17 O2 Del Method Room Air 03/13/24 04:00 Documenting provider has reviewed patient's vital signs: yes Common normals: no apparent distress Respiratory Common normals: normal respiratory effort and clear to auscultation bilaterally Cardio Common normals: regular rate and regular rhythm GI Common normals: Normal to inspection, nondistended, normoactive bowel sounds present Extremity Common normals: no clubbing, cyanosis or edema and no calf tenderness Results Labs Labs: Short CBC 03/12/24 03/13/24 Range/Units 16:26 06:42 WBC 16.4 H 15.8 H (4.0-11.0) 10^3/uL Hgb 11.5 L 9.4 L (12.0-16.0) g/dL Hct 32.8 L 27.5 L (36.0-48.0) % Plt Count 128 L 128 L (150-450) 10^3/uL Urinary Catheter Management Urinary Catheter Management Urethral: Cath placed during this visit: yes, but has since been removed by the nurse Removal date: 03/12/24 Removal time: 20:45 OB - PN: A/P Plan - day: 1 Plan: routine postop care Time Spent with Patient Time: Total time spent is greater than 50% in coordination of care (as documented) at patient's floor/unit and/or counseling patient: Total time spent with greater than 50% in coordination of care (as documented) at patient's floor/unit and/or counseling patient: less than 15 minutes
[2024-03-13 08:16] VITALS: BP 114/67; PULSE 80; TEMP 36.7; O2SAT 97
[2024-03-13] MEDS: KETOROLAC TROMETHAMINE 30 MG/ML VIAL IVP (08:19)
[2024-03-13] MEDS: DOCUSATE SODIUM 100 MG CAPSULE PO ×2 (08:19→21:20)
[2024-03-13] MEDS: IBUPROFEN 400 MG TABLET 800 MG PO (16:45)
[2024-03-13 16:48] VITALS: BP 111/68; PULSE 85; TEMP 37; O2SAT 100
[2024-03-13 23:45] VITALS: O2SAT 100
[2024-03-13 23:46] VITALS: BP 108/71; PULSE 74; TEMP 36.7
[2024-03-14] MEDS: IBUPROFEN 400 MG TABLET 800 MG PO ×2 (00:49→09:32)
--- NOTE | 2024-03-14 09:18 | PM.OBPN ---
OB - PN: Subj Subjective Patient comments: no complaints and pain well controlled [place] status: doing well Exam Constitutional Vital Signs, click to edit/add: Last Vital Signs Temp 98.0 F 03/13/24 23:46 Pulse 74 03/13/24 23:46 Resp 14 03/13/24 23:45 BP 108/71 03/13/24 23:46 Pulse Ox 100 03/13/24 23:45 O2 Del Method Room Air 03/13/24 23:45 Documenting provider has reviewed patient's vital signs: yes Common normals: no apparent distress Respiratory Common normals: normal respiratory effort and clear to auscultation bilaterally Cardio Common normals: regular rate and regular rhythm GI Common normals: Normal to inspection, nondistended, normoactive bowel sounds present Extremity Common normals: no calf tenderness Urinary Catheter Management Urinary Catheter Management Urethral: Cath placed during this visit: yes, but has since been removed by the nurse Removal date: 03/12/24 Removal time: 20:45 OB - PN: A/P Plan - day: 2 Plan: routine postop care, discharge home and other (fu 1wk) Time Spent with Patient Time: Total time spent is greater than 50% in coordination of care (as documented) at patient's floor/unit and/or counseling patient: Total time spent with greater than 50% in coordination of care (as documented) at patient's floor/unit and/or counseling patient: less than 15 minutes
[2024-03-14 09:29] VITALS: BP 121/69; PULSE 106; TEMP 37.3
[2024-03-14] MEDS: DOCUSATE SODIUM 100 MG CAPSULE PO (09:32)
== END 2024-03-14 14:45 | disposition home or self-care (01) | DRG 788 ==
PROVIDERS: Admitting Provider Obstetrics & Gynecology; Visit Provider Obstetrics & Gynecology
PROC: 10D00Z1 Extraction of Products of Conception, Low, Open Approach (ICD-10-PCS; CPT 59514; principal; 2024-03-12 07:30)
DX: O82 Encounter for cesarean delivery without indication (principal); Z3A.39 39 weeks gestation of pregnancy; Z37.0 Single live birth; Z87.59 Personal history of other complications of pregnancy, childbirth and the puerperium
CPT/HCPCS: 36415; 80307; 85007; 85025; 85027; 86850; 86900; 86901; 94667; 94668; J0665; J0690; J1100; J1885; J2274; J2371; J2405; J2590; J2765

== ENCOUNTER 2024-03-18 08:14 | Outpatient (OUT) | payer OTHER, SELFPAY ==
--- OUTSIDE RECORDS SUMMARY | 2024-03-18 08:18 | XMS_ITS | CCD ---
Author Organization [facility] Care Team Providers Care Plater Helper Name Role Phone Unavailable Primary Care Provider [...] day(s), # 14 tab(s), Refills(s) 0, Pharmacy: [facility], 165, cm, 08/20/23 14:01:00 [...] 4 mg Vit-Fe Fumarate-FA ( 19 PO) (8 sources) take 1 dose by mouth once [...] Test Name Value Interpretation Reference Range Facility ALL CBC WITH AUTO DIFFon BASOPHILS ABSOLUTE AUTO 0 [facility] Basophils/100 WBC (Bld) 0.2 % 0.2 - 2.0 % [facility] Eosinophils/100 WBC (Bld) 0.6 % Low 0.9 - 7.0 % [facility] Erythrocyte distribution width (RBC) [Ratio] 12.9 % 11.0 - 15.0 % [facility] Hematocrit (Bld) [Volume fraction] 27.5 % Low 36.0 - 48.0 % [facility] Hemoglobin (Bld) [Mass/Vol] 9.4 g/dL Low 12.0 - 16.0 g/dL [facility] IMMATURE GRANULOCYTES ABS AUTO 0.1 High [facility] Immature granulocytes/100 WBC (Bld) 0.6 % High 0.0 - 0.5 % [facility] Interpretation and review of laboratory results Abnormal [facility] LYMPHOCYTES ABSOLUTE AUTO 2.3 [facility] Lymphocytes/100 WBC (Bld) 14.7 % Low 20.5 - 60.0 % [facility] MCH (RBC) [Entitic mass] 32.5 pg 26.7 - 34.0 pg [facility] MCHC (RBC) [Mass/Vol] 34.2 g/dL 29.9 - 35.2 g/dL [facility] MCV (RBC) [Entitic vol] 95.2 fL 81.0 - 99.0 fL [facility] MONOCYTES ABSOLUTE AUTO 1.2 High [facility] Monocytes/100 WBC (Bld) 7.3 % 1.7 - 12.0 % [facility] NEUTROPHILS ABSOLUTE AUTO 12.1 High [facility] Neutrophils/100 WBC (Bld) 76.6 % High 43.0 - 75.0 % [facility] Platelet mean volume (Bld) [Entitic vol] 12.4 fL 9.5 - 13.5 fL [facility] TBH EO # 0.1 [facility] TB [facility]T [facility] 2.89 Low [facility] WBC 15.8 High [facility] ALL CBC WITH AUTO DIFFon BASOPHILS ABSOLUTE AUTO 0 [facility] Basophils/100 WBC (Bld) 0.4 % 0.2 - 2.0 % [facility] Eosinophils/100 WBC (Bld) 1.7 % 0.9 - 7.0 % [facility] Erythrocyte distribution width (RBC) [Ratio] 12.7 % 11.0 - 15.0 % [facility] Hematocrit (Bld) [Volume fraction] 38.4 % 36.0 - 48.0 % [facility] Hemoglobin (Bld) [Mass/Vol] 13.3 g/dL 12.0 - 16.0 g/dL [facility] IMMATURE GRANULOCYTES ABS AUTO 0.04 High [facility] Immature granulocytes/100 WBC (Bld) 0.5 % 0.0 - 0.5 % [facility] Interpretation and review of laboratory results Abnormal [facility] LYMPHOCYTES ABSOLUTE AUTO 1.9 [facility] Lymphocytes/100 WBC (Bld) 22.5 % 20.5 - 60.0 % [facility] MCH (RBC) [Entitic mass] 32.4 pg 26.7 - 34.0 pg [facility] MCHC (RBC) [Mass/Vol] 34.6 g/dL 29.9 - 35.2 g/dL [facility] MCV (RBC) [Entitic vol] 93.7 fL 81.0 - 99.0 fL [facility] MONOCYTES ABSOLUTE AUTO 0.6 [facility] Monocytes/100 WBC (Bld) 7.3 % 1.7 - 12.0 % [facility] NEUTROPHILS ABSOLUTE AUTO 5.6 [facility] Neutrophils/100 WBC (Bld) 67.6 % 43.0 - 75.0 % [facility] Platelet mean volume (Bld) [Entitic vol] 12.8 fL 9.5 - 13.5 fL [facility] TBH EO # 0.1 [facility] PLT 149 Low [facility] RBC 4.1 Low [facility] WBC 8.3 [facility] Urinalysis macro (dipstick) panel (U)on 03-05-2024 Bilirubin, UA Negative Negative - 4(70) +++ mg/dL [facility] Blood, UA Positive Negative - 50 Bebeto/mcL [facility] Comment on above: trace-intact Clarity, UA Clear [facility] Color, UA Yellow [facility] Glucose, UA Negative Negative - 1999(110) ++++ mg/dL [facility] Interpretation and review of laboratory results Abnormal [facility] Ketones, UA Negative Negative - 160(16) ++++ mg/dL [facility] Leukocytes, UA Trace Negative - 500+++ Jose/mcL [facility] Nitrite, UA Negative Negative - Positive [facility] pH, UA 7.0 5 - 9 [facility] Protein, UA Negative Negative - 1999(20) ++++ mg/dL [facility] Spec Grav, UA 1.020 1 - 1.03 [facility] Urobilinogen, UA 0.2 0.2 - 12 mg/dL [facility] Urinalysis macro (dipstick) panel (U)on 02-27-2024 Bilirubin, UA Negative Negative - 4(70) +++ mg/dL [facility] Blood, UA Negative Negative - 50 Bebeto/mcL [facility] Clarity, UA Clear [facility] Color, UA Yellow [facility] Glucose, UA Negative Negative - 1999(110) ++++ mg/dL [facility] Interpretation and review of laboratory results Normal [facility] Ketones, UA Negative Negative - 160(16) ++++ mg/dL [facility] Leukocytes, UA Negative Negative - 500+++ Jose/mcL [facility] Nitrite, UA Negative Negative - Positive [facility] pH, UA 6.0 5 - 9 [facility] Protein, UA Negative Negative - 1999(20) ++++ mg/dL [facility] Spec Grav, UA 1.020 1 - 1.03 [facility] Urobilinogen, UA 1.0 0.2 - 12 mg/dL [facility] Ambulatory Visit Summaryon 0 08-20-2023 Ambulatory Visit Summary IZABEL BUSTAMANTE Kwasi :1995 Visit Date:08/20/2023 Ambulatory Visit Instructions Your [...] otitis media Duration: [address] [facility] Unchanged duloxetine (duloxetine 60 mg Cap-DR) 60 Milligram By Mouth Every day Contact prescribing physician if questions or concerns Unchanged Non-Formulary Medication (Misc Medication) Control Pills daily Contact prescribing physician if questions or concerns Pharmacy Information [facility]: [address] [place] [id number] [phone] Medications and Immunizations Administered Not Given influenza [...] Follow these instructions at home: ? Take fnfn-fns-eirtpaa and prescription medicines only as told by [...] yo (more content not included)... Normal [facility] Family Medicine Office/Clini c Noteon 08-20-2023 Family Medicine Office/Clinic Note Chief Complaint right ear pain HPI Staff 27 year old female presents with right ear pain, popping ,congestion, muffled hearing, feels like liquid in ear. No drainage. symptoms began two days ago. History of Present Illness Reviewed and agree with above documented HPI by medical office secretary. Patient is a 27-year-old female who complains [...] day(s), # 14 tab(s), Refills(s) 0, Pharmacy: [facility], 165, cm, 08/20/23 14:01:00 EDT, Height/Length Dosing, 70.4, kg, 08/20/23 14:01:00 EDT, Weight Dosing Portions of this record may have been created with voice recognition artificial intelligence software, specifically [employer], [employer] and or [employer]. Occasional wrong-word or `kitbd-n-oazh? substitutions may have occurred due to the inherent limitations of voice recognition and artificial intelligence software. Follow-up No qualifying data available Patient Education Otitis Media, Adult, Qskg-px-Wtrc Problem List/Past Medical History Ongoing Cigarette smoker [...] Postpone due to refusal Normal [facility] Comment on above: Result Comment: Elec [...] Follow these instructions at home: ? Take mndp-jbf-ullppba and prescription medicines only as told by [...] provider. Document Revised: 08/21/2021 Document Reviewed: 08/21/2021 [employer] Patient Education ? 2022 [employer] Normal [facility] PAP ACOG PANEL 2: 21 to 29on 02-22-2022 . . Normal [facility] Comment on above: Performed By: #### [id number] #### [facility] [address] [place] [address] Dr. Jj Norman Age Gdln ACOG Testing - [facility] Comment on above: Performed By: #### [id number] #### [facility] [address] [address] [address] Jj Norman DIAGNOSIS: Comment [facility] Comment on above: Result Comment: NEGA TIVE FOR INTRAEPITHELIAL LESION OR MALIGNANCY. Performed By: #### [id number] #### [facility] [address] [address] [address] Jj Norman Methodology: Comment [facility] Comment on above: Result Comment: This liquid based ThinPrep(R) pap test was screened with the use of an image guided system. Performed By: #### [id number] #### [facility] [address] [place] [address] Dr. Jj Norman Note: Comment [facility] Comment on above: Result Comment: The Pap smear is a screening test designed to aid in the detection of premalignant and malignant conditions of the uterine cervix. It is not a diagnostic procedure and should not be used as the sole means of detecting cervical cancer. Both false-positive and false-negative reports do occur. . Performed By: #### [id number] #### [facility] [address] [place] [address] Dr. Jj Norman Performed by: Comment Normal [facility] Comment on above: Result Comment: Ashlyn Prado, Edge Stainer Machine (ASCP) Performed By: #### [id number] #### [facility] [address] [place] [address] Dr. Jj Norman Reflex Criteria: Comment [facility] Comment on above: Result Comment: The HPV DNA reflex criteria were not met with this specimen result therefore, no HPV testing was performed. . Performed By: #### [id number] #### [facility] [address] [place] [address] Dr. Jj Norman Specimen adequacy: Comment Normal [facility] Comment on above: Result Comment: Sati sfactory for evaluation. Endocervical and/or squamous metaplastic cells (endocervical component) are present. Performed By: #### [id number] #### [facility] [address] [place] [address] Dr. Jj Norman OPERATIVE REPORTon OPERATIVE REPORT [address] [address] OPERATIVE REPORT PATIENT NAME: IZABEL ARCE : 1995 MED REC NO: [id number] ROOM: ACCOUNT NO: [id number] ADMIT DATE: 07/06/2020 PROVIDER: Suzi Almonte DATE [...] external anal sphincteroplasty. SURGEON: Suzi Almonte DO CLERK GUIDE: Dagmar Womack DO ANESTHESIA: General endotracheal. FINDINGS: [...] top of the left portion using a jtdore-mr-zibth, doubly placed, 1-0 Vicryl suture in four [...] to the surgery. SUZI ALMONTE [id number] Doc#: [id number] CC: Suzi Huffman Normal [facility] POCT urine pregnancyon 07-06 Beta HCG ( test) Ql (U) Negative NEGATIVE [facility] [place] [place] Comment on above: Specimens with hCG l evels near the threshold of the test (25 mIU/mL) may give a negative or indeterminate result. In such cases, another test should be performed with a new specimen in 48-72 hours. If early is suspected clinically in this setting, correlation with quantitative serum b-hCG level is suggested. TESTING PERFORMED AT [address] [place] [address] Vital Signs Date Time Vital Sign Value Performing Clinician Facility 03-05-2024 09:16-0400 Body mass index (BMI) [Ratio] 28.86 kg/m2 Goldie Rsoado PA Work Phone: [facility] 03-05-2024 09:16-0400 Body weight 78.65 kg Goldie Yefri PA Work Phone: [facility] 03-05-2024 09:16-0400 Diastolic blood pressure 70 mm[Hg] Goldie Hunter PA Work Phone: [facility] 03-05-2024 09:16-0400 Systolic blood pressure 120 mm[Hg] Goldie Hunter PA Work Phone: [facility] 02-27-2024 14:40-0400 Body mass index (BMI) [Ratio] 28.62 kg/m2 Goldie Yefri PA Work Phone: [facility] 02-27-2024 14:40-0400 Body weight 78.02 kg Goldie Yefri PA Work Phone: [facility] 02-27-2024 14:40-0400 Diastolic blood pressure 70 mm[Hg] Goldie Yefri PA Work Phone: [facility] 02-27-2024 14:40-0400 Systolic blood pressure 110 mm[Hg] Goldie Hunter PA Work Phone: [facility] 08-20-2023 13:59-0400 Blood Pressure Location [facility] 08-20-2023 13:59-0400 Body temperature 97.7 [degF] [facility] 08-20-2023 13:59-0400 Diastolic blood pressure 68 mm[Hg] [facility] 08-20-2023 13:59-0400 Heart rate 83 /min [facility] 08-20-2023 13:59-0400 SaO2% (BldA) [Mass fraction] 99 % [facility] 08-20-2023 13:59-0400 Systolic blood pressure 118 mm[Hg] Aidan Chelobaljit [facility] 07-06-2020 10:45-0500 BP Diastolic 82 mm[Hg] Suzi Costa [facility] , [place] 07-06-2020 10:45-0500 BP Systolic 121 mm[Hg] Suzi Costa [facility] , [place] 07-06-2020 10:45-0500 Pulse (Heart Rate) 89 /min Suzi Costa [facility], [place] 07-06-2020 10:45-0500 Pulse Oximetry 100 % Suzi Costa [facility] , [place] 07-06-2020 10:15-0500 Body Temperature 97.59 [degF] Suzi Costa [facility], [place] 07-06-2020 07:47-0500 BMI (Body Mass Index) 24 kg/m2 Suzi Costa [facility], [place] 07-06-2020 07:47-0500 Body weight 65.43 kg Suzi Costa [facility] , [place] 07-06-2020 07:47-0500 Respiratory Rate 18 /min Suzi Costa [facility], [place] 06-29-2020 10:13-0500 Height 165.1 cm Suzi Costa [facility] Encounters Encounter Date Encounter Type Care Provider Facility Start: 03-13-2024 End: 03-13-2024 [facility] Result Encounter Alex Armida DO Work Phone: [facility] Unsolicited Start: 03-13-2024 End: 03-13-2024 [facility] Result Encounter Alex Armida DO Work Phone: [facility] Unsolicited Start: 03-12-2024 End: 03-12-2024 [facility] Result Encounter Alex Armida DO Work Phone: [facility] Unsolicited Start: 03-12-2024 End: 03-12-2024 [facility] Result Encounter Alex Armida DO Work Phone: [facility] Unsolicited Start: 03-05-2024 End: 03-05-2024 Bamboo flowsheet Goldie Hunter PA Work Phone: [facility] Start: 03-05-2024 End: 03-05-2024 Bamboo flowsheet Goldie Rosado PA Work Phone: [facility] Start: 03-05-2024 End: 03-05-2024 flow sheet Goldie Rosado PA Work Phone: [facility] Comment on above: 38 weeks gestation o f ; Third trimester Start: 03-05-2024 End: 03-05-2024 ambulatory GOLDIE YEFRI Not Available Start: 02-27-2024 End: 02-27-2024 flow sheet Goldie Rosado PA Work Phone: [facility] Comment on above: 37 weeks gestation o f (Primary Dx); Third trimester Start: 02-27-2024 End: 02-27-2024 ambulatory GOLDIE YEFRI Not Available Start: 02-27-2024 End: 02-27-2024 Bamboo flowsheet Goldie Rosado PA Work Phone: [facility] Start: 02-27-2024 End: 02-27-2024 Bamboo flowsheet Goldie Rosado PA Work Phone: [facility] Start: 02-20-2024 End: 02-20-2024 ambulatory [...] Start: 08-20-2023 End: 08-21-2023 ambulatory Aidan Melton Facility:[facility] Start: 08-20-2023 End: 08-20-2023 Patient encounter procedure Aidan Melton [facility] Start: 08-15-2023 End: 08-15-2023 ambulatory ALEX ARMIDA Not Available Start: 02-14-2022 End: 02-14-[address] NATHAN NICHOLSON Facility:[facility] Start: 07-06-2020 End: 07-06-2020 Patient encounter procedure SUZI ALMONTE [facility] Start: 07-06-2020 End: 07-06-2020 Subsequent hospital visit by physician Suzi Almonte Work Phone: [facility] [place] Comment on above: Postoperative state (Primary Dx) Procedures Date Procedure Procedure Detail Performing Clinician Start: 03-13-2024 ALL CBC WITH AUTO DIFF Alex Armida DO Work Phone: Start: 03-12-2024 ALL CBC WITH AUTO DIFF Alex Armida DO Work Phone: Start: 03-05-2024 Urnls dip stick/tabl et rgnt [...] AM EDT Procedure Visit [facility] Armida, Alex, DO [address] [place] [address] [place] [address] [facility] Start: 03-05-2024 End: 03-05-2024 Patient encounter procedure 03/05/2024 9:10 AM EDT Routine [facility] [address] [place] [id number] Goldie Rosado PA [address] [place], [place] [id number] [facility] Start: 02-27-2024 End: 02-27-2024 Patient encounter procedure 02/27/2024 2:30 PM EDT Routine [facility] [address] [place] [address] Goldie Rosado PA [address] [place], [place] [id number] Arrived [facility] Comment on above: Arrived Start: 01-26-2020 Influenza vaccination Flu vaccine (# 1) [facility] [place] End: 07-06-2020 Blood glucose - POCT Blood glucose - POCT Point of Care Testing Routine One Time for 1 Occurrences starting 07/06/2020 until 07/06/2020 [facility] [place] Comment on above: One Time for 1 Occur rences starting 07/06/2020 until 07/06/2020 Oxygen therapy [[facility] Data Set] Initiate Oxygen Therapy Protocol Respiratory Care Routine Daily until discontinued starting 07/06/2020 [facility] [place] Comment on above: Daily until disconti nued starting 07/06/2020 Phase I & II - meter ed glucose Phase I & II - metered glucose Point of Care Testing Routine As Needed until discontinued starting 07/06/2020 [facility] [place] Comment on above: As Needed until disc ontinued starting 07/06/2020 End: 07-06-2020 , urine POCT , urine POCT Point of Care Testing Routine One Time for 1 Occurrences starting 07/06/2020 until 07[facility]06[facility] above: One Time for 1 Occur rences starting 07/06/2020 until 07/06/2020 Immunizations Immunization Date Immunization Notes Care Provider Fa kenty NEGATED: Highlighted row has not occurred!08-20-2023 influenza virus vaccine, unspecified formulation [facility] NEGATED: Highlighted row has not occurred!08-20-2023 SARS-CoV-2 mRNA (tozinameran 5y-11y) vaccine [facility] Payers Date Payer Category Payer Private Health Insurance [id number] 1995 Unknown [id number] 2.16.8 [id number] 1995 Unknown [id number] 2.16.84 [id number] 1995 Unknown [id number] 2.16.8 [id number] 1995 Unknown [id number] 2.16.84 [id number] 1995 Unknown [id number] 2.16.84 0.1.645529.3.579.2.9 1995 Unknown [id number] 2.16.84 0.1.710035.3.579.2.1259 1995 Unknown [id number] 2.16.84 0.1.735334.3.579.2.1259 1995 Unknown [id number] 2.16.84 0.1.622030.3.579.2.1259 1995 Unknown [id number] 2.16.84 0.1.390364.3.579.2.1259 1995 Unknown [id number] 2.16.84 0.1.008011.3.579.2.1259 1995 Unknown [id number] 2.16.84 0.1.829278.3.579.2.9 1995 Unknown [id number] 2.16.84 0.1.745547.3.579.2.1259 1995 Unknown [id number] 2.16.84 0.1.677851.3.579.2.1259 1995 Unknown [id number] 2.16.84 0.1.738017.3.579.2.1259 1995 Unknown [id number] 2.16.84 [id number] 1959 Private Health Insurance [id number] Social History Date Type Detail Facility Start: 07-06-2020 End: 08-20-2023 Tobacco smoking status NHIS Former smoker [facility] Start: 07-06-2020 End: 08-15-2023 Tobacco use and exposure Never used [employer] Start: 07-06-2020 Alcohol intake [facility] Start: 06-29-2020 Tobacco Comment Jun 2019 [facility] [employer] Sex Assigned At Not on file [facility] [employer] [place] Exposure to SARS-CoV -2 (event) Not sure [facility] [employer] [facility] [place] Tobacco smoking status Never [facility] Start: 08-15-2023 Sex Assigned At Female [facility] Start: 08-15-2023 Tobacco smoking status NHIS Never smoked tobacco [facility] Start: 02-13-2024 End: 03-05-2024 Alcoholic beverage intake Lifetime non-drinker (finding) [facility] Start: 08-15-2023 History of Social function [facility] Start: 06-27-2023 [facility] Start: 1995 Sex assigned at Female [facility] Start: 03-14-2023 Gender identity Identifies as female gender (finding) [facility] Start: 03-14-2023 Sexual orientation Heterosexual (finding) [facility] Functional Status Date Assessment Result Facility 08-20-2023 Functional Status N/A [facility] History of Present illness Narrative [...] nursing note reviewed. Exam conducted with a insurance advisor present. Vitals: Estimated body mass index is [...] for routine OB appointment. Documented by GIANNA Vergara on behalf of: GIANNA Vergara documented in this encounter [facility] Discharge instructions 08-20-2023 Note Date & Type Note Facility 08-20-2023 Hospital Discharg e instructions Patient Education 08/20/2023 14:33:02 Otitis Media, Adult, Wwly-wg-Zhzy Otitis Media, Adult Otitis media is a [...] pain. Follow these instructions at home: Take ieen-weo-dqrraab and prescription medicines only as told by [...] provider. Document Revised: 08/21/2021 Document Reviewed: 08/21/2021 [employer] Patient Education 2022 [employer]. [facility] Evaluation + Plan note Note Date & Type Note Facility Evaluation + Plan note No data available for this section [facility] Evaluation note Note Date & Type Note Facility Evaluation note Diagnosis 37 weeks gestation of - Primary Third trimester state, incidental documented in this encounter [facility] Evaluation note Note Date & Type Note Facility Evaluation note Diagnosis 38 weeks gestation of Third trimester state, incidental documented in this encounter [facility] Progress note Note Date & Type Note Facility Progress note No data available for this section [facility] Discharge Instructions * Instructions* [...] Where can you learn more? Go to [email or web address] and sign in to your [employer] account. Enter U010 in the Search Health Information box to learn more about Learning About Urinary Catheter Care to PreventInfection. If you do not have an account, please click on the Sign Up Now link. Current as of: November 23, 2019 Content Version: 12.6 [email or web address]. Care instructions adapted under license by [employer]. If you have questions about a medical condition or this instruction, always ask your healthcare professional. [email or web address] disclaims any warranty or liability for your [...] dishwashing) Special Considerations) -Short local travel (restaurant, faith) -Long distance travel > 1.5 hours (*See [...] office with any questions or concerns at [phone]. * If during office hours, your issue may require an appointment. If after hours, the answering service will connect you with the physician [employer]. * If you are concerned that your issue may be emergent, PLEASE CALL FIRST. ; Many issues may be resolved over the phone and avoid an unnecessary and expensive ER visit. ; If you truly have an emergency related to the surgery and call first: *You will be directed to the hospital ER in which you had your surgery. [facility] primarily or [facility] rarely. [facility] patients may be asked to report to [facility] if Dr. Almonte s on-call partner is assuming responsibility. ; Calling first helps to expedite your care and avoids an unnecessary and expensive ambulance transfer to [facility]. Dial 911 or go to your closest ER if your emergency is related to a potential heart attack or stroke. 2 DISCHARGE MEDICINES * [place] 325/5mg tablets or alternative narcotic. Take 1-2 tablets by mouth every 4-6 hours as needed for pain. - Per [facility] Board of Pharmacy laws, only 1 week of narcotics may be prescribed at a time. - Do not take extra Tylenol (Acetaminophen) orally as [place] already contains the medicine. - May take 500mg orally every 4-6 hours if off of [place]. * Ibuprofen 400-800mg is safe to take. [...] short term in order to heal successfully care home. Once you have fully recovered, you may focus on enjoying your life. Keep in mind, you will continue to heal for 6-12 months after surgery, so use common sense to protect your surgery (avoid repetitive heavy lifting, constipation, chronic pelvic strain.) In particular, if you had a hysterectomy, you may have both physical and emotional effects that maybe brief or care home. After hysterectomy, periods will stop and a [...] you every step of the way. 5 [facility] S [...] a voiding trial unless directed by Dr. Almnote at the first post-operative visit. (*RN to [...] COMPLETED FORM TO: Suzi Almonte DO FAX: [phone] (Patient Sticker Here) 6 BLADDER DRAINAGE FOR [...] spout open. A commercially prepared urinary appliance catch basin cleaner may also be usedas instructed. * [...] INSTRUCTIONS * Call Dr. Almonte's office at [phone] on a weekly basis to report to [...] INSTRUCTIONS * Call Dr. Almonte's office at [phone] on a weekly basis to report on [...] Voided Amount Post Void Residual Amount 15 [facility] S HEALTH HOME SUPPLY LIST Please contact your local pharmacy or medical supply store regarding supplies for the type of catheter you may have. Transurethral Powers catheter 1 Night bag and 1 Day bag with leg strap Lubricating jelly Alcohol wipes Measuring had for toilet seat 5 50 mL syringes Self-Intermittent Catheterization Supplies: 100 #11-Belizean female catheters (hydrophilic if possible) Lubricating jelly [...] the Pharmacy Counter at their 3 locations. [facility] [address] [address] [place] [address] [place] [address] Store hours: Saturday through Saturday 9 AM to 6 PM Saturday 9 AM to 1 PM Saturday closed 16 documented in this encounter History of Present Illness * Mackenzie Pinon RN - 07/06/2020 2:44 PM EST Indwelling powers cath care and edu discussed with pt. Supplies sent home. Questions answered. Formsfaxed to [facility] office. Resident aware. * Donovan Gonzalez - 07/06/2020 11:15 AM EST CLINICAL PHARMACY NOTE: MEDS TO [facility] Select Patient?: No Total # of Prescriptions [...] SURGERY/PROCEDURE GUIDELINES As a patient at the [facility] you can expect quality [...] morning of your surgery/procedure (Hibiclens if directed) [place] your teeth, but do not swallow any [...] your Living Will or Durable Power of Mattress Stripper DO NOT take anticoagulants (blood thinners, aspiring [...] are recovering, the surgery family waiting room office assistant receptionist can answer many of your family's [...] with problem PERINEAL 4* TEAR CHILDBIRTH Procedures [place] OFFICE/OUTPT VISIT,PROCEDURE ONLY [place] REPAIR OF PERINEUM,NON OBSTETRICAL [place] REPAIR OF ANAL SPHINCTER,ADULT PERINEAL REVISION WITH ANAL SPHINCTEROPLASTY Suzi Almonte, [id number] [facility] Reason Comments Routine Visit Ordered Prescriptions [...] section and content) DATE CREATED AUTHOR 07/12/2020 [facility] DATE CREATED AUTHOR AUTHOR'S ORGANIZ ATION 02/25/2022 [facility] DATE CREATED AUTHOR AUTHOR'S ORGANIZ ATION 08/21/2023 [facility] DATE CREATED AUTHOR AUTHOR'S ORGANIZ ATION 03/07/2024 [facility] FOR RECORDS PERTAINING TO PATIENTS WHO [...] BE BASED ON THE PRIMARY CLINICAL RECORDS. [employer] [facility]. provides no warranty or guarantee of the accuracy or completeness of information in this document.
[2024-03-18 10:10] VITALS: BP 119/83; PULSE 88; TEMP 36.7; O2SAT 98
== END 2024-03-18 10:00 | disposition home or self-care (01) ==
LOC: FBCO 08:15
PROVIDERS: Visit Provider Obstetrics & Gynecology
DX: Z39.2 Encounter for routine postpartum follow-up (principal)